=== PATIENT | male | born 1955 | race African-American/Black ===

== ENCOUNTER → 2016-11-29 | Outpatient (CLI) | payer OTHER, BC ==
[~2016-11-29] MED LIST: ALLOPURINOL 30300 M2 PO; AMLODIPINE-BEN1 EAC5 PO; ATENOLOL 50MG T50 M1 PO; EXCEDRIN CAPLE1 EACH PO; HYDROCHLOROTHIA25 M1 PO; NORCO 5-325 TA1 EACH PO; NORVASC5 MG PO; PENICILLIN V P500 MG PO; PEPCID20 MG PO; PRILOSEC OTC20 MG PO; PRILOSEC20 MG PO; PROBIOTIC1 EAC1 PO; SUPER B-50 COM1 EACH PO; TEMAZEPAM15 MG PO; ZPAK PO
== END ==
LOC: CAT 14:36
DX: K11.5 Sialolithiasis (principal); K11.21 Acute sialoadenitis

== ENCOUNTER → 2016-12-03 | Outpatient (CLI) | payer OTHER, BC | LOC: ULTRA 13:43 | DX: K11.21 Acute sialoadenitis (principal) ==

== ENCOUNTER 2017-09-04 02:02 | Inpatient (IN) | payer OTHER, BC ==
[~2017-09-04] VITALS: Ht 193 cm; Wt 99.8 kg
--- NOTE | ~2017-09-04 | D ---
[facility] [place] [address] DISCHARGE SUMMARY Name: DNOI COTA Room #: 428-P [facility] IN ..#: [id number] Admission: 09/04/17 Attend Phys: Bakari Gordon MD Discharge: 09/06/17 Date of : 51 Report #: [id number] THIS REPORT FOR: //name// CC: Bakari Gordon DATE OF SERVICE: 09/06/2017 FINAL DIAGNOSES: 1. Acute influenza. 2. Febrile illness. 3. End-stage renal disease. 4. Anticholinergic drug overdose. 5. Altered mental status due to anticholinergic drug overdose. HOSPITAL COURSE: The patient was admitted from dialysis with fever and altered mental status. Influenza swab was positive and he was treated with Tamiflu. There was also a concern that he may have taken about half a bottle of Phenergan with codeine prior to dialysis and felt there may have been an anticholinergic effect. Overnight, he was much improved and mental status returned to baseline. He had one session of hemodialysis and no other interval complication. PHYSICAL EXAMINATION: On the day of discharge: GENERAL: He was awake and alert. VITAL SIGNS: With stable vital signs. LUNGS: Clear. HEART: Regular. ABDOMEN: Soft. Normoactive bowel sounds. EXTREMITIES: No edema. DISPOSITION: He will be discharged to home with renal diet, activity as tolerated, resume all home medications plus Tamiflu for 3 more days. Follow up with Dr. Suazo in 1 week. <ELECTRONICALLY SIGNED> By: River Chavarria MD 09/06/17 1540 1028 1208 River Chavarria MD /nt
--- NOTE | ~2017-09-04 | H ---
[facility] [place] [address] HISTORY AND PHYSICAL Name: ODNI COTA Room #: 170-6 ADM IN M.R.#: [id number] Admission: 09/04/17 Attend Phys: Bakari Gordon MD Discharge: Date of : 51 Report #: [id number] THIS REPORT FOR: //name// CC: Bakari Gordon DATE OF SERVICE: 09/04/2017 CHIEF COMPLAINT: Confusion. HISTORY OF PRESENT ILLNESS: The patient is a 62-year-old gentleman who came to the Emergency Room from his dialysis center with confusion and altered mental status. He had just finished up his usually scheduled dialysis run when the staff noted that he seemed very confused and lethargic. He is normally alert and oriented and without any difficulty. Subsequently it was noted that he had recently taken about 1/4 of a bottle of cough medicine containing Phenergan and codeine for an apparent cough. By the time he presented to the Emergency Room, he had a temperature of 103.2 and influenza swab was positive. PAST MEDICAL HISTORY: Hypertension, gout, insomnia, previous knee dislocation, end-stage renal disease, on hemodialysis, chronic low back pain due to disk herniation. PAST SURGICAL HISTORY: As above. FAMILY HISTORY: Noncontributory. SOCIAL HISTORY: and lives with his . There is tobacco history, [id number]. ALLERGIES: None. MEDICATIONS: Prilosec, probiotic, amlodipine, Nephrocaps, metoprolol, oxycodone, Zoloft. REVIEW OF SYSTEMS: He does not remember how he got here, but denies headache, chest pain, shortness of breath, abdominal pain, nausea, vomiting, diarrhea, constipation, dysuria, syncope. OBJECTIVE: VITAL SIGNS: Temperature 37.8, pulse 86, respirations 14, blood pressure 172/86, O2 sat 93% on room air. GENERAL: He is awake and alert, sitting up watching TV. HEAD AND NECK: Unremarkable. LUNGS: Clear. HEART: Regular. ABDOMEN: Soft, normoactive bowel sounds. [facility] [address] [place] [address] HISTORY AND PHYSICAL Name: DONI COTA Room #: [facility] ADM IN ..#: [id number] Admission: 09/04/17 Attend Phys: Bakari Gordon MD Discharge: Date of : 51 Report #: [id number] EXTREMITIES: No edema. NEUROLOGIC: Cranial nerves intact. Speech is fluent. Motor strength 5/5 throughout. LABORATORY DATA: Pertinent findings were influenza B swab positive. ASSESSMENT: 1. Acute influenza B. 2. Febrile illness due to the above. 3. Overdose of anticholinergic medication. 4. Acute toxic metabolic encephalopathy due to the above. 5. End-stage renal disease, on hemodialysis. 6. Hypertension. PLAN: His mental status seems to be improving and he was appropriate this afternoon. Nursing staff have not picked up any new problems this afternoon in that regard. Tamiflu has been ordered and dialysis will be managed in house. Anticipate early discharge home once he is up and moving. <ELECTRONICALLY SIGNED> By: River Chavarria MD 09/04/17 1432 1419 1431 River Chavarria MD /nt
--- NOTE | ~2017-09-04 | HC ---
[facility] [place] [address] CONSULTATION Name: DONI COTA Room #: 428-P [facility] IN ..#: [id number] Admission: 09/04/17 Attend Phys: Bakari Gordon MD Discharge: 09/06/17 Date of : 51 Report #: [id number] THIS REPORT FOR: //name// CC: Bakari Gordon REASON FOR CONSULTATION: End-stage renal disease. REASON FOR PRESENTATION: Mental status issues. HISTORY OF PRESENT ILLNESS: This is a well known patient to me. This is a 62-year-old with longstanding hypertension, maintained on hemodialysis every Saturday, Saturday and Saturday. He was told by his primary care physician that he might have had a flu for the last few days. He was prescribed codeine cough syrup. In the dialysis unit, he had some mental status issues and was brought for further evaluation and management. He is back to his baseline when I evaluated him. He had some issues with high temperature in the last few days and dry cough. He also lost his appetite. No active issues related to his dialysis. He tested positive for influenza and was admitted for further evaluation and management. PAST MEDICAL HISTORY: 1. Hypertension. 2. End-stage renal disease, maintained on dialysis every Saturday, Saturday and Saturday. 3. Recent flu. 4. GERD. ALLERGIES: No known drug allergies. PAST SURGICAL HISTORY: AV fistula. SOCIAL HISTORY: . Lives with his . No drug or alcohol abuse. FAMILY HISTORY: His mother had end-stage renal disease. MEDICATIONS: 1. Metoprolol. 2. Amlodipine. 3. Aspirin. 4. Zoloft. REVIEW OF SYSTEMS: GENERAL: As per the history of present illness. CARDIOVASCULAR: No chest pain or palpitation. PULMONARY: Significant for cough. GASTROINTESTINAL: Decreased p.o. intake with some vomiting. GENITOURINARY: No frequency, no urgency. [facility] [address] [place] [address] CONSULTATION Name: DONI COTA Room #: 428-P [facility]#: [id number] Admission: 09/04/17 Attend Phys: Bakari Gordon MD Discharge: 09/06/17 Date of : 51 Report #: [id number] MUSCULOSKELETAL: Significant for myalgia. PHYSICAL EXAMINATION: GENERAL: He is alert, oriented when evaluated in the Emergency Room. VITAL SIGNS: Blood pressure was 172/86. Temperature was elevated at 39.6. Pulse rate was 86. HEAD AND NECK: No jugular venous distention, no bruit, no thyromegaly. CHEST: Clear to auscultation bilaterally. CARDIOVASCULAR: Regular with no rub. ABDOMEN: Soft, nontender with no hepatosplenomegaly. LOWER EXTREMITIES: No edema with intact peripheral pulses. LABORATORY DATA: Reviewed. Hemoglobin 9.5, BUN is 6, creatinine 3.2. BNP is elevated at 6000. Chest x-ray with no pneumonia. ASSESSMENT, IMPRESSION AND PLAN: 1. End-stage renal disease. 2. Flu. 3. Hypertension. 4. Admission. 5. Dialysis will be arranged for the patient tomorrow. 6. Tamiflu. 7. Blood pressure control. 8. No further codeine. <ELECTRONICALLY SIGNED> By: Myron Oneil MD 09/09/17 0957 1012 1044 Myron Oneil MD /nt
--- NOTE | ~2017-09-04 | EKG ---
[place] [address] [facility] [place] [address] ELECTROCARDIOGRAM REPORT Name: DONI COTA Room #: 170-6 ADM IN M.R.#: [id number] Admission: 09/04/17 Attend Phys: Bakari Gordon MD Discharge: Date of : 51 Report #: [id number] THIS REPORT FOR: //name// [facility] ED Test Date: 2017-09-04 Test Time: 02:38:18 Pat Name: DONI COTA Department: Room: 170 Gender: M Career Placement Specialist: VALENTINA : 1955 Requested By: Ignacio Garner Order Number: [id number] MD: Theo Fernández Measurements Intervals [place] Rate: 90 P: 47 [place]: 157 QRS: -50 QRSD: 84 T: 30 QT: 392 QTc: 480 Interpretive Statements Sinus rhythm Left anterior hemiblock Poor R wave progression Baseline wander in lead(s) Compared to ECG 03/26/2014 16:47:03 [place] has shifted leftward Electronically Signed On 09-04-2017 8:14:28 COMMUNITY AMBASSADOR by Theo Fernández [email or web address] <ELECTRONICALLY SIGNED> By: Theo Fernández MD, [facility] 09/04/17 0814 0238 0238 Theo Fernández MD, [facility] /EPI
--- NOTE | ~2017-09-04 | EKG ---
[place] [address] [facility] [place] [place] [address] ELECTROCARDIOGRAM REPORT Name: DONI COTA Room #: 170-6 ADM IN M.R.#: [id number] Admission: 09/04/17 Attend Phys: Bakari Gordon MD Discharge: Date of : 51 Report #: [id number] THIS REPORT FOR: //name// [facility] ED Test Date: 2017-09-04 Test Time: 02:46:07 Pat Name: DONI COTA Department: Room: 170 6 Gender: M Retail Planning Manager: VALENTINA : 1955 Requested By: Ignacio Garner Order Number: [id number] MD: Theo Fernández Measurements Intervals [place] Rate: 91 P: 42 [place]: 162 QRS: -50 QRSD: 80 T: 14 QT: 376 QTc: 463 Interpretive Statements Sinus rhythm Left anterior hemiblock Nonspecific T wave abnormality Compared to ECG 03/26/2014 16:47:03 No significant change was found Electronically Signed On 09-04-2017 8:14:52 YOUTH CAREER SPECIALIST by Theo Fernández [email or web address] <ELECTRONICALLY SIGNED> By: Theo Fernández MD, [facility] 09/04/17 0814 0246 0246 Theo Fernández MD, [facility] /EPI
[2017-09-04 02:03] VITALS: BP 194/96
[2017-09-04 02:30] LABS: BE(vivo) 6.4 mmol/L (-2 to +3); HCO3 29.6 mmol/L (22.0-26.0); PO2 VENOUS 52.7 mmHg (35.0-45.0)
[2017-09-04 02:39] LABS: HEMATOCRIT 29.1 % (42.0-52.0); HEMOGLOBIN 9.5 gm/dL (14.0-18.0); MCH 27.2 pg (26.0-34.0); MCHC 32.8 g/dL (28.0-37.0); MCV 82.9 fL (80.0-100.0); PLATELET COUNT 151 thou/uL (150-400); RBC 3.51 mil/uL (4.50-6.00); RDW 18.9 % (10.5-14.5); WBC 6.1 thou/uL (4.0-11.0)
[2017-09-04 02:48] LABS: URINE BILIRUBIN NEGATIVE (Negative); URINE BLOOD TRACE (Negative); URINE CLARITY CLEAR; URINE COLOR YELLOW; URINE GLUCOSE-RANDOM* NEGATIVE (Negative); URINE KETONES NEGATIVE (Negative); URINE LEUKOCYTES-REFLEX NEGATIVE (Negative); URINE NITRITE-REFLEX NEGATIVE (Negative); URINE PROTEIN (DIPSTICK) 3+ (Negative); URINE UROBILINOGEN 0.2 E.U./dl (0.2-1.0)
[2017-09-04 02:57] LABS: ANION GAP 7 mmol/L (7-16); BUN 6 mg/dL (7-18); CALCIUM 7.9 mg/dL (8.5-10.1); CHLORIDE 98 mmol/L (98-107); CO2 31 mmol/L (21-32); CREATININE 3.2 mg/dL (0.7-1.3); GLUCOSE 92 mg/dL (74-106); POTASSIUM 3.8 mmol/L (3.5-5.1); SODIUM 136 mmol/L (136-145)
[2017-09-04 03:05] LABS: ALBUMIN 2.3 g/dL (3.4-5.0); SALICYLATE < 2.8 mg/dL (2.8-20.0); SGOT 32 U/L (15-37); SGPT 13 U/L (30-65); TOTAL BILIRUBIN 0.2 mg/dL (<0.1-1.0); TOTAL PROTEIN 8.2 g/dL (6.4-8.2); TROPONIN-I 0.04 ng/mL (<0.06)
[2017-09-04 03:08] LABS: CRYSTALS None Seen /LPF (None Seen); SQUAMOUS None Seen /LPF (0-3); URINE RBC 3-10 Few /HPF (0-2); URINE WBC-REFLEX 0-5 Rare /HPF (0-5)
[2017-09-04 03:09] LABS: BACTERIA-REFLEX None Seen /HPF (None Seen); CASTS None Seen /LPF (None Seen)
[2017-09-04 03:24] LABS: ABSOLUTE NEUTROPHILS 4.6 thou/uL (1.4-8.2); ANISOCYTOSIS 1+
[2017-09-04] MEDS ORDERED: EXCEDRIN CAPLE1 EACH PO (04:15)
[2017-09-04] MEDS ORDERED: AMLODIPINE BESY10 MG PO (04:15)
[2017-09-04] MEDS ORDERED: METOPROLOL SUCC50 MG PO (04:16)
[2017-09-04] MEDS ORDERED: NEPHROCAPS SOFT1 CAP PO (04:16)
[2017-09-04] MEDS ORDERED: OXYCONTIN10 M1 PO (04:17)
[2017-09-04] MEDS ORDERED: ZOLOFT50 MG PO (04:18)
[2017-09-04 05:26] VITALS: BP 151/71
[2017-09-04 09:59] VITALS: BP 172/86
[2017-09-04 15:16] VITALS: BP 181/94
[2017-09-04 17:34] VITALS: BP 157/94
[2017-09-04 20:00] VITALS: BP 160/83
[2017-09-05 04:00] VITALS: BP 173/83
[2017-09-05 07:20] VITALS: BP 168/90
[2017-09-05 15:45] VITALS: BP 163/101
[2017-09-05 20:06] VITALS: BP 153/89
[2017-09-06 04:03] VITALS: BP 170/83
[2017-09-06 08:11] VITALS: BP 160/95
[2017-09-06] MEDS ORDERED: TAMIFLU30 MG PO (09:40)
[2017-09-06 09:56] VITALS: BP 160/95
== END 2017-09-06 10:31 | disposition home or self-care (01) | DRG 917 ==
LOC: ER 02:02 → EROBS 03:35 → 4E 03:35 → ENTRNSPT 09-06 10:13 → EDTRNSPTSTS 09-06 10:16 → 4E 09-06 10:31
PROVIDERS: Emergency Medicine
PROC: 5A1D70Z Performance of Urinary Filtration, Intermittent, Less than 6 Hours Per Day (ICD-10-PCS; principal; 2017-09-05)
DX: T44.3X1A Poisoning by other parasympatholytics [anticholinergics and antimuscarinics] and spasmolytics, accidental (unintentional), initial encounter (principal); G92 Toxic encephalopathy; N18.6 End stage renal disease; I12.0 Hypertensive chronic kidney disease with stage 5 chronic kidney disease or end stage renal disease; M10.9 Gout, unspecified; K21.9 Gastro-esophageal reflux disease without esophagitis; J11.1 Influenza due to unidentified influenza virus with other respiratory manifestations; G89.29 Other chronic pain; M54.5 Low back pain; Z79.899 Other long term (current) drug therapy; Z99.2 Dependence on renal dialysis; Y92.89 Other specified places as the place of occurrence of the external cause
CPT/HCPCS: 10183; 32100

== ENCOUNTER 2018-02-17 20:45 | Inpatient (IN) | payer OTHER, BC ==
[~2018-02-17] VITALS: Ht 193 cm; Wt 88.9 kg
--- NOTE | ~2018-02-17 | D ---
[facility] [place] [address] DISCHARGE SUMMARY Name: DONI COTA Room #: 358-P [facility] IN ..#: [id number] Admission: 02/17/18 Attend Phys: Bakari Gordon MD Discharge: 02/20/18 Date of : 51 Report #: [id number] THIS REPORT FOR: //name// CC: Bakari Gordon FINAL DIAGNOSES: 1. Hypertensive urgency. 2. Papilledema of the eyes. 3. End-stage renal disease. HOSPITAL COURSE: The patient was admitted with blurry vision after outpatient Ophthalmology assessment several days prior, was reported as papilledema. He initially declined ER evaluation, but then, his hemodialysis center sent him to the ER on Saturday of this week. Dr. Watts saw him and adjusted his antihypertensive regimen, which improved his symptoms. He had less pressure and pain behind the left eye. By the time of discharge, his blood pressure was 142/83. He received hemodialysis. Both CT and MRI of the head were negative for stroke or mass. MRI of the head with vein evaluation and arteriogram are unremarkable for obstruction or clot. He was recommended for an LP by Dr. Wing, which he declined at this point and wants to treat his hypertension first. PHYSICAL EXAMINATION: On the day of discharge: GENERAL: He was awake and alert. VITAL SIGNS: Stable. LUNGS: Clear. HEART: Regular. ABDOMEN: Soft, normoactive bowel sounds. EXTREMITIES: No edema. DISPOSITION: He is discharged to home with diet and activity as tolerated, resume all home medications with the change being minoxidil 10 mg twice a day. He has an appointment with [facility] on 02/21/2018 at 8:30 a.m. and that information has been given to him. Follow up with Dr. Gordon in 1-2 weeks. <ELECTRONICALLY SIGNED> By: River Chavarria MD 02/21/18 1118 1112 1149 River Chavarria MD /nt
--- NOTE | ~2018-02-17 | HC ---
[facility] [place] [address] CONSULTATION Name: DONI COTA Jaime Room #: 358-P [facility] IN .R.#: [id number] Admission: 02/17/18 Attend Phys: Bakari Gordon MD Discharge: Date of : 51 Report #: [id number] THIS REPORT FOR: //name// CC: Bakari Gordon DATE OF SERVICE: 02/18/2018 REASON FOR CONSULTATION: Malignant hypertension and end-stage renal disease. HISTORY OF PRESENT ILLNESS: A 62-year-old patient is well known to our service with difficult hypertension, has been on dialysis for a couple of years, has malignant hypertension, has had worsening hypertension recently despite escalated outpatient medication regimen. The patient has developed some blurry vision, went to his housekeeper supervisor three days ago, was diagnosed with papilledema and told to come to the Emergency Room, but the patient did not come to the Emergency Room. He was then seen in dialysis yesterday and he was told to come to the Emergency Room post-treatment, which he did. He has been treated overnight with nicardipine drip. Blood pressure reasonably well controlled and restarted on his home medications this morning. PAST MEDICAL HISTORY: Really only remarkable for the very severe hypertension. He has left AV fistula. He has had cataract surgery. No other surgeries. The only other hospitalization was for an apparent drug reaction with mental status changes occurring with cold medicines in August of this year. Past medical history is otherwise unremarkable. SOCIAL HISTORY: Cigarette smoker for many years and continues to smoke. REVIEW OF SYSTEMS: GENERAL: Otherwise, he has been feeling reasonably well although a bit tired. Appetite has been somewhat poor. EYES: Again his vision has been a little bit blurry and it is worse today in his left eye. ENT: Hearing okay, swallows okay. No mouth ulcers. ENDOCRINE: No diabetes or thyroid disease. RESPIRATORY: Shortness of breath, wheezing and asthma. CARDIAC: No chest pain, angina, heart failure or history of heart disease. GASTROINTESTINAL: Appetite a bit poor as mentioned. GENITOURINARY: Urinary stream okay without dysuria or hematuria. NEUROLOGIC: No seizure, syncope or stroke. PSYCHIATRIC: He has been on some antidepressants. FAMILY HISTORY: Positive for hypertension. His mother also had end-stage renal disease, declined not to dialyze and had a stroke. PHYSICAL EXAMINATION: [facility] [address] [place] [address] CONSULTATION Name: DONI COTA Room #: [address] [place] [address] IN ..#: [id number] Admission: 02/17/18 Attend Phys: Bakari Gordon MD Discharge: Date of : 51 Report #: [id number] GENERAL: This is a reasonably well-appearing gentleman. SKIN: Unremarkable. SKELETAL: Well developed and well nourished. HEENT: Extraocular movements are full. Vision is decreased in the left eye. Hearing intact. No scleral icterus. Mucous membranes are moist. Tongue, buccal mucosa benign. NECK: Supple, no carotid bruits. CHEST: Clear to auscultation. HEART: Regular. ABDOMEN: Soft and nontender, without bruits, masses or organomegaly. EXTREMITIES: Show peripheral pulses intact. NEUROLOGIC: Grossly intact. LABORATORY DATA: Shows hemoglobin of 11.7, white count of 6.4. Potassium of 3.1 post-dialysis and phosphorus was not done. Albumin 2.9. ASSESSMENT: 1. End-stage renal disease. We will continue with dialysis as indicated. 2. Malignant hypertension, apparently with papilledema and difficult to control blood pressure despite escalating outpatient antihypertensive dosages and now on nicardipine drip. We will reinitiate home medications with renal diet and evaluate from there. We will have Neurology see the patient as well regarding possible papilledema. <ELECTRONICALLY SIGNED> By: Mayo Watts MD 02/19/18 1159 0806 0933 Mayo Watts MD /nt
--- NOTE | ~2018-02-17 | H ---
[facility] [place] [address] HISTORY AND PHYSICAL Name: DONI COTA Room #: 358-P [facility] IN M.R.#: [id number] Admission: 02/17/18 Attend Phys: Bakari Gordon MD Discharge: Date of : 51 Report #: [id number] THIS REPORT FOR: //name// CC: Bakari Gordon DATE OF SERVICE: 02/18/2018 CHIEF COMPLAINT: Blurry vision. HISTORY OF PRESENT ILLNESS: The patient is a 62-year-old gentleman with a history of end-stage renal disease and hypertension, presented to the Emergency Room from his dialysis with some nausea and headache. This occurred on dialysis and the nurse practitioner at the facility recommended he proceed to the ER. Last week, he was seen by an slubber runner who diagnosed papilledema bilaterally and he was complaining of blurry vision. He said symptoms seem worse on the left and had some pressure headache type pain behind his left eye. He was recommended for ER assessment that day, but he declined. He then presented to dialysis yesterday and actually had an appointment with Dr. Gordon in the office today, but he was directed to ER last night. He has had difficult to control hypertension for a number of years and has been on dialysis since 2013. PAST MEDICAL HISTORY: Hypertension, end-stage renal disease, gout, influenza pneumonia in 08/2017. PAST SURGICAL HISTORY: Noncontributory. FAMILY HISTORY: Noncontributory. SOCIAL HISTORY: No chronic alcohol or tobacco use. ALLERGIES: None. MEDICATIONS: Omeprazole, atenolol, irbesartan, minoxidil, amlodipine, Zoloft. REVIEW OF SYSTEMS: He denies chest pain, fever, shortness of breath, productive cough, abdominal pain, nausea, vomiting, diarrhea, constipation, dysuria, or syncope. OBJECTIVE: VITAL SIGNS: Temperature 37.1, pulse 80, respirations 20, blood pressure 183/95, O2 sat 98% on room air. GENERAL: He is awake and alert, in no distress. HEAD AND NECK: Unremarkable. LUNGS: Clear. HEART: Regular. [facility] [address] [place] [address] HISTORY AND PHYSICAL Name: DONI COTA Room #: 358-P [facility] IN .R.#: [id number] Admission: 02/17/18 Attend Phys: Bakari Gordon MD Discharge: Date of : 51 Report #: [id number] ABDOMEN: Soft, normoactive bowel sounds. EXTREMITIES: No edema. NEUROLOGIC: Cranial nerves intact. Speech is fluent. Motor strength intact throughout. ASSESSMENT: 1. Hypertensive urgency. 2. Papilledema bilateral, possible blood pressure related. 3. End-stage renal disease. PLAN: Home medicines have been resumed by Dr. Watts and he will manage his dialysis. I have asked Dr. Wing to assess for any other intracranial process contributing to his vision loss, but this may be hypertensive related. <ELECTRONICALLY SIGNED> By: River Chavarria MD 02/19/18 0958 1035 1120 River Chavarria MD /luis
--- NOTE | ~2018-02-17 | HC ---
[facility] [place] [address] CONSULTATION Name: DONI COTA Jaime Room #: 358-P [facility] IN ..#: [id number] Admission: 02/17/18 Attend Phys: Bakari Gordon MD Discharge: Date of : 51 Report #: [id number] THIS REPORT FOR: //name// CC: Bakari Gordon DATE OF SERVICE: 02/18/2018 HISTORY OF PRESENT ILLNESS: This is a 62-year-old male patient who was evaluated by me to determine any etiology for the patient's papilledema. The patient said that his hypertension has been uncontrolled for about 2 months now. He has longstanding hypertension; in fact, he is on dialysis secondary to end-stage renal disease caused by hypertension. He started noticing some visual disturbances about a month ago. Then, he saw an rhit who noticed some papilledema and wanted him to go to the Emergency Room. He initially did not come to Emergency Room, but subsequently he came here. His vision problem is about the same as it was about a month ago. He can still see. He denies any aggravating or relieving factor for this. REVIEW OF SYSTEMS: Indicate that he has severe hypertension. He has an end-stage renal disease. He had a cataract surgery in the past, but denies any glaucoma. He had some drug reactions in the past. He feels tired in general. I carried out his 14-point review of system, and this was his relevant 14-point review of system. He denies any new ENT, cardiac, respiratory, GI, , musculoskeletal, constitutional, dermatological, hematological, psychiatric, throat, allergic symptom associated with present symptomatology. PAST MEDICAL HISTORY: Positive for hypertension. FAMILY HISTORY: Negative for early age stroke. SOCIAL HISTORY: He smokes, but does not drink any alcohol. PHYSICAL EXAMINATION: Indicate he is alert. He is responsive. He can follow simple commands. His speech, concentration, fund of knowledge and memory are at his baseline. Cranial nerve examination 2-12 is unremarkable, but I could not look at his fundus because his pupil is small and he is not able to cooperate much. His neuromuscular examinations indicate he has symmetrical strength, sensation and tone in all four extremities. His reflexes are diminished in generalized fashion. He does not have any cerebellar sign. There is no meningeal sign. He is a very well developed individual who does not have any dysmorphic features of eyes, ears and face. His pulses are palpable in the lower extremity. He has no edema, cyanosis or jaundice. His cardiac examination is unremarkable. There is no respiratory difficulty or rhonchi. There is no thyroid mass. His hearing and vision is adequate. His last blood pressure is 183/95, pulse is 90, and temperature is 98.8. [address] [address] CONSULTATION Name: DONI COTA Jaime Room #: 358-P [facility] IN .R.#: [id number] Admission: 02/17/18 Attend Phys: Bakari Gordon MD Discharge: Date of : 51 Report #: [id number] LABORATORY DATA: Indicate a white count of 6.4 and his sodium is 131. He did have a CT scan of the head, which does not appear to be showing any definite abnormality. IMPRESSION: This patient's papilledema may be because of hypertensive emergency. However, we will exclude other etiologies. I discussed with him the limitation of our hospital that an rhit does not come here on a regular basis. He needs Ophthalmology followup. This is to see how his edema is doing after controlling the blood pressure. That will be the first thing to do, but it might be desirable to do the spinal tap to rule out the possibility of pseudotumor cerebri. Pseudotumor cerebri is so uncommon in male, but it can happen. I will get an MRI done, I will get an MRV and MRA done and then decide about any further intervention, especially proceeding with the spinal tap or not. As mentioned above, it is very desirable to have for him Ophthalmology followup, but that will not be possible because no rhit comes here on a regular basis. Thank you very much for this referral and if you have any questions, please feel free to contact me. By: 1105 1820 Gómez Wing MD /luis
--- NOTE | ~2018-02-17 | EKG ---
[place] [address] [facility] [place] [address] ELECTROCARDIOGRAM REPORT Name: DONI COTA Room #: 358-P ADM IN M.R.#: [id number] Admission: 02/17/18 Attend Phys: Bakari Gordon MD Discharge: Date of : 51 Report #: [id number] THIS REPORT FOR: //name// [facility] ED Test Date: 2018-02-17 Test Time: 21:15:31 Pat Name: DONI COTA Department: Room: [facility] Gender: M Java Oracle Developer: VALENTINA : 1955 Requested By: Ignacio Garner Order Number: [id number] MD: Theo Fernández Measurements Intervals [place] Rate: 73 P: 36 [place]: 176 QRS: -50 QRSD: 97 T: 58 QT: 416 QTc: 459 Interpretive Statements Sinus rhythm Left anterior fascicular block Probable anteroseptal infarct, old Lateral T wave abnormality Compared to ECG 09/04/2017 02:46:07 Lateral T wave inversion is now present inferior Q waves are more prominent Electronically Signed On 02-18-2018 7:23:08 CDT by Theo Fernández [email or web address] <ELECTRONICALLY SIGNED> By: Theo Fernández MD, [facility] 02/18/18 0723 14 14 Theo Fernández MD, [facility] /EPI
[~2018-02-17 20:45] MED LIST changes: +AMLODIPINE BESY10 MG PO; +METOPROLOL SUCC50 MG PO; +NEPHROCAPS SOFT1 CAP PO; +OXYCONTIN10 M1 PO; +TAMIFLU30 MG PO; +ZOLOFT50 MG PO
[2018-02-17 20:51] VITALS: BP 191/96
[2018-02-17 21:06] LABS: HEMATOCRIT 35.9 % (42.0-52.0); HEMOGLOBIN 11.7 gm/dL (14.0-18.0); MCH 25.8 pg (26.0-34.0); MCHC 32.7 g/dL (28.0-37.0); RBC 4.54 mil/uL (4.50-6.00); RDW 21.3 % (10.5-14.5); WBC 6.4 thou/uL (4.0-11.0)
[2018-02-17] MEDS ORDERED: ATENOLOL (21:12)
[2018-02-17 21:13] LABS: ANION GAP 9 mmol/L (7-16); BUN 15 mg/dL (7-18); CALCIUM 8.6 mg/dL (8.5-10.1); CHLORIDE 93 mmol/L (98-107); CO2 29 mmol/L (21-32); CREATININE 5.4 mg/dL (0.7-1.3); GLUCOSE 92 mg/dL (74-106); POTASSIUM 3.1 mmol/L (3.5-5.1); SODIUM 131 mmol/L (136-145)
[2018-02-17] MEDS ORDERED: ATENOLOL 100MG100 MG PO (21:19)
[2018-02-17] MEDS ORDERED: IRBESARTAN150 MG PO (21:20)
[2018-02-17] MEDS ORDERED: MINOXIDIL2.5 MG PO (21:21)
[2018-02-17 21:22] LABS: ALBUMIN 2.9 g/dL (3.4-5.0); SGOT 26 U/L (15-37); SGPT 13 U/L (30-65); TOTAL BILIRUBIN 0.4 mg/dL (<0.1-1.0); TOTAL PROTEIN 9.8 g/dL (6.4-8.2); TROPONIN-I <0.06 ng/mL (<0.06)
[2018-02-17] MEDS ORDERED: PROBIOTIC1 EAC1 PO (21:22)
[2018-02-17 22:10] VITALS: BP 164/83
[2018-02-17 23:01] VITALS: BP 154/83; BP 175/100
[2018-02-18 03:29] VITALS: BP 175/102
[2018-02-18 08:12] VITALS: BP 183/95
[2018-02-18 11:57] VITALS: BP 157/92
[2018-02-18 16:44] VITALS: BP 163/91
[2018-02-18 20:27] VITALS: BP 160/93
[2018-02-19 04:45] VITALS: BP 162/93
[2018-02-19 06:14] LABS: ALBUMIN 2.4 g/dL (3.4-5.0); CALCIUM 7.7 mg/dL (8.5-10.1); PHOSPHORUS 3.3 mg/dL (2.5-4.9); POTASSIUM 3.6 mmol/L (3.5-5.1)
[2018-02-19 06:15] LABS: CREATININE 9.2 mg/dL (0.7-1.3)
[2018-02-19 12:17] VITALS: BP 165/93
[2018-02-19 16:04] VITALS: BP 151/78
[2018-02-19 19:25] VITALS: BP 150/90
[2018-02-20 04:55] VITALS: BP 149/90
[2018-02-20 07:24] VITALS: BP 142/83
[2018-02-20] MEDS ORDERED: NICOTINE TRANSD14 M1 TRANSDERM (11:07)
[2018-02-20] MEDS ORDERED: MINOXIDIL10 MG PO (11:07)
[2018-02-20 11:40] VITALS: BP 142/83
== END 2018-02-20 12:26 | disposition home or self-care (01) | DRG 77 ==
LOC: ER 20:45 → 3W 21:59 → EROBS 21:59 → 3W 22:41 → ENTRNSPT 02-20 12:10 → EDTRNSPTSTS 02-20 12:14 → 3W 02-20 12:26
PROVIDERS: Emergency Medicine; Internal Medicine Nephrology
PROC: 5A1D70Z Performance of Urinary Filtration, Intermittent, Less than 6 Hours Per Day (ICD-10-PCS; principal; 2018-02-19)
DX: I67.4 Hypertensive encephalopathy (principal); N18.6 End stage renal disease; H47.10 Unspecified papilledema; I12.0 Hypertensive chronic kidney disease with stage 5 chronic kidney disease or end stage renal disease; I16.0 Hypertensive urgency; M10.9 Gout, unspecified; G47.00 Insomnia, unspecified; F17.210 Nicotine dependence, cigarettes, uncomplicated; Z79.899 Other long term (current) drug therapy; Z98.49 Cataract extraction status, unspecified eye
CPT/HCPCS: 10779; 32100

== ENCOUNTER 2018-07-15 03:11 | Emergency (ER) | payer OTHER, BC ==
[~2018-07-15] VITALS: Ht 193 cm; Wt 81.7 kg
[~2018-07-15 03:11] MED LIST changes: +ATENOLOL; +ATENOLOL 100MG100 MG PO; +IRBESARTAN150 MG PO; +MINOXIDIL10 MG PO; +MINOXIDIL2.5 MG PO; +NICOTINE TRANSD14 M1 TRANSDERM
[2018-07-15] MEDS ORDERED: REMERON15 MG PO (03:22)
[2018-07-15 03:53] LABS: HEMATOCRIT 31.2 % (42.0-52.0); HEMOGLOBIN 9.7 gm/dL (14.0-18.0); MCH 24.8 pg (26.0-34.0); MCHC 31.1 g/dL (28.0-37.0); MCV 79.9 fL (80.0-100.0); RBC 3.91 mil/uL (4.50-6.00); RDW 20.8 % (10.5-14.5); WBC 6.5 thou/uL (4.0-11.0)
[2018-07-15 03:58] LABS: CALCIUM 8.9 mg/dL (8.5-10.1); CREATININE 5.8 mg/dL (0.7-1.3); POTASSIUM 5.8 mmol/L (3.5-5.1)
[2018-07-15 04:04] LABS: ALBUMIN 2.9 g/dL (3.4-5.0); TOTAL BILIRUBIN 0.3 mg/dL (<0.1-1.0); TOTAL PROTEIN 10.2 g/dL (6.4-8.2)
[2018-07-15 05:28] VITALS: BP 143/75
--- NOTE | 2018-07-15 09:23 | EKG ---
[place] [address] [place] [address] ELECTROCARDIOGRAM REPORT Name: DONI COTA [id number] Admission: 07/15/18 Attend Phys: Discharge: 07/15/18 Date of : 51 Report #: [id number] THIS REPORT FOR: //name// [facility] ED Test Date: 2018-07-15 Test Time: 03:22:34 Pat Name: DONI COTA Department: Room: Gender: Sheet Sewer: ROBB : 1955 Requested By: Jabari Perez Order Number: [id number] MD: Theo Fernández Measurements Intervals [place] Rate: 88 P: 8 [place]: 174 QRS: -49 QRSD: 78 T: 50 QT: 357 QTc: 432 Interpretive Statements Sinus rhythm Left anterior hemiblock Anterior infarct, old Compared to ECG 02/17/2018 21:15:31 T-wave abnormality no longer present Electronically Signed On 07-15-2018 9:23:16 JOB SERVICE CONSULTANT by Theo Fernández [email or web address] <ELECTRONICALLY SIGNED> By: Theo Fernández MD, [facility] 07/15/18 0923 D: 01/321 1 Theo Fernández MD, FACC /EPI
== END 2018-07-15 05:28 | disposition home or self-care (01) ==
LOC: ER 03:11
PROVIDERS: Emergency Medicine
DX: R40.0 Somnolence (principal); F32.9 Major depressive disorder, single episode, unspecified; I12.0 Hypertensive chronic kidney disease with stage 5 chronic kidney disease or end stage renal disease; N18.6 End stage renal disease; F17.210 Nicotine dependence, cigarettes, uncomplicated; Z99.2 Dependence on renal dialysis; Z86.2 Personal history of diseases of the blood and blood-forming organs and certain disorders involving the immune mechanism

== ENCOUNTER → 2018-07-22 | Outpatient (CLI) | payer OTHER, BC ==
[~2018-07-22] MED LIST changes: +REMERON15 MG PO
[2018-07-22 09:29] LABS: HEMATOCRIT 29.5 % (42.0-52.0); HEMOGLOBIN 9.4 gm/dL (14.0-18.0); MCH 25.7 pg (26.0-34.0); MCHC 31.9 g/dL (28.0-37.0); MCV 80.4 fL (80.0-100.0); RBC 3.67 mil/uL (4.50-6.00); RDW 21.7 % (10.5-14.5); WBC 6.2 thou/uL (4.0-11.0)
[2018-07-22 09:37] LABS: CALCIUM 8.9 mg/dL (8.5-10.1); CREATININE 5.9 mg/dL (0.7-1.3); POTASSIUM 5.3 mmol/L (3.5-5.1)
[2018-07-22 09:43] LABS: APTT 30.9 Seconds (24.5-32.8); INR 1.1
--- NOTE | 2018-07-22 10:44 | NUR ---
recieved patient from radiology for recovery post lumbar puncture, no c/o pain, vss, d/c instructions given, v/u, stable for discharge home with family
[2018-07-22 10:56] LABS: CSF CLARITY CLEAR; CSF COLOR COLORLESS; VOLUME 12 ml
[2018-07-22 11:00] LABS: CSF GLUCOSE 59 mg/dL (40-70); CSF PROTEIN 58 mg/dL (15-45)
[2018-07-22 11:18] LABS: CSF RBC 0 /mm3; CSF WBC 2 /mm3 (0-10)
== END | disposition home or self-care (01) ==
LOC: MRI 07:51
PROVIDERS: Psychiatry & Neurology Neuromuscular Medicine
DX: R51 Headache (principal); H53.9 Unspecified visual disturbance; H47.10 Unspecified papilledema; I12.0 Hypertensive chronic kidney disease with stage 5 chronic kidney disease or end stage renal disease; N18.6 End stage renal disease; Z98.890 Other specified postprocedural states; Z79.899 Other long term (current) drug therapy; Z79.891 Long term (current) use of opiate analgesic

== ENCOUNTER 2018-11-28 12:31 | Emergency (ER) | payer OTHER, BC ==
[~2018-11-28] VITALS: Ht 193 cm; Wt 79.4 kg
[2018-11-28] MEDS ORDERED: PROBIOTIC1 EAC1 PO (13:44)
[2018-11-28 15:34] LABS: HEMATOCRIT 31.7 % (42.0-52.0); HEMOGLOBIN 10.7 gm/dL (14.0-18.0); MCH 25.7 pg (26.0-34.0); MCHC 33.6 g/dL (28.0-37.0); MCV 76.7 fL (80.0-100.0); PLATELET COUNT 307 thou/uL (150-400); RBC 4.14 mil/uL (4.50-6.00); RDW 20.8 % (10.5-14.5); WBC 10.9 thou/uL (4.0-11.0)
[2018-11-28 15:42] LABS: ANION GAP 5 mmol/L (7-16); BUN 40 mg/dL (7-18); CALCIUM 8.4 mg/dL (8.5-10.1); CHLORIDE 96 mmol/L (98-107); CO2 30 mmol/L (21-32); CREATININE 10.7 mg/dL (0.7-1.3); GLUCOSE 109 mg/dL (74-106); POTASSIUM 3.8 mmol/L (3.5-5.1); SODIUM 131 mmol/L (136-145)
[2018-11-28 15:47] LABS: APTT 36.5 Seconds (24.5-32.8); INR 1.2; PROTIME 12.9 Seconds (9.3-11.4)
[2018-11-28 15:53] LABS: ALBUMIN 2.2 g/dL (3.4-5.0); MAGNESIUM 1.6 mg/dL (1.8-2.4); SGOT 17 U/L (15-37); SGPT 10 U/L (30-65); TOTAL BILIRUBIN 0.3 mg/dL (<0.1-1.0); TOTAL PROTEIN 9.4 g/dL (6.4-8.2); TROPONIN-I <0.06 ng/mL (<0.06)
[2018-11-28 17:10] LABS: ABSOLUTE NEUTROPHILS 8.8 thou/uL (1.4-8.2); ANISOCYTOSIS 1+; PLATELET ESTIMATE NORMAL
[2018-11-28 17:20] LABS: CSF CLARITY CLEAR; CSF COLOR COLORLESS; VOLUME 24 ml
[2018-11-28 17:26] LABS: CSF RBC 0 /mm3; CSF WBC 0 /mm3 (0-10)
[2018-11-28 17:28] LABS: CSF GLUCOSE 68 mg/dL (40-70)
[2018-11-28] MEDS ORDERED: ONDANSETRON ODT8 MG PO (18:40)
[2018-11-28] MEDS ORDERED: VALIUM2 MG PO (18:40)
--- NOTE | 2018-11-28 19:03 | EKG ---
[place] [address] [employer] [facility] [address] ELECTROCARDIOGRAM REPORT Name: DONI COTA [facility] [id number] ������������������ Admission: 11/28/18 ������������������ Attend Phys: Discharge: ������������������ Date of : 51 Report #: [id number] ����������������������������������������������������������������� [id number] THIS REPORT FOR: //name// [facility] ED Test Date: 2018-11-28 Test Time: 14:01:18 Pat Name: DONI COTA Department: Room: Gender: M Associate Manager: VALENTINA : 1955 Requested By: Adonis Lake Order Number: [id number] MD: Rehan Raza Measurements Intervals [place] Rate: 66 P: 23 [place]: 167 QRS: -56 QRSD: 80 T: QT: 435 QTc: 456 Interpretive Statements Sinus rhythm left atrial enlargement Left ventricular hypertrophy Poor R-wave progression Prominent biphasic T wave in V5 and V6 clinical correlation suggested Baseline wander in lead(s) V3 Compared to ECG 07/15/2018 03:22:34 Myocardial infarct finding still present Electronically Signed On 11-28-2018 19:03:48 CDT by Rehan Raza [email or web address] ��������������������������������������������� <ELECTRONICALLY SIGNED> ���������������������������������������� By: Rehan Raza MD ��������������������������������������������� 11/28/18 1903 1401 1401 Rehan Raza MD /EPI
[2018-11-28 19:20] VITALS: BP 140/82
== END 2018-11-28 19:21 | disposition short-term general hospital (02) ==
LOC: ER 12:31
PROVIDERS: Emergency Medicine
DX: S03.42XA Sprain of jaw, left side, initial encounter (principal); H47.11 Papilledema associated with increased intracranial pressure; R42 Dizziness and giddiness; F17.210 Nicotine dependence, cigarettes, uncomplicated; I10 Essential (primary) hypertension; G47.00 Insomnia, unspecified; F32.9 Major depressive disorder, single episode, unspecified; Z86.2 Personal history of diseases of the blood and blood-forming organs and certain disorders involving the immune mechanism; X58.XXXA Exposure to other specified factors, initial encounter; Y92.89 Other specified places as the place of occurrence of the external cause; Y93.89 Activity, other specified; Y99.8 Other external cause status

== ENCOUNTER 2019-01-22 12:29 | Inpatient (IN) | payer OTHER, BC ==
[2019-01-22] VITALS (33 sets, daily range): BP systolic 143–287; BP diastolic 40–120
[~2019-01-22] VITALS: Ht 185.4 cm; Wt 86.9 kg
--- NOTE | ~2019-01-22 | D ---
[facility] [place] [address] [place] [address] DISCHARGE SUMMARY Name: DONI COTA Room #: 247-P [facility]..#: [id number] Admission: 01/22/19 ������������������ Attend Phys: River Chavarria MD Discharge: 01/22/19 ������������������ Date of : 51 Report #: [id number] THIS REPORT FOR: //name// CC: River Villegas Evan DATE OF SERVICE: 01/23/2019 FINAL DIAGNOSES: 1. Acute liver failure. 2. Acute hypoxic respiratory failure. 3. End-stage renal disease. 4. Anemia of gastrointestinal loss. 5. Metabolic encephalopathy due to #1. 6. Coagulopathy. 7. Uncontrolled hypertension. PROCEDURES: 1. Two unit blood transfusion. 2. Hemodialysis. 3. Intubation. HOSPITAL COURSE: The patient was admitted with symptoms of liver failure and likely hepatic encephalopathy. He was taken to ICU. Dr. Zamorano from the GI service assessed him and called me and we discussed his case. He recommended transfer to a tertiary care center and begin the process to transfer him to [facility]. At the time I saw the patient, he was on hemodialysis and had a near respiratory arrest. He never dropped his vitals or pulse, but did have trouble controlling his airway with adequate oxygenation and concern for mucus and aspirate control. Dr. Lake from the Emergency Room intubated him at the bedside without incident. He stabilized on the ventilator. accepted him in transfer to higher level of care. ��������������������������������������������� ���������������������������������������� By: ��������������������������������������������� 1153 1815 River Chavarria MD /luis
[~2019-01-22 12:29] MED LIST changes: +ONDANSETRON ODT8 MG PO; +VALIUM2 MG PO
[2019-01-22 12:48] LABS: MCH 27.4 pg (26.0-34.0); RBC 1.65 mil/uL (4.50-6.00)
[2019-01-22 12:50] LABS: MCHC 31.3 g/dL (28.0-37.0); MCV 87.5 fL (80.0-100.0); PLATELET COUNT 162 thou/uL (150-400); WBC 12.7 thou/uL (4.0-11.0)
[2019-01-22 12:54] LABS: HEMATOCRIT 14.5 % (42.0-52.0); HEMOGLOBIN 4.5 gm/dL (14.0-18.0)
[2019-01-22 13:13] LABS: ABSOLUTE NEUTROPHILS 9.7 thou/uL (1.4-8.2); ANISOCYTOSIS 1+; HYPOCHROMASIA 2+; NUCLEATED RBCS 5 /100WBC; PLATELET ESTIMATE NORMAL
[2019-01-22 13:28] LABS: ALBUMIN 2.1 g/dL (3.4-5.0); CALCIUM 6.4 mg/dL (8.5-10.1); CREATININE 10.7 mg/dL (0.7-1.3); TOTAL BILIRUBIN 0.9 mg/dL (<0.1-1.0); TOTAL PROTEIN 7.3 g/dL (6.4-8.2)
[2019-01-22 14:54] LABS: APTT 31.5 Seconds (24.5-32.8); INR 2.9; PROTIME 30.2 Seconds (9.3-11.4)
--- NOTE | 2019-01-22 15:54 | NUR ---
1520-Admitted from e.r. via stretcher. Clothing cut off. Pt w lg amt old bloody stool, black in color,welled btw legs.Roberson caked w old blood. Pt very odiferous.Complete bath given, Chlorheadine wipes after.Very foul smelling mouth.Unable to get any blood from fingerstick.Old dsg's to 3 fistula sites lt arm, bandaid rt chest removed-all filthy & brown. Onel here to set up H.D.--VW 4335-Call to & message left,asking to return call.ICU phone number given.No family present.Permit for blood not signed when family in e.r.--vw
[2019-01-22 16:26] LABS: HEMATOCRIT 12.2 % (42.0-52.0)
--- NOTE | 2019-01-22 16:34 | NUR ---
CALL TO (STAT) VIA DEANN IN OFFICE RE:RECENT H&H,UNABLE TO REACH FOR BLOOD CONSENT.--VW
[2019-01-22 17:24] LABS: % SATURATION 114 % (20-39); IRON 149 ug/dL (65-175); TIBC 131 ug/dL (250-450)
[2019-01-22 17:57] LABS: TSH 0.795 uIU/mL (0.358-3.740)
[2019-01-22 18:02] LABS: FERRITIN > 20000 ng/mL (26-388)
[2019-01-22 19:24] LABS: HEMATOCRIT 22.1 % (42.0-52.0); HEMOGLOBIN 7.5 gm/dL (14.0-18.0)
--- NOTE | 2019-01-22 20:16 | NUR ---
1800- IN FOR FEW MINUTES ONLY. ALL PERMITS SIGNED. STATED PT WAS ON A MED FOR HIS BP & A PAIN PILL-ASKED HER TO CALL W LIST WHEN SHE GOT HOME.ICU RULES (PAMPLET),4 DIGIT CODE GIVEN TO .POC D/W HER.--VW
--- NOTE | 2019-01-22 20:17 | NUR ---
CONSULTED TO PLACE A CENTRAL LINE POST CODE. CONSENT PER MEDICAL NECESSITY. A #6F TRIPLE LUMEN POWER INJECTABLE JACC CENTRAL LINE WAS PLACED PER HOSPITAL POLICY AFTER A BEDSIDE TIMEOUT WAS COMPLETED. THE RIGHT JUGULAR VEIN WAS WIDLEY PATENT. LINE WAS 25CM AND ADVANCED WITHOUT DIFFICULTY. A STAT CHEST XRAY WAS ORDERED TO CONFIRM PLACEMENT.
--- NOTE | 2019-01-22 20:19 | NUR ---
1900-ENTERED ROOM TO GIVE DOSE OF SOLUMEDROL-PT W AGONAL BREATHING,TOTALLY UNRESPONSIVE.STARTED BAGGING 100%,CODE CALLED-SEE CODE BLUE FLOWSHEET.LOCOMOTIVE REPAIRER DIESEL STATED PT HAD JUST CHANGED HIS BREATHING PATTERN.--VW
--- NOTE | 2019-01-22 20:21 | NUR ---
2014-CARE TURNED OVER TO ONCOMING RN. HAD ARRANGED A TRANSFER TO ANOTHER FACILITY- HAS NOT BEEN CONTACTED,NIGHT RN TO CALL & UPDATE. SPOKE Aki Blanton & [facility] TRANSFER TEAM.[facility] CONTACTED POSTDOCTORAL RESEARCH FELLOW.--VW
[2019-01-22 20:23] LABS: BE(vivo) 2.8 mmol/L (-2 to +3); PCO2 53.2 mmHg (35.0-45.0); PO2 193.1 mmHg (80.0-100.0); pH 7.354 (7.360-7.450); sO2 99.2 % (92.0-98.0)
--- NOTE | 2019-01-22 20:31 | NUR ---
194-STAT PAGE TO VIA A.S. RE:CONSULT.-VW
--- NOTE | 2019-01-22 20:31 | NUR ---
2000- UPDATED.INFORMED OF BP ON RT CALF, TO PLACE NAVEEN FOR ACCURATE BP MONITORING.--VW
[2019-01-22 21:07] LABS: IgG 2033 mg/dL (700-1600)
--- NOTE | 2019-01-22 22:58 | NUR ---
RECEIVED REPORT FROM LOREN AND ASSUMED PATIENT CARE AT 1900. PATIENT WAS JUST INTUBATED FOR AGONAL BREATHING AND WAS GETTING HD. PATIENT HAD ORDERS TO TRANSFER TO [facility] DUE TO ACUTE LIVER FAILURE AND POSSIBLY NEEDING A LIVER TRANSPLANT. PATIENT LEFT THE UNIT AT 2130 WITH KCFD WITH PROTONIX AND ACETYLCYSTEINE DRIP INFUSING. DR. LUTZ AND DR. MUNSON NOTIFIED ABOUT THE TRANSFERAL TO . PATIENT'S SPOUSE AND SON ALSO UPDATED THE GAVE VERBAL PERMISSION OVER THE TELEPHONE FOR THE TRANSFER.
[2019-01-23 01:07] LABS: HAV IgM AB (ANTI-HAV IgM) Negative (Negative); HEPATITIS B SURFACE AG Negative (Negative); HEPATITIS C VIRUS AB 0.2 (0.0-0.9)
--- NOTE | 2019-01-23 09:17 | EKG ---
[place] [address] [address] [facility] [place] [address] ELECTROCARDIOGRAM REPORT Name: DONI COTA Room #: 247-P [facility] IN M.R.#: [id number] ������������������ Admission: 01/22/19 ������������������ Attend Phys: River Chavarria MD Discharge: 01/22/19 ������������������ Date of : 51 Report #: [id number] ����������������������������������������������������������������� [id number] THIS REPORT FOR: //name// [facility] ED Test Date: 2019-01-22 Test Time: 12:46:07 Pat Name: DONI COTA Department: Room: [facility] Gender: M 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: PIA : 1955 Requested By: Janine Vance Order Number: [id number] MD: Theo Fernández Measurements Intervals [place] Rate: 77 P: -15 RI: 173 QRS: -48 QRSD: 98 T: 157 QT: 553 QTc: 627 Interpretive Statements Sinus rhythm Left anterior hemiblock Abnrm T, probable ischemia, anterolateral lds Prolonged QT interval Compared to ECG 11/28/2018 14:01:18 T wave abnormality is more prominent QT interval has lengthened Electronically Signed On 01-23-2019 9:16:47 CDT by Theo Fernández [email or web address] ��������������������������������������������� <ELECTRONICALLY SIGNED> ���������������������������������������� By: Theo Fernández MD, [facility] ��������������������������������������������� 01/23/19 0916 1246 1246 Theo Fernández MD, [facility] /EPI
--- NOTE | 2019-01-23 11:54 | H ---
[facility] [place] [address] HISTORY AND PHYSICAL Name: DONI COTA Room #: 247-P [facility] IN ..#: [id number] Admission: 01/22/19 ������������������ Attend Phys: River Chavarria MD Discharge: 01/22/19 ������������������ Date of : 51 Report #: [id number] THIS REPORT FOR: //name// CC: River Gordon DATE OF SERVICE: 01/22/2019 ADDENDUM ATTENDING PHYSICIAN: Dr. Gordon. Presented to the Emergency Room with altered mental status. It appears that he has missed hemodialysis for the last 3 days, he said he was too weak. His said this morning that he vomited some dark contents and that was just feeling weak all day. She had not heard from him all morning and then found him very difficult to arouse and too weak on the couch to get up and walk. EMS was activated and he was brought to the Emergency Room. He is noted to have elevated potassium along with elevated LFTs. He is admitted to ICU with concern for acute liver failure and GI bleed. PAST MEDICAL HISTORY: Hypertension with a history of hypertensive emergency; end-stage renal disease, on hemodialysis; chronic low back pain; anemia of chronic disease. PAST SURGICAL HISTORY: Unknown. FAMILY HISTORY: Unknown. SOCIAL HISTORY: He was living with his . Some tobacco history. ALLERGIES: None. MEDICATIONS: Diazepam as needed, Zofran as needed, minoxidil 10 mg b.i.d., omeprazole, atenolol 100 mg, irbesartan 150 mg, probiotic, Norvasc 10 mg, Nephrocaps, oxycodone 10 mg q. 6 hours p.r.n. back pain. REVIEW OF SYSTEMS: He is unable to give review. OBJECTIVE: VITAL SIGNS: Temperature 36.3, pulse 86, respirations 18, blood pressure 143/72, O2 sat was 100%. GENERAL: He is a lethargic gentleman, he was not arousable, currently on hemodialysis. HEAD AND NECK: Unremarkable. LUNGS: Clear anteriorly with shallow respirations. [facility] [address] [place] [address] HISTORY AND PHYSICAL Name: DONI COTA Room #: [facility] IN M.R.#: [id number] Admission: 01/22/19 ������������������ Attend Phys: River Chavarria MD Discharge: 01/22/19 ������������������ Date of : 51 Report #: [id number] HEART: Regular. ABDOMEN: Soft, normoactive bowel sounds. EXTREMITIES: No edema. NEUROLOGIC: He could not follow any type of neuro exam. Minimal spontaneous movement. LAB REVIEW: Ferritin level was over 20,000, hemoglobin of 4, INR 2.9. Initial potassium was 7, creatinine was 10.7, BUN 133. AST 1581, ALT 3087, albumin 2.1. IMAGING STUDIES: Reviewed. There are some signs of ascites and anasarca and ultrasound suggest maybe some steatohepatitis. KUB was fairly unremarkable. During hemodialysis, he developed respiratory failure, now protecting his airway. His blood pressure and pulse remained steady, but there were concerns for adequate respiratory activity and a code blue was called. Again vitals, he never lost vitals, but his respiratory status was weak and he was intubated at the bedside by the ER physician. ASSESSMENT: 1. Acute hepatitis, possible autoimmune process. 2. Acute respiratory failure, multifactorial. 3. End-stage renal disease. 4. Hyperkalemia. 5. Anemia with concern of gastrointestinal bleed. 6. Hypertension. 7. Severe protein-calorie malnutrition. 8. Coagulopathy. PLAN: He has now been stabilized with intubation in ICU and has a stable airway with good saturations and as mentioned, he never lost a pulse or blood pressure, hemodialysis is ongoing and he has received 2 units of blood. I have spoken to Dr. Zamorano about his condition and concern for acute liver failure. He has recommended and began the process of reaching out to a tertiary care center for consideration of transfer to a transplant center, although he remains critically ill and it remains to be seen whether they can offer him any help. In the meantime, it is noted that steroids have been ordered and likely going to cover him for possible aspiration pneumonia given there was an episode of vomiting at home and quite a bit of suctioning of his airway prior to intubation unless the Pulmonary and Critical Care Team to follow him as well. He remains critically ill with guarded prognosis. ��������������������������������������������� <ELECTRONICALLY SIGNED> ���������������������������������������� By: River Chavarria MD ��������������������������������������������� 01/23/19 1154 22 46 River Chavarria MD /nt
--- NOTE | 2019-01-23 11:54 | H ---
[facility] [place] [address] HISTORY AND PHYSICAL Name: DONI COTA Room #: 247-P [facility] IN M.R.#: [id number] Admission: 01/22/19 ������������������ Attend Phys: River Chavarria MD Discharge: 01/22/19 ������������������ Date of : 51 Report #: [id number] THIS REPORT FOR: //name// CC: River Gordon DATE OF SERVICE: 01/22/2019 ATTENDING PHYSICIAN: Dr. Gordon. CHIEF COMPLAINT: Altered mental status. HISTORY OF PRESENT ILLNESS: The patient is a 63-year-old gentleman who came to the Emergency Room. ��������������������������������������������� <ELECTRONICALLY SIGNED> ���������������������������������������� By: River Chavarria MD ��������������������������������������������� 01/23/19 1154 1902 1910 River Chavarria MD /nt
[2019-01-23 13:10] LABS: ANA INTERPRETATION Positive (Negative)
[2019-01-26 10:09] LABS: CERULOPLASMIN 27.9 mg/dL (16.0-31.0)
== END 2019-01-22 21:30 | disposition short-term general hospital (02) | DRG 208 ==
LOC: ER 12:29 → EROBS 13:53 → ICU 14:58
PROVIDERS: Emergency Medicine; Nurse Practitioner; ADMIT Internal Medicine Geriatric Medicine
DX: J96.01 Acute respiratory failure with hypoxia (principal); K72.00 Acute and subacute hepatic failure without coma; N18.6 End stage renal disease; G93.41 Metabolic encephalopathy; E43 Unspecified severe protein-calorie malnutrition; D62 Acute posthemorrhagic anemia; K92.2 Gastrointestinal hemorrhage, unspecified; D68.9 Coagulation defect, unspecified; B17.9 Acute viral hepatitis, unspecified; N17.9 Acute kidney failure, unspecified; I13.2 Hypertensive heart and chronic kidney disease with heart failure and with stage 5 chronic kidney disease, or end stage renal disease; G47.00 Insomnia, unspecified; F32.9 Major depressive disorder, single episode, unspecified; R74.0 Nonspecific elevation of levels of transaminase and lactic acid dehydrogenase [LDH]; E87.5 Hyperkalemia; M10.9 Gout, unspecified; Z68.25 Body mass index [BMI] 25.0-25.9, adult; Z79.899 Other long term (current) drug therapy
CPT/HCPCS: 10078; 32100

== ENCOUNTER 2019-05-22 18:06 | Inpatient (IN) | payer OTHER, BC ==
[~2019-05-22] VITALS: Ht 193 cm; Wt 70.8 kg
[2019-05-22 18:11] VITALS: BP 162/96
[2019-05-22] MEDS ORDERED: CALCITRIOL0.5 MCG PO (18:48)
[2019-05-22] MEDS ORDERED: FERRLECIT62.5 MG/2 IV (18:49)
[2019-05-22] MEDS ORDERED: MIRCERA50 MCG/0.3 IV (18:50)
[2019-05-22 18:54] LABS: MCH 26.4 pg (26.0-34.0); WBC 13.5 thou/uL (4.0-11.0)
[2019-05-22 18:55] LABS: HEMATOCRIT 37.9 % (42.0-52.0); HEMOGLOBIN 12.3 gm/dL (14.0-18.0); MCHC 32.6 g/dL (28.0-37.0); PLATELET COUNT 170 thou/uL (150-400); RBC 4.67 mil/uL (4.50-6.00)
[2019-05-22] MEDS ORDERED: ASPIRIN-ACETAM1 EACH PO (19:01)
[2019-05-22] MEDS ORDERED: ATORVASTATIN CA10 MG PO (19:01)
[2019-05-22] MEDS ORDERED: CARVEDILOL25 MG PO (19:02)
[2019-05-22] MEDS ORDERED: CLONIDINE HCL0.2 M2 PO (19:02)
[2019-05-22] MEDS ORDERED: REMERON30 MG PO (19:02)
[2019-05-22] MEDS ORDERED: PERCOCET 10-321 EAC1 PO (19:04)
[2019-05-22] MEDS ORDERED: PROBIOTIC1 EAC7 PO (19:04)
[2019-05-22 19:06] LABS: APTT 30.8 Seconds (24.5-32.8); INR 1.1; PROTIME 11.3 Seconds (9.3-11.4)
[2019-05-22 19:08] LABS: ANION GAP 8 mmol/L (7-16); BUN 17 mg/dL (7-18); CALCIUM 8.8 mg/dL (8.5-10.1); CHLORIDE 93 mmol/L (98-107); CO2 31 mmol/L (21-32); CREATININE 5.1 mg/dL (0.7-1.3); GLUCOSE 93 mg/dL (74-106); POTASSIUM 3.8 mmol/L (3.5-5.1); SODIUM 132 mmol/L (136-145)
--- NOTE | 2019-05-22 19:10 | NUR ---
NIKIA COAT ([phone]) WANTS TO BE CALLED WITH UPDATES
[2019-05-22 19:18] LABS: MAGNESIUM 1.5 mg/dL (1.8-2.4); SGOT 24 U/L (15-37); SGPT 10 U/L (30-65); TOTAL BILIRUBIN 0.3 mg/dL (<0.1-1.0); TOTAL PROTEIN 9.2 g/dL (6.4-8.2); TROPONIN-I <0.06 ng/mL (<0.06)
[2019-05-22 19:25] LABS: ABSOLUTE NEUTROPHILS 11.1 thou/uL (1.4-8.2)
[2019-05-22 19:26] LABS: ANISOCYTOSIS 2+; TARGET CELLS OCCASIONAL
[2019-05-22 20:05] LABS: URINE BILIRUBIN NEGATIVE (Negative); URINE BLOOD TRACE (Negative); URINE CLARITY CLEAR; URINE COLOR YELLOW; URINE GLUCOSE-RANDOM* NEGATIVE (Negative); URINE KETONES NEGATIVE (Negative); URINE LEUKOCYTES-REFLEX NEGATIVE (Negative); URINE NITRITE-REFLEX NEGATIVE (Negative); URINE PROTEIN (DIPSTICK) 2+ (Negative); URINE SPECIFIC GRAVITY 1.015 (1.005-1.035); URINE UROBILINOGEN 0.2 E.U./dl (0.2-1.0)
[2019-05-22 20:20] LABS: SQUAMOUS None Seen /LPF (0-3)
[2019-05-22 20:21] LABS: BACTERIA-REFLEX None Seen /HPF (None Seen); CASTS None Seen /LPF (None Seen); CRYSTALS None Seen /LPF (None Seen); MUCUS None Seen strn/LPF (None Seen); TRANSITIONAL EPITHEL CELL 4-10 Moderate /LPF (None Seen); URINE RBC 0-2 Rare /HPF (0-2); URINE WBC-REFLEX 0-5 Rare /HPF (0-5)
[2019-05-22 20:24] LABS: AMP/METHAMP Negative (Negative); BARBITURATES Negative (Negative); BENZODIAZEPINES Negative (Negative); COCAINE Negative (Negative); METHADONE Negative (Negative); OPIATES Negative (Negative); PCP Negative (Negative)
[2019-05-22 21:34] VITALS: BP 141/75
[2019-05-22 22:02] VITALS: BP 148/67
[2019-05-23 04:48] VITALS: BP 142/72
[2019-05-23 06:06] LABS: HEMATOCRIT 36.4 % (42.0-52.0); HEMOGLOBIN 11.7 gm/dL (14.0-18.0); MCH 26.3 pg (26.0-34.0); MCV 82.1 fL (80.0-100.0); RBC 4.43 mil/uL (4.50-6.00); RDW 25.6 % (10.5-14.5); WBC 20.9 thou/uL (4.0-11.0)
--- NOTE | 2019-05-23 06:24 | NUR ---
ASSUME CARE 1900. PT/VITALS STABLE. DENIES ANY PAIN. LETHARGIC WITH ALTERED MENTATION ON ARRIVAL TO UNIT. PT A/O TOWARDS THE END OF SHIFT. ADEQUATE REST NOTED THROUGH THE NIGHT. NO STROKE SYMPOTMS NOTED WITH PATIENT. PT TALKS NORMALLY AND TAPIA FULLY. WBC IS HIGH from 13.[address] CRUMP ON UNIT AND BROUGHT TO HIS ATTENTION. PLAN IS TO CONTINUE TO MONITOR FOR INFECTION AND LOC. WILL CONTINUE TO FOLLOW WITH POC
[2019-05-23 06:33] LABS: CALCIUM 8.5 mg/dL (8.5-10.1); POTASSIUM 4.4 mmol/L (3.5-5.1)
[2019-05-23 06:38] LABS: CREATININE 6.5 mg/dL (0.7-1.3)
[2019-05-23 07:30] VITALS: BP 135/66
[2019-05-23 11:40] VITALS: BP 145/70
[2019-05-23 15:20] VITALS: BP 140/70
--- NOTE | 2019-05-23 17:32 | NUR ---
ASSUMED CARE PT SHIFT CHANGE. ASSESSMENTS CHARTED. MEDS GIVEN PER AUG. PT ALERT AND ORIENTED, VSS, O2 SATS WNL ON ROOM AIR. Q4 NEURO ASSESSMENTS CHARTED. PT VERY ALERT THIS SHIFT, SLEPT ON AND OFF THROUGHOUT SHIFT, SPOUSE AT BEDSIDE THIS AM-- UPDATED ON POC. SPOKE WITH DR HI REGARDING PT'S HOME MEDS, SAID HE "WILL TAKE A LOOK AT IT." PT HAS NOT HAD URINE OUTPUT-- EXPECTED PT GETS DIALYSIS. PT CURRENTLY EATING DINNER, DENYING CONCERNS/NEEDS. WILL CONT TO MONITOR AND FOLLOW POC.
[2019-05-23 19:53] VITALS: BP 138/85
[2019-05-24 04:30] VITALS: BP 167/68
--- NOTE | 2019-05-24 04:55 | HC ---
[facility] [place] [address] CONSULTATION Name: DONI COTA Room #: 203-P ADM IN M.R.#: [id number] Admission: 05/22/19 Attend Phys: Louis Scott Discharge: Date of : 51 Report #: [id number] THIS REPORT FOR: //name// CC: Jay Villegas Evan DATE OF SERVICE: 05/23/2019 INFECTIOUS DISEASE CONSULTATION ATTENDING PHYSICIAN: Dr. Jay Suazo. REASON FOR CONSULTATION: Febrile illness, uncertain etiology associated with hemodynamic instability. HISTORY OF PRESENT ILLNESS: Chart reviewed, patient examined. This is a 63-year-old gentleman, history of hypertension, who is complicated by diffuse vasculopathy, has end-stage renal disease, on thrice weekly hemodialysis while on treatment of several hours into his regular scheduled treatment. He states he was feeling fine, next thing he woke up in the hospital. He notes he has had this on 2 other occasions. He was found to be markedly hypertensive. This was associated with left facial droop and left weakness. Evaluation was fairly nonrevealing. His pressure is improved. His temperature is down. He does not have any residual weakness. White count, however, initially was 13.5, repeat this morning of 21.9. Lactic acid peaked at 2.1. Influenza antigen was negative. Blood cultures in progress. He was empirically dosed with piperacillin, tazobactam as well as vancomycin. Denies any significant pulmonary or gastrointestinal related complaints, states he is hungry this morning. ALLERGIES: None known. MEDICATIONS: Include vancomycin, p.r.n. analgesics, antiemetics, did receive piperacillin and tazobactam as well. PAST MEDICAL HISTORY: Hypertension; end-stage renal disease, on hemodialysis; history of depression; iron deficiency; peripheral neuropathy; diminished hearing on the left. SOCIAL HISTORY: Smokes half pack a day. No illicit drug use. No ethanol. FAMILY HISTORY: Noncontributory. REVIEW OF SYSTEMS: Otherwise, unremarkable 10-point review of systems with exception of the above. [facility] [address] [place] [address] CONSULTATION Name: DONI COTA Room #: 203-P ADM IN M.R.#: [id number] Admission: 05/22/19 Attend Phys: Louis Scott Discharge: Date of : 51 Report #: [id number] PHYSICAL EXAMINATION: GENERAL: He appears somewhat chronically ill, undernourished. He is alert, cooperative, mildly perturbed. VITAL SIGNS: T-max of 104.2, more recently 98.5, pulse 76, respirations 18, blood pressure 142/72. HEENT: Normocephalic. Extraocular muscles intact. NECK: Supple. LUNGS: Slightly diminished, otherwise clear breath sounds. HEART: Regular. I do not appreciate murmur. ABDOMEN: Soft, nontender, nondistended. There is no organomegaly. EXTREMITIES: No significant peripheral edema. GENITOURINARY AND RECTAL: Deferred. LABORATORY DATA: Most recent white count 20.9, H and H 11.7 and 36.4, platelets of 155. Lactic acid 1.7. Drug screen was negative. Urinalysis, 0-5 white cells. Influenza antigen was negative. TSH of 2.137. Electrolytes: Sodium 132, potassium 3.8, chloride 93, bicarbonate is 31, anion gap of 8, BUN and creatinine 17 and 5.1, glucose of 93. LFTs unremarkable. Total protein of 9.2. Estimated GFR of 14 with an albumin of 3.0. CT head showed no acute process. Chest x-ray showed no focal consolidation. ASSESSMENT: Fevers in the setting appeared to be stroke-like symptoms. Whether this is an autonomic response is not entirely clear, it is not apparent that he had previous diagnosis of infectious complication with 2 previous episodes and certainly, the fact that he was on dialysis, I am concerned about a bacteremia. We will await those culture results. I think it is reasonable to continue the vancomycin. At this point, we would monitor off gram-negative coverage. Urine does not seem to be a source nor does pneumonitis. LFTs does have elevated protein that could be suggestive of some gammopathy. We will check a serum protein electrophoresis. We will see how he does over the course of next 24 hours. <ELECTRONICALLY SIGNED> By: Edilberto Cha MD 05/24/19 0455 0640 0717 Edilberto Cha MD /nt
--- NOTE | 2019-05-24 04:58 | NUR ---
ASSUME CARE 1900. PT/VITALS STABLE. BP RUNS HIGH AT TIMES. INTERMITTENT KNEE PAIN. ADEQUATE REST NOTED WITH HEART RATE AND HEART RHYTHM STABLE. NO DISTRESS NOTED, PT A/O AND LOC INTACT THROUGHOUT THE SHIFT. PLAN IS TO CONTINUE TO MONITOR FOR INFECTION WHILE FINDING THE SOURCE AND CONTINUE ON ANTIBIOTICS. WILL CONTINUE TO MONITOR AND FOLLOW WITH POC
[2019-05-24 07:30] VITALS: BP 168/78
[2019-05-24 08:59] LABS: ABSOLUTE NEUTROPHILS 9.5 thou/uL (1.4-8.2); BASOPHILS 0.7 % (0.0-2.0); EOSINOPHILS 3.1 % (0.0-3.0); HEMATOCRIT 34.9 % (42.0-52.0); HEMOGLOBIN 11.1 gm/dL (14.0-18.0); LYMPHOCYTES 12.4 % (24.0-44.0); MCH 26.1 pg (26.0-34.0); MCV 81.7 fL (80.0-100.0); PLATELET COUNT 157 thou/uL (150-400); POLYS 73.8 % (36.0-66.0); RBC 4.27 mil/uL (4.50-6.00); RDW 24.6 % (10.5-14.5); WBC 12.8 thou/uL (4.0-11.0)
[2019-05-24 10:34] LABS: ANISOCYTOSIS 3+; MICROCYTES 1+
[2019-05-24 11:10] VITALS: BP 181/81
[2019-05-24 15:40] VITALS: BP 197/109
--- NOTE | 2019-05-24 17:15 | NUR ---
ASSUMED CARE OF PT AT SHIFT CHANGE. ASSESSMENTS CHARTED. MEDS GIVEN PER AUG. A&OX4. BP TRENDING HIGH. PT C/O OF HEADACHE, BUT DECLINED MEDS IN THE AM. DURING DIALYSIS PT C/O N/V WHICH WAS TREATED WITH IV MEDS. BP CONSISTENTLY HIGH IN LOW 200S OVER LOW 100S DURING DIALYSIS, CONTINUING HEADACHE, CORN BREEDER NOTIFIED. PAIN MEDS GIVEN FOR HEADACHE WITH NO RELIEF. 4 L REMOVED DURING DIALYSIS. AFTER DIALYSIS PT STATED WAS FEELIG A BIT BETTER. WILL CONTINUE TO MONITOR AND FOLLOW POC.
[2019-05-24 20:00] VITALS: BP 188/110
[2019-05-24 22:15] VITALS: BP 166/106
[2019-05-25] VITALS (7 sets, daily range): BP systolic 114–165; BP diastolic 71–103
--- NOTE | 2019-05-25 03:23 | NUR ---
ASSUMED PT CARE AT 1900. PT C/O SEVERE HEADACHE AND HAD ELEVATED BP. CONTACTED ADMITTING PHYSICIAN AND REC'D ORDERS. BP RECHECKED AND STILL ELEVATED PHYSICIAN CONTACTED AND REC'D ANOTHER SET OF ORDERS. PT BP DECREASED AND PT HAD RELIEF IN HEADACHE. PT SLEPT THRU NIGHT AND ASSESSMENT CHARTED. WILL CONTINUE TO MONITOR PT AND FOLLOW POC.
--- NOTE | 2019-05-25 07:39 | EKG ---
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 : 1955 Requested By: Adonis Lake Order Number: [id number] MD: Theo Fernández Measurements Intervals [place] Rate: 114 P: 45 PA: 169 QRS: -71 QRSD: 83 T: 139 QT: 310 QTc: 427 Interpretive Statements Sinus tachycardia Left anterior hemiblock LVH with secondary repolarization abnormality Compared to ECG 01/22/2019 12:46:07 anterior T-wave abnormality is less pronounced QT interval shortened Electronically Signed On 05-25-2019 7:39:15 PERSONAL DEVELOPMENT COACH by Theo Fernández [email or web address] <ELECTRONICALLY SIGNED> By: Theo Fernández MD, [facility] 05/25/19 0739 1829 1829 Theo Fernández MD, [facility] /EPI
--- NOTE | 2019-05-25 16:13 | NUR ---
Patient resides in independent home with . Multiple steps in home and patient reports no difficulty. He dializes at [facility], he drives himself to dialysis. No hx of DME. Patient reports tenative plan for dc in am. He anitcipates no dc needs. casemgt following.
--- NOTE | 2019-05-25 18:19 | NUR ---
ASSUMED CARE OF PT AT SHIFT CHANGE. ASSESSMENT CHARTED. MEDS GIVEN PER AUG. VSS. A&OX4. C/O PAIN TREATED WITH PO MEDS, NO SIGNS OF DISTRESS. WILL CONTINUE TO MONITOR AND FOLLOW POC.
[2019-05-25 19:07] LABS: GLOBULIN TOTAL 4.4 g/dL (2.2-3.9); M-SPIKE Not Observed g/dL (Not Observed)
[2019-05-26 04:58] VITALS: BP 170/99
--- NOTE | 2019-05-26 05:49 | NUR ---
PT A&O X4 ABLE TO MAKE NEEDS KNOWN. C/O LLE PAIN EFFECTIVELY CONTROLLED VIA PRN PAIN MEDS. ALSO C/O DIETZ. UP KEKE BARAJAS. DIALYSIS PT. [facility]. CONT OLIGURIC.
[2019-05-26 07:27] VITALS: BP 186/94
[2019-05-26 07:35] LABS: ABSOLUTE NEUTROPHILS 6.2 thou/uL (1.4-8.2); LYMPHOCYTES 12.1 % (24.0-44.0); MCH 26.4 pg (26.0-34.0); MCHC 32.4 g/dL (28.0-37.0); MCV 81.3 fL (80.0-100.0); MONOCYTES 10.4 % (1.0-8.0); PLATELET COUNT 205 thou/uL (150-400); POLYS 74.5 % (36.0-66.0); RBC 4.92 mil/uL (4.50-6.00); RDW 23.4 % (10.5-14.5); WBC 8.3 thou/uL (4.0-11.0)
[2019-05-26 08:11] LABS: ANISOCYTOSIS 2+; PLATELET ESTIMATE NORMAL
--- NOTE | 2019-05-26 09:44 | HC ---
[facility] [place] [address] CONSULTATION Name: DONI COTA Room #: 203-P ADM IN M.R.#: [id number] Admission: 05/22/19 Attend Phys: Louis Scott Discharge: Date of : 51 Report #: [id number] THIS REPORT FOR: //name// CC: Jay Villegas Evan REASON FOR CONSULTATION: Altered mental status. HISTORY OF PRESENT ILLNESS: A 63-year-old who was in his dialysis unit yesterday. He became hypertensive and had some mental status changes. He was not following commands. He was brought to the Emergency Room for a concern of stroke, which was ruled out. The patient has had repeated episodes of mental status issues related to hypertensive urgencies in the past. He had a significant hospitalization at with extensive workup for his mental status, his acute liver injury and everything was nonrevealing. The patient had been resistance to managing his blood pressure with ultrafiltration. He was completely back to his usual this morning when I evaluated him. He had a significantly elevated white blood cell that is being investigated by the Infectious Disease. PAST MEDICAL HISTORY: 1. End-stage renal disease. 2. Hypertension, uncontrolled. 3. Intracranial hypertension. 4. Recent liver failure. 5. Fistula. 6. Bilateral knee dislocations. MEDICATIONS: 1. Irbesartan. 2. Aspirin. 3. Carvedilol. 4. Clonidine. 5. Mirtazapine. 6. Amlodipine. ALLERGIES: None. SOCIAL HISTORY: Continues to smoke. No reported drug or alcohol abuse. REVIEW OF SYSTEMS: GENERAL: No fever or chills. CARDIOVASCULAR: No chest pain or palpitation. PULMONARY: No cough or hemoptysis. GASTROINTESTINAL: No nausea or vomiting. GENITOURINARY: No frequency, no urgency. NEUROLOGICAL: As per the history of present illness. [facility] [address] [place] [address] CONSULTATION Name: DONI COTA Room #: 203-P [facility] IN .R.#: [id number] Admission: 05/22/19 Attend Phys: Louis Scott Discharge: Date of : 51 Report #: [id number] FAMILY HISTORY: Significant for hypertension. PHYSICAL EXAMINATION: VITAL SIGNS: Blood pressure is 142/72. HEAD AND NECK: No jugular venous distention. CHEST: Clear to auscultation bilaterally. CARDIOVASCULAR: Regular with no rub detected. ABDOMEN: Soft, nontender. LOWER EXTREMITIES: No edema. LABORATORY DATA: Laboratory values reviewed. White blood cell count is 20.9. Sodium is 134, BUN is 23, creatinine is 6.5. Troponins are negative. C-reactive protein is mildly elevated at 27.5. ASSESSMENT, IMPRESSION AND PLAN: 1. Altered mental status, resolved. 2. End-stage renal disease. 3. Leukocytosis. 4. Recent prolonged hospital stay at for altered mental status and acute liver failure with nonrevealing investigations. 5. We will arrange for the patient to have hemodialysis tomorrow. Mental status changes workup. 6. ID is following for his leukocytosis. <ELECTRONICALLY SIGNED> By: Myron Oneil MD 05/26/19 [id number] Myron Oneil MD /nt
[2019-05-26 15:07] VITALS: BP 109/75
--- NOTE | 2019-05-26 16:35 | NUR ---
Patient AOx4. During dialysis patient had an episode where bp dropped to 70/43. Dialysis nurse called nurse into the room to help with patient. Patient was diaphoretic and unresponsive. He was breathing and did hae a pulse. Afte a minute patient did open his eyes and began responding to nurse. after about 10 minutes bp was back up to 89/56 and patient was able to squeeze hands and state where he was. Patient had an episode of dry heaves during this lazarus=iod and was given zofran which resolved the nausea. Hospitalist and digital marketing analyst were informed. Content Strategy Lead and dialysis nurse took care of further orders. Patien received albumin. After an hour patient was fully rcovered and back to baseline. This eveing patient is resting in bed and has apetite for dinner. States headache is resolved.
[2019-05-26 19:32] VITALS: BP 91/70
[2019-05-27 05:31] VITALS: BP 122/63
--- NOTE | 2019-05-27 06:33 | NUR ---
PATIENTS CARES WERE ASSUMED AT SHIFT CHANGE. PATIENT WAS ASSESSED AND MEDS WERE PASSED. PATIENT WAS WEIGHT TODAY AND HE WAS 157.3. THIS PATIENT HAS LOST 21 POUNDS SINCE ADMITT. THIS NEED TO BE PASSED TO DAY SHIFT TO HAVE THIS ISSUE ADDRESSED. THE PATIENT IS VERY CONCERNED FOR HIMSELF.HOURLY ROUNDS WERE DONE. THE BED IS IN A LOW AND LOCKED POSITION.
[2019-05-27 08:21] VITALS: BP 90/57
--- NOTE | 2019-05-27 11:56 | NUR ---
PT DISCHARGING TODAY TO HOME PT HAS DIALYSIS AT [facility] FAXED PROG. NOTE AND DIALYSIS FLOWSHEETS RECEIVED CONFIRMATION.
--- NOTE | 2019-05-27 11:58 | NUR ---
RD consult received for pt with wt loss. Upon visit, pt very anxious to be discharged and asking what time this will occur. Admit with fever, sepsis, ESRD/dialysis, htn. Wt has declined over course of 5 day admit about 7 lb and overall about 23 lb since 07/2018 admit. Pt feels related to dialysis and taking off too much fluid. Appetite is mostly good but he wants to go home to eat. Reviewed renal guidelines, and suggest addition of nepro supplement at home or days of dialysis. Encouraged to discuss fluid concerns with dialysis with his renal physician. Discharge pending today.
[2019-05-27] MEDS ORDERED: IRBESARTAN150 MG PO (14:57)
[2019-05-27 15:03] VITALS: BP 90/57
--- NOTE | 2019-05-27 15:23 | NUR ---
ASSUMED CARE PT SHIFT CHANGE. ASSESSMENTS CHARTED. MEDS GIVEN PER AUG. PT ALERT AND ORIENTED. VSS. DENIES CHEST PAIN/SOB. O2 SATS WNL ON ROOM AIR. UP AD ZULEIKA. SPOUSE AT BEDSIDE THIS AFTERNOON. DC ORDERS ACKNOWLEDGED AND IMPLEMENTED. IV REMOVED. TELE REMOVED. PT LEFT UNIT WITH SPOUSE AT APPROX 1520
--- NOTE | 2019-06-01 19:35 | H ---
[facility] [place] [address] [place] [address] HISTORY AND PHYSICAL Name: DONI COTA Room #: 203-P [facility] IN M.R.#: [id number] Admission: 05/22/19 Attend Phys: Louis Scott Discharge: 05/27/19 Date of : 51 Report #: [id number] THIS REPORT FOR: //name// CC: Jay Villegas Evan DATE OF SERVICE: 05/22/2019 CHIEF COMPLAINT: This is a delightful 63-year-old gentleman with sepsis. HISTORY OF PRESENT ILLNESS: This is a 63-year-old male that was unable to give us any history upon arrival to the Emergency Room, but apparently over 3 hours and he was dialysis, he became febrile with altered mental status that required 911 transfer to the hospital where findings of severe hypertension were noted along with a finding suspicious for underlying septicemia. PAST MEDICAL HISTORY: Noteworthy for history of hypertension, lumbar disk disease, end-stage renal disease with dialysis with a left arm fistula and underlying depression. MEDICATIONS: He is currently on omeprazole, irbesartan, calcitriol, Ferrex, epoetin, atorvastatin, carvedilol, clonidine, Remeron, oxycodone, probiotics, amlodipine and vitamins. ALLERGIES: He has no known drug allergies. FAMILY HISTORY: Noncontributory. SOCIAL HISTORY: He is still fully functional and there was discussion about whether or not he is ready for a renal transplant. REVIEW OF SYSTEMS: Now otherwise negative. PHYSICAL EXAMINATION: GENERAL: Shows him to be awake, alert and oriented. He is eating breakfast. VITAL SIGNS: Stable. CHEST: Clear. CARDIOVASCULAR: Showed a regular rate and rhythm. ABDOMEN: Soft and nontender. EXTREMITIES: The fistula was noted in the arm. Extremities were negative. ASSESSMENT AND PLAN: This is a patient who had acute onset of fever and altered mental status on the dialysis machine toward of his treatment and this is suspicious for a bacteremic event in my opinion. We will await cultures. IV [facility] [address] [place] [address] HISTORY AND PHYSICAL Name: DONI COTA Room #: 203-[facility] IN M.R.#: [id number] Admission: 05/22/19 Attend Phys: Louis Scott Discharge: 05/27/19 Date of : 51 Report #: [id number] antibiotics and broad spectrum have been started and clinically, he has returned to baseline. <ELECTRONICALLY SIGNED> By: Jay Suazo MD 06/01/19 [id number] Jay Suazo MD /nt
== END 2019-05-27 15:20 | disposition home or self-care (01) | DRG 871 ==
LOC: ER 18:06 → 2N 20:31 → EROBS 20:31 → 2N 21:37 → ENTRNSPT 05-27 15:18 → EDTRNSPTSTS 05-27 15:19 → 2N 05-27 15:20
PROVIDERS: Emergency Medicine; Specialist; ADMIT Internal Medicine
PROC: 5A1D70Z Performance of Urinary Filtration, Intermittent, Less than 6 Hours Per Day (ICD-10-PCS; principal; 2019-05-26)
DX: A41.9 Sepsis, unspecified organism (principal); N18.6 End stage renal disease; G93.40 Encephalopathy, unspecified; I12.0 Hypertensive chronic kidney disease with stage 5 chronic kidney disease or end stage renal disease; F32.9 Major depressive disorder, single episode, unspecified; F17.210 Nicotine dependence, cigarettes, uncomplicated; E83.42 Hypomagnesemia; G62.9 Polyneuropathy, unspecified; I16.0 Hypertensive urgency; I95.9 Hypotension, unspecified; Z79.899 Other long term (current) drug therapy; Z79.82 Long term (current) use of aspirin; Z99.2 Dependence on renal dialysis
CPT/HCPCS: 10081; 32100

== ENCOUNTER → 2020-02-23 | Outpatient (CLI) | payer OTHER, BC ==
[~2020-02-23] MED LIST changes: +ASPIRIN-ACETAM1 EACH PO; +ATORVASTATIN CA10 MG PO; +CALCITRIOL0.5 MCG PO; +CARVEDILOL25 MG PO; +CLONIDINE HCL0.2 M2 PO; +FERRLECIT62.5 MG/2 IV; +MIRCERA50 MCG/0.3 IV; +PERCOCET 10-321 EAC1 PO; +PROBIOTIC1 EAC7 PO; +REMERON30 MG PO
== END ==
LOC: RAD 08:48
PROVIDERS: ATTEND Internal Medicine
DX: R91.1 Solitary pulmonary nodule (principal); R63.4 Abnormal weight loss

== ENCOUNTER → 2020-03-15 | Outpatient (CLI) | payer OTHER, BC | LOC: CAT 12:57 | PROVIDERS: ATTEND Internal Medicine | DX: J43.9 Emphysema, unspecified (principal); R91.8 Other nonspecific abnormal finding of lung field; I77.810 Thoracic aortic ectasia; M47.814 Spondylosis without myelopathy or radiculopathy, thoracic region; N28.1 Cyst of kidney, acquired; R93.89 Abnormal findings on diagnostic imaging of other specified body structures ==

== ENCOUNTER 2021-01-18 14:42 | Inpatient (IN) | payer OTHER ==
[~2021-01-18] VITALS: Ht 193 cm; Wt 80.4 kg
--- NOTE | ~2021-01-18 | EMS ---
[facility] [address] [place] [address] EMS Patient Care Report Name: DONI COTA Room #: REG SARA Sherman#: [id number] Admission: 01/18/21 Attend Phys: Discharge: Date of : 51 Report #: [id number] THIS REPORT FOR: //name// Report Transmitted: 01/18/2021 15:01 EMS Care Summary [place], [place]/[facility] Incident [id number] @ 01/18/2021 13:57 Incident Location [address] [place] [address] Patient DONI COTA Male, 65 Years 1955 Patient Address [address] [place] [address] Patient History Other,Hypertension (HTN),Kidney/Renal Failure,Dialysis, Patient Allergies No known allergies, Chief Complaint weakness Disposition Transported No Lights/[place] Dispatch Reason Sick Person Transported To [facility] Narrative pt found seated in chair, a&o. his called 911 for him. she states he missed dialysis today b/c he was too weak for her to get him in the car. she reports he has had increased weakness and confusion over the past week. he had been driving himself to dialysis but several days ago he got lost driving and ended up 3 hours away, somewhere in [place]. 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 he seems to have some difficulty finding the correct word [facility] [address] [place] [address] EMS Patient Care Report Name: DONI COTA Room #: REG SARA M.R.#: [id number] Admission: 01/18/21 Attend Phys: Discharge: Date of : 51 Report #: [id number] he wants to use. pt denies pain. he has also had small involuntary muscle movements that are new. pt is req eval at [facility]. pt to stair chair, and out to cot. VS, transport w/o change. Initial Vitals @14:22P: 95,R: 18,BP: 93/59,Pain: 0/10,GCS: 15,Glucose: 112,CO: 15,SpO2: 93,Revised Trauma: 12, Assessments @14:05MENTAL:Confused,Person Oriented,Event Oriented,Place Oriented,Time Oriented,SKIN:No Abnormalities,HEENT:Head/Face: No Abnormalities,LUNG SOUNDS:ABDOMEN:PELVIS//GI:EXTREMITIES:Left Arm: Other,PULSE:Radial: 2+ Normal,NEURO: Impression Generalized Weakness Procedures @14:05ALS AssessmentResponse: Unchanged@14:15StretcherResponse: Unchanged@14:10StairchairResponse: Unchanged@14:203-Lead ECGResponse: Unchanged Timeline 13:55,Call Received 13:55,Dispatch Notified 13:57,Dispatched 13:58,En Route 14:04,On Scene 14:05,At Patient 14:05,ALS Assessment,Response: Unchanged 14:10,Stairchair,Response: Unchanged 14:15,Stretcher,Response: Unchanged 14:20,3-Lead ECG,Response: Unchanged 14:22,BP: 93/59 M,PULSE: 95,RR: 18 R,SPO2: 93 Ox,ETCO2: ,B,PAIN: 0,GCS: 15, 14:22,Depart Scene 14:52,At Destination 14:54,Call Closed Disclaimer v1.1 Copyright 2020 [employer] This EMS Care Summary contains data elements from the applicable legal record (which may be displayed differently). It is designed to provide pertinent information for the following purposes: continuity of care, clinical quality, and state data reporting. The complete legal record is available to ED staff and administrators of the receiving hospital in [employer]'s Patient Tracker. All data is provided "as is."
--- NOTE | ~2021-01-18 | EMS ---
[facility] [address] [place] [address] EMS Patient Care Report Name: DONI COTA Room #: 205-P ADM IN M.R.#: [id number] Admission: 01/18/21 Attend Phys: Clifton Obando MD Discharge: Date of : 51 Report #: [id number] THIS REPORT FOR: //name// Report Transmitted: 01/19/2021 12:06 EMS Care Summary [place], [place]/[facility] Incident [id number] @ 01/18/2021 13:57 Incident Location [address] [place] [address] Patient DONI COTA Male, 65 Years 1955 Patient Address [address] [place] [address] Patient History Other,Hypertension (HTN),Kidney/Renal Failure,Dialysis, Patient Allergies No known allergies, Chief Complaint weakness Disposition Transported No Lights/[place] Dispatch Reason Sick Person Transported To [facility] Narrative pt found seated in chair, a&o. his called 911 for him. she states he missed dialysis today b/c he was too weak for her to get him in the car. she reports he has had increased weakness and confusion over the past week. he had been driving himself to dialysis but several days ago he got lost driving and ended up 3 hours away, somewhere in [place]. 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 he seems to have some difficulty finding the correct word [facility] [address] [place] [address] EMS Patient Care Report Name: DONI COTA Room #: 205-P ADM IN M.R.#: [id number] Admission: 01/18/21 Attend Phys: Clifton Obando MD Discharge: Date of : 51 Report #: [id number] he wants to use. pt denies pain. he has also had small involuntary muscle movements that are new. pt is rachell lowery at [facility]. pt to stair chair, and out to cot. VS, transport w/o change. Initial Vitals @14:22P: 95,R: 18,BP: 93/59,Pain: 0/10,GCS: 15,Glucose: 112,CO: 15,SpO2: 93,Revised Trauma: 12, Assessments @14:05MENTAL:Confused,Person Oriented,Event Oriented,Place Oriented,Time Oriented,SKIN:No Abnormalities,HEENT:Head/Face: No Abnormalities,LUNG SOUNDS:ABDOMEN:PELVIS//GI:EXTREMITIES:Left Arm: Other,PULSE:Radial: 2+ Normal,NEURO: Impression Generalized Weakness Procedures @14:05ALS AssessmentResponse: Unchanged@14:15StretcherResponse: Unchanged@14:10StairchairResponse: Unchanged@14:203-Lead ECGResponse: Unchanged Timeline 13:55,Call Received 13:55,Dispatch Notified 13:57,Dispatched 13:58,En Route 14:04,On Scene 14:05,At Patient 14:05,ALS Assessment,Response: Unchanged 14:10,Stairchair,Response: Unchanged 14:15,Stretcher,Response: Unchanged 14:20,3-Lead ECG,Response: Unchanged 14:22,BP: 93/59 M,PULSE: 95,RR: 18 R,SPO2: 93 Ox,ETCO2: ,B,PAIN: 0,GCS: 15, 14:22,Depart Scene 14:52,At Destination 14:54,Call Closed Disclaimer v1.1 Copyright 2020 [employer] This EMS Care Summary contains data elements from the applicable legal record (which may be displayed differently). It is designed to provide pertinent information for the following purposes: continuity of care, clinical quality, and state data reporting. The complete legal record is available to ED staff and administrators of the receiving hospital in [employer]'s Patient Tracker. All data is provided "as is."
--- NOTE | ~2021-01-18 | HC ---
[facility] [place] [address] [address] [place] [address] CONSULTATION Name: DONI COTA Room #: 205-P ADM IN M.R.#: [id number] Admission: 01/18/21 Attend Phys: Clifton Obando MD Discharge: Date of : 51 Report #: [id number] THIS REPORT FOR: cc: Bakari Gordon MD, Stany A. MD Khosla, Parveen K. MD ~ DATE OF SERVICE: 01/19/2021 HISTORY OF PRESENT ILLNESS: This is a 65-year-old male patient who was evaluated by me for confusion. I reviewed all the records in the computer and the patient provides some history, but he is an unreliable historian because of the patient's difficulty with memory. It looks like the patient is having confusion at least for 2 weeks according to the . I reviewed large portion of his old records. In fact, we have seen this patient for pseudotumor cerebri at one time. Initially, he refused treatment, but looks like subsequently, he underwent a spinal tap. If I remember correctly, he was referred to [facility], but he never followed up with that. He does not remember anything about that. He is still confused, but he thinks he is better than yesterday. REVIEW OF SYSTEMS: A 14-point review of system was carried out. This patient is a dialysis patient. He has a history of pseudotumor cerebri. He has been extensively worked up in the past. Even this time, he had multiple workups including MRI and MRA, they are mostly unremarkable. He does not have any acute changes on MRI, which can explain his symptoms. He does have atrophy. This was his relevant 14-point review of systems. He has numerous other medical issues and review of systems is positive for hypertension, insomnia, knee problems, leg numbness, back pain which is going on since ____, surgery in the eyes, headache, depression, iron deficiency. PAST MEDICAL HISTORY: Positive for pseudotumor cerebri and review of some of the records indicate that he has been to the hospital for confusion before, but that was because of missed dialysis. FAMILY HISTORY: Negative according to him for any early age stroke. SOCIAL HISTORY: He smokes. PHYSICAL EXAMINATION: He is alert. He is responsive. He knew what month it is. He did not know the day. He could not name the president, but he knew what hospital he was in. Cranial nerve examination, I could not look at the fundus, but he counted fingers in most of the visual field, but I cannot exclude any visual field deficit. He moves all 4 extremities. He did not cooperate with sensory or motor examination. I tried to do the position sense on him, sometimes he guess it correct, sometime he does not, sometime he does not even follow the instruction. There is no meningeal sign in this patient. Cardiorespiratory examinations appear unremarkable. [address] [address] CONSULTATION Name: DONI COTA Room #: 205-P ADM IN M.R.#: [id number] Admission: 01/18/21 Attend Phys: Clifton Obando MD Discharge: Date of : 51 Report #: [id number] IMPRESSION AND PLAN: Confusion of unknown etiology in this patient. It may be metabolic encephalopathy as there is no evidence of stroke. We will get an EEG done. This patient needs to follow up with a neuroophthalmologist for his pseudotumor cerebri. He has refused spinal tap in the past and he does it again, but only other option may be to do the spinal tap and measured his pressure at that time. More than 50 minutes of time was spent taking care of this patient today and majority was spent in counseling and coordinating and counseling included his as well as him Thank you very much for this referral. By: 1303 2201 Gómez Sarkar MD /nt
--- NOTE | ~2021-01-18 | HC ---
[facility] [place] [address] CONSULTATION Name: DONI COTA Room #: 205-P [facility] IN M.R.#: [id number] Admission: 01/18/21 Attend Phys: Clifton Obando MD Discharge: 01/25/21 Date of : 51 Report #: [id number] THIS REPORT FOR: cc: Bakari Gordon MD,Bakari Magallanes,Evert Helton MD ~ cc: Bakari Gordon MD DATE OF SERVICE: 01/25/2021 SURGEON: Evert Magallanes MD REFERRING PHYSICIAN: Dr. Gordon. REASON FOR CONSULTATION: Hearing loss. HISTORY OF PRESENT ILLNESS: The patient is a 65-year-old male admitted to [facility] on 01/18. I have reviewed his chart and notes. On my examination this morning, the patient was remarkably cogent compared to previous physician's notes on his encephalopathy. Discussion was given to the patient while he was having dialysis with his dialysis nurse present. The patient tells me that he has had a longstanding sensorineural hearing loss that is profound in his left ear that has been present for decades. He does not think that there has been any recent change in hearing on the right, although the patient does have difficulty responding to speech and did better with a female voice of the dialysis nurse talking into his ear on the right. I have reviewed recent workup. The patient's lumbar puncture was negative for syphilis antibodies. JESSIE was positive, but this presentation is not consistent with an autoimmune hearing loss, which would be more commonly bilateral. In addition, a suggestion has been made of pseudotumor cerebri. Again, this would be a bilateral change in hearing. The patient denies hearing aids use. The patient was admitted with an acute mental status change felt to be secondary to encephalopathy from infectious disease. He has end-stage renal disease and was being dialyzed this morning as I visited with him, his lump room supervisor was present. Apparently, he made a detour to [place] on his way to dialysis the Saturday before admission, was found by the police and returned back to [place], which is his home. His medical problem list is extensive and reviewed including end-stage renal disease, on dialysis, cachexia, malnutrition, anemia of blood loss, altered mental status, blurred vision, confusion, fever, weakness, history of GI bleed, hyperkalemia, hypertension, hypomagnesemia, sepsis, somnolence, transaminitis. [facility] [address] [place] [address] CONSULTATION Name: DONI COTA Room #: 205-P [facility] IN [facility].#: [id number] Admission: 01/18/21 Attend Phys: Clifton Obando MD Discharge: 01/25/21 Date of : 51 Report #: [id number] ALLERGIES: None. MEDICATIONS: His medicines were reviewed in his MAR. REVIEW OF SYSTEMS: The patient appears happy and other than his ongoing dialysis and abdominal pain, which he complains of wanting pain medicine, 12-point review of systems is otherwise negative. PHYSICAL EXAMINATION: GENERAL: Show a cachectic-appearing 65-year-old male, appearing older than his stated age, in bed, currently receiving dialysis. VITAL SIGNS: Temperature of 97.4, pulse of 102, blood pressure 151/99. He is 98% on room air. HEENT: Otologic exam shows bilateral normal canals and normal tympanic membranes. No middle ear effusion. No cerumen. Extraocular muscles are intact. Pupils are equal, round and reactive to light. Nasal exam shows a deviated septum to the left, nonobstructing. Oral cavity edentulous with upper and lower dentures in place. Hypopharynx, no erythema, normal excursion of the palate. NECK: No adenopathy, no masses, no thyromegaly. No carotid bruits. NEUROLOGIC: Cranial nerves 2-12 are otherwise intact. Motor, sensory and cerebellar exams are otherwise nonlocalizing. TUNING FORK EXAM: Shows lateralization to his right ear at 256 and 1012 Hz. Air conduction greater than bone conduction on the right. Some bone conduction on the left transferring to the right. There is a profound loss on the right side by tuning fork. LABORATORY DATA: I have reviewed his recent lumbar puncture results showing a normal syphilis antibody, but elevated JESSIE. Hemoglobin is 35.7. The patient's potassium was elevated today 6.3, on dialysis. Vitamin B6 was within normal range at 7.3. Zinc was 72. Copper was 140. ASSESSMENT: 1. Profound sensorineural hearing loss, left ear. This seems to be longstanding and present for decades. I have no old notes to compare to. This will be better assessed in the office with an audiogram and the patient should consider hearing aids. His clinical presentation is not consistent with an autoimmune hearing loss with elevated CSF JESSIE. In addition, no evidence of Krish syndrome. 2. Mentioned in his chart of pseudotumor cerebri with elevated CSF pressure and papilledema. We will defer to ophthalmology and neurology. Again, this would not be consistent with a unilateral hearing loss. 3. Toxic encephalopathy, likely infectious, which seemingly was improved on today's examination. [facility] [address] [place] [address] CONSULTATION Name: DONI COTA Room #: 205-P [facility] IN [facility].#: [id number] Admission: 01/18/21 Attend Phys: Clifton Obando MD Discharge: 01/25/21 Date of : 51 Report #: [id number] 4. End-stage renal disease, on dialysis. 5. Mental status change, likely with dementia. PLAN: Again, this would be best assessed in my office with a full audiogram as I have no records to review. We can then discuss with the patient at that time hearing aid fitting, which would be in his best interest. I appreciate the consultation. I will not plan to follow along with you in the hospital. Please call for any change in status. By: [id number] Evert Magallanes MD /nt
[2021-01-18 14:43] VITALS: BP 120/68
[2021-01-18 15:21] LABS: ABSOLUTE NEUTROPHILS 8.2 thou/uL (1.4-8.2); BASOPHILS 0.7 % (0.0-2.0); EOSINOPHILS 3.6 % (0.0-3.0); HEMATOCRIT 33.1 % (42.0-52.0); HEMOGLOBIN 10.8 gm/dL (14.0-18.0); LYMPHOCYTES 9.4 % (24.0-44.0); MCH 26.6 pg (26.0-34.0); MCHC 32.7 g/dL (28.0-37.0); MCV 81.4 fL (80.0-100.0); MONOCYTES 17.3 % (1.0-8.0); PLATELET COUNT 327 thou/uL (150-400); RBC 4.07 mil/uL (4.50-6.00); RDW 19.7 % (10.5-14.5); WBC 11.8 thou/uL (4.0-11.0)
[2021-01-18] MEDS ORDERED: MEGESTROL ACETA40 MG PO (15:21)
[2021-01-18] MEDS ORDERED: HYDRALAZINE HC100 MG PO (15:21)
[2021-01-18 15:27] LABS: ANION GAP 10 mmol/L (7-16); BUN 40 mg/dL (7-18); CALCIUM 9.3 mg/dL (8.5-10.1); CHLORIDE 94 mmol/L (98-107); CO2 30 mmol/L (21-32); CREATININE 8.9 mg/dL (0.7-1.3); GLUCOSE 96 mg/dL (74-106); POTASSIUM 4.7 mmol/L (3.5-5.1); SODIUM 134 mmol/L (136-145)
[2021-01-18 15:37] LABS: ALBUMIN 2.7 g/dL (3.4-5.0); SGOT 21 U/L (15-37); SGPT 8 U/L (16-63); TOTAL BILIRUBIN 0.4 mg/dL (0.2-1.0); TOTAL PROTEIN 9.5 g/dL (6.4-8.2); TROPONIN-I <0.06 ng/mL (<0.06)
[2021-01-18 16:27] LABS: APTT 31.6 Seconds (24.5-32.8); INR 1.18; PROTIME 12.8 Seconds (10.5-12.1)
[2021-01-18 18:03] LABS: MAGNESIUM 1.9 mg/dL (1.8-2.4)
--- NOTE | 2021-01-18 18:13 | NUR ---
CALL TO DR GEORGE HE IS AWARE OF PT C/O PAIN, NO NEW ORDERS RECEIVED.
--- NOTE | 2021-01-18 19:54 | NUR ---
SPOKE WITH PT KATHY, PT STATING THAT NOONE HAD BEEN IN HIS ROOM AT ALL DURRING THE DAY SHIFT AND THAT HE HAS BEEN REQUESTING MEDICATION AND NOT GETTING ANY. ASSURED PT FAMILY THAT THE NURSE HAD BEEN IN HIS ROOM FREQUENTLY AND THE REASON HE HAD BEEN MOVED FROM RM 15 TO RM 9 WAS DUE TO THE PT INCREASING CONFUSION AND NEED TO BE CLOSER TO THE NURSES STATION. INFORMED FAMILY THAT NO MEDICATIONS HAD BEEN ORDERED AND THAT I WOULD PAGE THE INPATIENT PROVIDER AND ASK THEM TO COME SPEAK TO THE PATIENT AND THE FAMIL MEMBER. PRINTED OUT TRANSFER OF CARE INFORMATION TO SHOW FMAILY MEMBER LAB RESULTS AND CARE THAT PT HAS RECEIVED.
[2021-01-18 20:12] LABS: ALBUMIN 2.7 g/dL (3.4-5.0); TOTAL PROTEIN 9.5 g/dL (6.4-8.2)
[2021-01-18 23:15] VITALS: BP 106/59
[2021-01-19 00:29] VITALS: BP 105/62
[2021-01-19 00:52] VITALS: BP 107/69
--- NOTE | 2021-01-19 02:01 | NUR ---
PATIENT IS A NEW ADMISSION TO THE UNIT THIS SHIFT. HE ARRIVED VIA CART FROM THE ER AND WAS TRANSFERRED TO THE BED WITHOUT INCIDENT. PATIENT IS ALERT AND ORIENTED BUT FORGETFUL. NIH RATES FOR APHASIA. WEAKNESS IS BILATERAL. NURSE TO COMPLETE ADMISSION AND INITIATE PLAN OF CARE.
[2021-01-19 04:54] VITALS: BP 112/70
[2021-01-19 07:41] VITALS: BP 117/74
[2021-01-19 08:58] LABS: HEMATOCRIT 33.6 % (42.0-52.0); HEMOGLOBIN 11.3 gm/dL (14.0-18.0); MCH 27.2 pg (26.0-34.0); MCHC 33.7 g/dL (28.0-37.0); MCV 80.7 fL (80.0-100.0); RBC 4.16 mil/uL (4.50-6.00); RDW 19.2 % (10.5-14.5); WBC 9.4 thou/uL (4.0-11.0)
[2021-01-19 09:10] LABS: CALCIUM 8.6 mg/dL (8.5-10.1); CREATININE 10.3 mg/dL (0.7-1.3); MAGNESIUM 1.7 mg/dL (1.8-2.4); POTASSIUM 5.3 mmol/L (3.5-5.1)
--- NOTE | 2021-01-19 09:39 | EKG ---
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 : 1955 Requested By: Mike Ma Order Number: [id number] MD: Theo Fernández Measurements Intervals Eckley Rate: 90 P: 72 MA: 167 QRS: 49 QRSD: 78 T: 44 QT: 338 QTc: 414 Interpretive Statements Sinus rhythm Nonspecific T wave abnormality Compared to ECG 05/22/2019 18:29:02 Sinus tachycardia no longer present Left anterior fascicular block no longer present T wave abnormality is less pronounced Electronically Signed On 01-19-2021 9:38:54 CDT by Theo Fernández [email or web address] <ELECTRONICALLY SIGNED> By: Theo Fenrández MD, [facility] 01/19/21 0938 1504 1504 Theo Fernández MD, [facility] /EPI
[2021-01-19] MEDS ORDERED: IRBESARTAN300 MG PO (14:59)
[2021-01-19] MEDS ORDERED: OXYCODONE HCL10 MG PO (14:59)
[2021-01-19] MEDS ORDERED: PROTONIX40 M2 PO (14:59)
[2021-01-19] MEDS ORDERED: PHOSPHA 250 NE250 MG PO (15:01)
[2021-01-19] MEDS ORDERED: AAA-MED REC COMPLETE PO (15:03)
--- NOTE | 2021-01-19 15:28 | NUR ---
PT RESTING COMFORTABLY. MRI OF HEAD TODAY, PSYCH CONSULT, AND DIALYSIS AT BEDSIDE. PT AFEBRILE, ANEURIC, NO BM, APPROPRIATE APPETITE. AV FISTULA FUNCTIONING WELL. ABNORMAL LABS WERE REPORTED TO PROVIDER, NO NEW ORDERS OF NOW. PT AND FAMILY HAVE BEEN THOUROUGHLY UPDATED AND EDUCATED ON PT CONDITION AND POC. PT SLOWLY PROGRESSING TOWARDS POC.
--- NOTE | 2021-01-19 15:55 | NUR ---
SW completed assessment w/ pt spouse Kathya Pt AMS and currently confused NOK: Spouse Kathya [phone] DPOA: None - Spouse to make decisions Insurance: Medicare [place] PCP: Bakari Rojas Pt lives in 2 level home w/ spouse and 1 full flight inside. Pt primarily uses main level ADLs: Independent, was driving but no longer after acute stay DME: [facility]/SNF/REHAB/LTAC/DIALYSIS/HOSPICE Hx: Pt has had acute rehab a few years ago but only stayed for 2 days and left. Pt currently receives dialysis MWF at 1500 at [facility] COVID Vaccine: Pfizer / 6 mos ago Social barrier: AMS/confused Transport: W/C van vs family vehicle Pt spouse is agreeable to acute rehab for pt. [facility] liasion to place consult on this day. Anticipated D/C 01/23. W/U in progress
[2021-01-19 15:57] VITALS: BP 153/61
[2021-01-19 19:12] VITALS: BP 100/67
[2021-01-20 00:55] VITALS: BP 122/77
[2021-01-20 03:35] LABS: HEMOGLOBIN 11.9 gm/dL (14.0-18.0); MCV 81.7 fL (80.0-100.0); RBC 4.41 mil/uL (4.50-6.00); RDW 19.7 % (10.5-14.5); WBC 11.3 thou/uL (4.0-11.0)
[2021-01-20 04:09] LABS: CALCIUM 9.2 mg/dL (8.5-10.1); MAGNESIUM 1.9 mg/dL (1.8-2.4); POTASSIUM 5.9 mmol/L (3.5-5.1)
[2021-01-20 04:30] VITALS: BP 137/72
[2021-01-20 04:40] VITALS: BP 134/84
[2021-01-20 07:15] VITALS: BP 134/84
--- NOTE | 2021-01-20 07:46 | NUR ---
ASSUMED CARE OF PT AT 1900, PT IS ALERT TO SELF AND ABLE TO ANSWER YES/ NO QUESTIONS. PT IS SOMULENT AT THIS TIME. DENIES PAIN, ASSESSMENT COMPLETED NOTED. WILL CONTINUE TO WORK TOWARDS PT'S POC.
--- NOTE | 2021-01-20 10:57 | NUR ---
[facility] acute rehab has accepted. Pt is not medically stable to transition at this time do to consistent confusion and monitoring. Pt has Medicare and does not require auth prior to transition. CM following for D/C planning needs
--- NOTE | 2021-01-20 15:17 | NUR ---
PATIENT SEEN BY YOJANA NARVAEZ NP [facility] DR. JACKSON, THIS DATE AND IS A CANDIDATE FOR ACUTE REHAB. PER D/C CLAIMS CUSTOMER SERVICE REPRESENTATIVE PATIENT WILL BE IN HOSPITAL THROUGH WEEKEND. PATIENT WILL LIKELY HAVE A LUMBAR PUNCTURE PRIOR TO DISCHARGING FROM ACUTE. ANTICIPATE ADMISSION TO REHAB EARLY NEXT WEEK (01/23 OR 01/24). THANK YOU FOR THIS REFERRAL
[2021-01-20 16:15] VITALS: BP 96/64
--- NOTE | 2021-01-20 20:02 | NUR ---
ASSUMED CARE SHIFT CHANGE. VSS BP LOW OCCASIONALLY. STOOL SAMPLE SENT AWAITING RESULTS. PT SOMNOLENT UPON AM ASSESSMENT. PT BECAME MORE ALERT THROUGHOUT DAY. SPOUSE VISITED, UPDATED ON POC. DIALYSIS THIS SHIFT, BP LOW POST HD, PT BECAME SOMNOLENT, AROUSING EASILY. APPETITE INADEQUATE. PLAN FOR POSSIBLE LUMBAR PUNCTURE SATURDAY. CONT POC. REPORT PASSED TO ALESSANDRA STEVENSON.
[2021-01-20 21:40] VITALS: BP 77/52
--- NOTE | 2021-01-21 04:22 | NUR ---
ASSUMED CARE OF PT AT 1900, ASSESSMENT COMPLETED NOTED. PT A/O X 3 AND DROWSY. PT C/O PAIN, MEDICATION GIVEN AND RELIEF NOTED.WILL CONTINUE TO WORK TOWARDS PT'S POC.
[2021-01-21 05:08] LABS: HIV ANTIBODY Non Reactive (Non Reactive)
[2021-01-21 06:11] VITALS: BP 80/60
[2021-01-21 06:30] VITALS: BP 103/66
[2021-01-21 08:13] VITALS: BP 88/55
--- NOTE | 2021-01-21 09:16 | HC ---
[facility] [place] [address] CONSULTATION Name: DONI COTA Room #: [facility]- ADM IN M.R.#: [id number] Admission: 01/18/21 Attend Phys: Clifton Obando MD Discharge: Date of : 51 Report #: [id number] THIS REPORT FOR: cc: Bakari Gordon MD, Stany A. MD Barry, Joseph W. MD ~ DATE OF SERVICE: 01/20/2021 INFECTIOUS DISEASE CONSULTATION ATTENDING PHYSICIAN: Dr. Obando. REASON FOR EVALUATION: Marked encephalopathy, evaluation of possible infectious causes. HISTORY OF PRESENT ILLNESS: The patient examined. This is a 65-year-old man who has a longstanding history of end-stage renal disease, on dialysis, who apparently over the course of the last 2 weeks become quite encephalopathic, some involuntary movements as well, seemed to be fairly functional. He got confused driving home from dialysis to his home and was found in [place], apparently had a fall and struck his knees. He complained of that. It is not clear that he has had any fevers, some degree of poor p.o. intake. History was obtained from his spouse who is at his bedside. She notes there is significant memory deficits. He had not complained of headaches nor stiff neck. Initial evaluation, lactic acid was 1.2. CT of the head showed some cerebral atrophy without acute process. Chest x-ray showed no acute cardiopulmonary process. Does have a . MRIs were otherwise unrevealing as well. Blood cultures collected at time of admission are sterile thus far. ALLERGIES: None known. MEDICATIONS: Include lidocaine, acetaminophen, hydrocodone as needed. PAST MEDICAL HISTORY: As described above, end-stage renal disease, on dialysis; hypertension; depression, iron deficiency anemia. SOCIAL HISTORY: Longtime smoker. No illicit drug use. No ethanol. FAMILY HISTORY: Noncontributory. REVIEW OF SYSTEMS: Otherwise, unremarkable, not obtainable factor. PHYSICAL EXAMINATION: GENERAL: He appears chronically ill and undernourished. He does arouse briefly. Most of his speech is nonsensical, seems to deny headache or stiff neck at this point. He does complain of having soiled his perineal site with some [address] [address] CONSULTATION Name: DONI COTA Room #: [address] [place] [address] [place] ..#: [id number] Admission: 01/18/21 Attend Phys: Clifton Obando MD Discharge: Date of : 51 Report #: [id number] liquid stool. He is currently on dialysis. VITAL SIGNS: Temperature 98.1, he does have a temperature 102.5 overnight, pulse 108, respirations 18, blood pressure is 134/84. SKIN: Warm, dry, no rashes. HEENT: Normocephalic. Extraocular muscles intact. NECK: Appears to be supple. LUNGS: Diminished breath sounds. HEART: Tachycardic, regular. I do not appreciate a murmur. ABDOMEN: Soft. No peritoneal signs. GENITOURINARY AND RECTAL: Deferred. LABORATORY DATA: Blood cultures collected on the are sterile thus far. Electrolytes: Sodium 134, potassium 5.9, chloride 95, bicarbonate 27, anion gap of 12, BUN and creatinine 30 and 7.0. CBC: White count 11.3, H and H is and 36.0, platelets of 342. Imaging was otherwise nothing for acute. ASSESSMENT AND PLAN: Encephalopathy of unclear etiology. Certainly at risk for infectious complications. It is not entirely clear. I do not see of pyogenic focus at this point, had a discussion with spouse, apparently had a previous lumbar puncture that was not a good experience for him. After discussing with her, I do not think he can give informed consent. She is willing to proceed that even a normal test was helpful. We will additionally repeat blood cultures. Empirically treat with antibacterials. He remains quite tenuous at this point, we will send stool studies. <ELECTRONICALLY SIGNED> By: Edilberto Cha MD 01/21/21 0916 [id number] Edilberto Cha MD /nt
[2021-01-21 15:11] VITALS: BP 109/68
[2021-01-21 17:06] LABS: ANA INTERPRETATION Positive (Negative)
--- NOTE | 2021-01-21 17:36 | NUR ---
ASSUMED PATIENT CARE AT 0700. A/0 X2. GENERLIZED WEAKNESS. VOMIT. C/O ABD PAIN. CONFUSED. VSS. NOT TOWARDS POC GOALS.
[2021-01-21 20:03] VITALS: BP 134/78
[2021-01-22 03:51] VITALS: BP 149/96
[2021-01-22 07:40] VITALS: BP 149/93
--- NOTE | 2021-01-22 07:40 | NUR ---
ASSUMED CARE OF PT AT 1900, PT A/OX 3. ASSESSMENT COMPLETED NOTED. PT HAS HAD DECREASED APPETITE X 3 DAYS, AND HAS HAD MINIMAL INTAKE OF WATER. PT HAS HAD INCREASED HR IN THE 120'S, PHYSICIAN MADE AWARE OF CHANGES. PT DENIES CP OR DIZZINESS. WILL CONTINUE TO WORK TOWARD POC.
[2021-01-22 15:49] VITALS: BP 110/80
--- NOTE | 2021-01-22 18:18 | NUR ---
ASSESSMENT CHARTED - MEDS ASPER MAR - PT WITH VERY POOR PO INTAKE - PT DOES NOT APPEAR TO SWALLOW FLUIDS POCKETS IN MOUTH AND THEN SPITS OUT. SPEECH THERAPY CONSULT FOR TOMORROW. PT HAS BEEN RESTING IN BED - VERY SLEEPY TODAY - WHEN AWAKE CONFUSED AND UNCO-OPERATIVE AT TIMES. INCONTINENT OF STOOL THIS EVENING LARGE AMOUNT. NO CO'S OF PAIN OR NAUSEA. HR CAN BE ELEVATED AT TIME IN THE LOW 120'S USUALLY SITS IN THE 100'S TO LOW 110'S. NO CO'A AT THE PRESENT TIME. APPEARS TO BE RESTING COMFORTABLY.
[2021-01-22 19:48] VITALS: BP 151/85
[2021-01-23 04:39] LABS: HEMOGLOBIN 12.1 gm/dL (14.0-18.0); MCHC 31.9 g/dL (28.0-37.0); MCV 81.4 fL (80.0-100.0); RBC 4.67 mil/uL (4.50-6.00); RDW 19.6 % (10.5-14.5); WBC 12.7 thou/uL (4.0-11.0)
[2021-01-23 04:50] LABS: APTT 30.5 Seconds (24.5-32.8); INR 1.3
[2021-01-23 04:54] LABS: ALBUMIN 2.5 g/dL (3.4-5.0); CALCIUM 9.6 mg/dL (8.5-10.1); CREATININE 9.6 mg/dL (0.7-1.3); PHOSPHORUS 5.5 mg/dL (2.5-4.9); POTASSIUM 5.6 mmol/L (3.5-5.1)
[2021-01-23 05:36] VITALS: BP 148/92
--- NOTE | 2021-01-23 06:05 | NUR ---
PT IS ORIENTED TO PERSON AND KNOWS HE IS IN THE HOSPITAL. HE IS OTHERWISE CONFUSED AND VERY FORGETFUL. PT CAN BE IMPULSIVE AND PARANOID AT TIMES. REORIENTATION AND FREQUENT REMINDERS PROVIDED THROUGHOUT THE SHIFT. HE C/O GENERALIZED PAIN DURING THE NIGHT. PRN HYDROCODONE GIVEN. EARLY THIS MORNING, PT C/O ABDOMINAL DISCOMFORT, NAUSEA, AND ACID REFLUX. ZOFRAN GIVEN WITH PARTIAL RELIEF. VSS. AFEBRILE. FALL PRECAUTIONS REMAIN IN PLACE. IV ABX ADMINISTERED ORDERED. NOT PROGRESSING WELL TOWARD POC GOALS. WILL GIVE REPORT TO ONCOMING NURSE.
[2021-01-23 12:06] LABS: VITAMIN B6 (PYRIDOXAL 5-PHOS) 7.3 ug/L (5.3-46.7)
[2021-01-23 12:30] VITALS: BP 136/84
[2021-01-23 16:15] LABS: VOLUME 9.5 ml
[2021-01-23 16:22] LABS: CSF GLUCOSE 59 mg/dL (40-70); CSF PROTEIN 44 mg/dL (15-45)
[2021-01-23 16:37] LABS: CSF RBC 17 /mm3; CSF WBC 5 /mm3 (0-10)
[2021-01-23 17:10] VITALS: BP 155/99
[2021-01-23 18:06] LABS: GLOBULIN TOTAL 6.5 g/dL (2.2-3.9); M-SPIKE Not Observed g/dL (Not Observed)
--- NOTE | 2021-01-23 18:56 | NUR ---
RECEIVED THE PATIENT CONSICOUS AND ORIENTED TO SELF, SOMETIMES CONFUSED.ON ROOM AIR BREATHING SPONTANEOUSLY.NOT IN DISTRESS.HAD HEMODIALYSIS IN THE [facility].CALLED THE TO SECURE THE CONSENT FOR LP AND SHE CALLED BACK TO GIVE THE CONSENT OVER THE PHONE.LP DONE AND KEPT PATIENT ON SUPINE POSITION FOR 2HOURS AFTER PROCEDURE.ALL NEEDS ATTENDED.
[2021-01-23 20:01] VITALS: BP 146/94
[2021-01-23 23:06] LABS: SYPHILIS AB Non Reactive (Non Reactive)
--- NOTE | 2021-01-24 04:17 | NUR ---
Patient making slow progress towards outcome goals. Confused bordering agitaion. Wants to go home and refuses to let spouse leave. Adamant that he will go home after antibiotics infused. Orders received for one time Haldol. Calmed down and got some sleep after Haldol. High fall risks, fall precautions in place. Vital signs and rhythm stable. Diarrhea liquid, dark brown.
[2021-01-24 05:33] VITALS: BP 145/72
[2021-01-24 08:49] VITALS: BP 100/76
[2021-01-24 09:36] LABS: HEMATOCRIT 35.7 % (42.0-52.0); HEMOGLOBIN 11.7 gm/dL (14.0-18.0); MCH 26.8 pg (26.0-34.0); MCHC 32.6 g/dL (28.0-37.0); RBC 4.36 mil/uL (4.50-6.00); RDW 19.6 % (10.5-14.5); WBC 10.4 thou/uL (4.0-11.0)
[2021-01-24 16:15] VITALS: BP 131/78
--- NOTE | 2021-01-24 17:07 | NUR ---
PT UP TO BEDSIDE ARMANDO WILKES AND TOOK IN PO WELL. PT STILL LARGELY CONFUSED AND GETS DISORIENTED WHEN SUN GOES DOWN. PLAN FOR DIALYSIS IN THE AM. WILL CONTINUE TO ASSESS.
[2021-01-24 20:15] VITALS: BP 143/82
[2021-01-25 04:45] VITALS: BP 150/83
--- NOTE | 2021-01-25 07:57 | NUR ---
ASSESSMENT CHARTED, VSS, PLAN FOR DIALYSIS THIS AM, C/O PAIN AND STOMACH UPSET PRN MEDS GIVEN NEEDED, UP TO BSC WITH ASSIST OF ONE, REPORT GIVEN TO NEXT SHIFT TO CON'T PPOC.
[2021-01-25 08:25] VITALS: BP 151/99
--- NOTE | 2021-01-25 14:07 | NUR ---
Patient accepted to [facility] acute rehab. Plan dc today. Sp with and alerted of discharge to [facility] today.
[2021-01-25] MEDS ORDERED: LEVOFLOXACIN750 MG PO (18:19)
[2021-01-25] MEDS ORDERED: METRONIDAZOLE500 M4 PO (18:19)
== END 2021-01-25 18:11 | DRG 193 ==
LOC: ER 14:42 → 2N 16:50 → EROBS 16:50 → 2N 01-19 00:19
PROVIDERS: Emergency Medicine; Hospitalist; Internal Medicine Nephrology; Psychiatry & Neurology Neuromuscular Medicine; Specialist; ADMIT Internal Medicine; ATTEND Internal Medicine
DX: J18.9 Pneumonia, unspecified organism (principal); N18.6 End stage renal disease; E43 Unspecified severe protein-calorie malnutrition; G92 Toxic encephalopathy; I12.0 Hypertensive chronic kidney disease with stage 5 chronic kidney disease or end stage renal disease; K52.9 Noninfective gastroenteritis and colitis, unspecified; F32.9 Major depressive disorder, single episode, unspecified; G47.00 Insomnia, unspecified; H91.92 Unspecified hearing loss, left ear; G93.2 Benign intracranial hypertension; E78.5 Hyperlipidemia, unspecified; K21.9 Gastro-esophageal reflux disease without esophagitis; D64.9 Anemia, unspecified; R63.4 Abnormal weight loss; R25.2 Cramp and spasm; D72.829 Elevated white blood cell count, unspecified; I95.9 Hypotension, unspecified; R13.10 Dysphagia, unspecified; F17.210 Nicotine dependence, cigarettes, uncomplicated; Z68.21 Body mass index [BMI] 21.0-21.9, adult; Z79.899 Other long term (current) drug therapy; Z20.822 Contact with and (suspected) exposure to COVID-19
CPT/HCPCS: 10081; 32100

== ENCOUNTER 2021-01-25 11:44 | Inpatient (IN) | payer OTHER ==
[~2021-01-25] VITALS: Ht 193 cm; Wt 76.7 kg
[~2021-01-25 11:44] MED LIST changes: +AAA-MED REC COMPLETE PO; +HYDRALAZINE HC100 MG PO; +IRBESARTAN300 MG PO; +MEGESTROL ACETA40 MG PO; +OXYCODONE HCL10 MG PO; +PHOSPHA 250 NE250 MG PO; +PROTONIX40 M2 PO
[2021-01-25] MEDS ORDERED: METRONIDAZOLE500 M4 PO (18:19)
[2021-01-25] MEDS ORDERED: LEVOFLOXACIN750 MG PO (18:19)
[2021-01-25 19:51] VITALS: BP 121/81
--- NOTE | 2021-01-26 03:28 | NUR ---
TO REHAB APPROX 1800, PAIN MED GIVEN LATE HS AFTER ASKED FOR A FEW HOURS EARLIER. UP TO BSC FOR LOOSE GREEN STOOL, THEN MOD AMOUNT YELLOW EMESIS SUDDENLY. COARSE LUNG SOUNDS AFTERWARDS. SMALL AMOUNT STOOL NOW INCONTINENTLY. CLEANED AND USED MOISTURE BARRIER AT THIS TIME.
[2021-01-26 06:08] LABS: HEMOGLOBIN 10.9 gm/dL (14.0-18.0); MCV 81.8 fL (80.0-100.0); RBC 4.03 mil/uL (4.50-6.00); RDW 19.7 % (10.5-14.5); WBC 8.8 thou/uL (4.0-11.0)
[2021-01-26 06:25] LABS: ALBUMIN 2.4 g/dL (3.4-5.0); CALCIUM 9.3 mg/dL (8.5-10.1); CREATININE 6.4 mg/dL (0.7-1.3); PHOSPHORUS 4.4 mg/dL (2.5-4.9); POTASSIUM 4.6 mmol/L (3.5-5.1)
[2021-01-26 08:50] VITALS: BP 105/77
--- NOTE | 2021-01-26 12:13 | NUR ---
cm s/w pt to completed rehab assessment. pt lives home with his , jose. pt indicated he drives a vehicle and is independent with adls. pt is [place] in left ear. pt use cane. pt denies hx with hh or snf. pt has 12 stairs up from garage and 12/13 stairs up to bedroom. pt's pcp is dr Shah.
--- NOTE | 2021-01-26 18:00 | NUR ---
PT REFUSED THERAPY SESSION WITH P.T. THIS AFTERNOON, THEN AROUND 1600 REQUESTED TO BE DRESSED AND WALKED. NM EXPLAINED TO HIM THAT THE STAFF THAT WERE TO ASSESS HIS SAFETY WITH AMBULATION HAVE GONE HOME FOR THE DAY, AND PT'S ARRIVED TO THE UNIT TO VISIT. PT MEDICATED TWICE FOR PAIN WITH GOOD RESULTS, BUT REQUESTING PAIN MEDS WITHIN A COUPLE OF HOURS OF ADMINISTRATION FOR C/O "HURTING ALL OVER." PT CALM AND NOT IMPULSIVE, VERY [place] AND DOESN'T RECALL PREVIOUS INTERACTIONS FROM THE MORNING.
[2021-01-26 19:58] VITALS: BP 88/59
--- NOTE | 2021-01-27 02:44 | NUR ---
APPRECIATES PAIN MED FOR "ALL OVER" PAIN. RESTING, REMINDS US OF HIS ANNA MARIE FISTULA. LIKES HIS PILLS WHOLE AND APPRECIATES STRAWBERRY YOGURT TO HID THE TASTE (ESPECIALLY WITH FLAGYL) ALTHOUGH HE WOULD PREFER CHOCOLATE ANYTHING IF WE HAD IT. NOT EATING OR DRINKING MUCH TONIGHT DESPITE ENCOURAGEMENT.
--- NOTE | 2021-01-27 13:54 | NUR ---
Will cont. dcp as needed for discharge. Will cont. to discuss during weekly team meeting.
--- NOTE | 2021-01-27 13:55 | NUR ---
Will cont. dcp as needed for discharge. Will cont. to discuss during weekly team meeting.
--- NOTE | 2021-01-27 14:35 | NUR ---
ASSUMED CARE AT 0700. PATIENT IS ALERT AND ORIENTED TO PERSON ONLY. PATIENT IS VERY SAULT STE[place] MARIE. PATIENT TAPIA. UP IN THE W/C WITH P.T. LUNGS ARE CLEAR AND DEMINISHED. ABD IS SOFT WITH BSX4. PATIENT IS HEMODIALYSIS PATIENT. PATIENT HAS LEFT UPPER ARM FISTULA ACCESS FOR DIALYSIS. PATIENT IS NON COMPLIANT WITH MEDS, AND THERAPY. APPETITE IS POOR. FALL AND SAFETY PROTOCOLS IN PLACE. C/O BACK PAIN. MEDICATED WITH PRN PAIN MED. CONTINES TO PROGRESS VERY SLOWLY. WILL CONTINUE TO MONITER.
[2021-01-27 20:20] VITALS: BP 72/43
--- NOTE | 2021-01-28 04:14 | NUR ---
ASSUMED CARE APPROX 1900 EVENING 01/27. PT AWAKE AT CHANGE OF SHIFT SOMEWHAT RESTLESS, VERY HARD OF HEARING. PT UP TO BSC TO HAVE LOOSE BM. BP LOW HOWEVER PT ASYMPTOMATIC AND WIDE AWAKE BEFORE FALLING ASLEEP. PT SOUND ASLEEP UNTIL APPROX 0300 AND NOW AWAKE WATCHING TV. BED ALARM ON AND CALL LIGHT IN REACH. WILL CONTINUE TO MONITOR.
[2021-01-28 08:00] VITALS: BP 99/73
[2021-01-28 09:30] VITALS: BP 99/73
[2021-01-28 22:00] VITALS: BP 97/70
[2021-01-28 23:00] VITALS: BP 97/70
--- NOTE | 2021-01-29 02:14 | NUR ---
took hs meds into pt at bedtime and pt did not have any objections to taking meds. when pt was getting ready to swallow pills he stated " I'm not taking any of this stuff" pt refused to take any of his hs meds. pt very hard of hearing and expressing frustration about having to be in hospital. pt presently sleeping in bed and no further concerns or complaints at this time. bed alarm on and call light in reach. will continue to monitor.
--- NOTE | 2021-01-29 03:59 | NUR ---
pt had been sleeping fairly soundly and just now awoke agitated, inappropriate, fussy, irritable, verbally abusive to staff c/o being held against his will. pt offered meds as earlier at and refused with exception of taking ordered Gabapentin. pt up to bsc with no bm. pt now back to bed calm at present. bed alarm on and call light in reach. will continue to monitor.
[2021-01-29 07:15] VITALS: BP 114/68
[2021-01-29 10:00] VITALS: BP 114/68
--- NOTE | 2021-01-29 17:44 | NUR ---
ASSUMED CARE OF PT. AT 0700. PT RESTING QUIETLY IN BED WITH EYES CLOSED. PT WAS A LITTLE MORE COOPERATIVE TODAY. HE DID EAT 90 PERCENT OF HIS BREAKFAST. PT WALKED WITH P.T. TODAY. THIS NURSE TALKED IN DEPTH WITH PT ABOUT EATING AND WORKING WITH THERAPY. PT UP TO VISIT TODAY. SHE STATED THAT THEY HAVE 7 STEPS TO GET INTO THE MAIN LEVEL OF THE HOUSE WHICH PT STAYS ON. THEY HAVE GRAB BARS IN THE BATHROOM AND A SEAT THE PT SETS ON TO SHAVE AND BRUSH HIS TEETH. NO BATH BENCE, NO WHEELCHAIR. WILL CONTINUE TO MONITOR.
[2021-01-29 19:53] VITALS: BP 113/63
--- NOTE | 2021-01-30 04:35 | NUR ---
ASSUMED CARE AT 1900 OF 01/29. PATIENT IS A&O TO SELF, EXHIBITING CONFUSION AND FURSTRATION. PATIENT SEEMS TO FORGET THE INFORMATION THAT THIS NURSE TELLS HIM AND IS REQUIRING MULTIPLE ATTEMPTS AT EXPLAINING SCHEDULING OF MEDICATIONS. HARD OF HEARING. REPORTS GENERALIZED PAIN, MANAGED WITH PRN OXYCODONE AND SCHEDULED TYLENOL. PATIENT WAS COMPLIANT WITH ALL ORAL MEDS, AND TOOK THEM WHOLE WITH PUDDING TO REMOVE THE AFTER TASTE. PATIENT IS SLEEPING THROUGH THE NIGHT, CALL LIGHT WITHIN REACH, WILL CONITNUE TO MONITOR.
[2021-01-30 08:00] VITALS: BP 86/58
--- NOTE | 2021-01-30 16:50 | NUR ---
ASSUMED CARE AT 1020 THIS AM, AND PT HAS BEEN INTERMITTENTLY CONFUSED AND VERY [place]. 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 JACKSON WERE BOTH NOTIFIED. UPON FURTHER EXAMINATION, PT STATED HE WAS BLIND IN THE RIGHT EYE, BUT WAS ABLE TO FOLLOW/TRACK MY FINGER IN ALL 4 QUADRANTS WITH SMOOTH EYE MOTOR MOVEMENTS, AND PUPILS ARE EQUALLY REACTIVE. INITIALLY, IT WAS THOUGHT THAT DR. ORELLANA NEEDED TO BE CALLED, HOWEVER THIS IS NOT SEEMINLY ACUTE AN ISSUE, WILL REFRAIN FROM CALLING NEUROLOGY AT THIS TIME. FURTHER FINDINGS OF THE INCONSISTENCY WITH ASSESSMENT VS PT REPORT SUGGEST THAT PT'S DEMENTIA IS THE CAUSE OF SOME OF HIS CONERN.
[2021-01-30 19:36] VITALS: BP 121/82
--- NOTE | 2021-01-31 06:36 | NUR ---
01-30-21 CARE TRANSFERRED 1899. PT AAOX4, VSS, RR EVEN AND NONLABORED ON RA. PT REPORTS PAIN AND PRESENTS IRRITABLE OVER THE REDUCAION IN HIS PAIN MEDICATION, PT CONSENTLY RATES PAIN AT 9 ON 0-10 SCALE. PT HAS BEEN COOPERATIVE DURING CARES AND HAVE NOTED PT RESTING WITH EYES CLOSED UPON REASSESSMENT OF PAIN. PT WILL CONTINUE TO BE MONITOR PER [facility] PROTOCOL.
[2021-01-31 07:15] VITALS: BP 89/54
[2021-01-31 07:20] VITALS: BP 89/54
--- NOTE | 2021-01-31 13:42 | NUR ---
Team meeting, recommendation, mod to max for dressing. mod for transfers, poor sitting balance. Fww 60 ft with min assist. mod to min cognition and memory. Diff swallowing medication. he is chewing his medications. Has 7 steps to main level. Will need to continue outpt dialysis dc 02/10. Will need to jose can care for him and assist she can provide at home vs skilled rehab.
--- NOTE | 2021-01-31 15:45 | NUR ---
ASSUMED CARE OF PT AT 0700. OT WAS TRYING TO WAKE PT TO GET CLEANED UP. PT SLOW TO AWAKEN, TROUBLE SETTING HIMSELF UP IN BED. MAX ASSIST TO WHEELCHAIR. PT DID WAKE UP AND WORK WITHTHERAPY. PT WORKED WITH S.T. TOOK PILLS ONE AT A TIME WHOLE IN PUDDING. PT DOES NOT SWALLOW VERY WELL. BP LOW HOLDING COREG AND PAIN MEDS PER PARAMETERS. WILL CONTNIUE TO MONITOR.
[2021-01-31 19:58] VITALS: BP 111/72
--- NOTE | 2021-02-01 00:30 | NUR ---
ASSUMED CARE AT 1900 OF 01/31. PATIENT IS A&O TO SELF AND SITUATION. WAS RECEIVING DIALYSIS AT START OF SHIFT, PATIENT TOLERATED IT WELL. PATIENT'S WAS PRESENT START OF SHIFT WELL, AND REQUESTED TO SEE THIS NURSE TO INQUIRE ABOUT PATIENT'S PAIN MEDICATION. EDUCATION ABOUT RECENT LOW BP'S AND THE EFFECT OF OXYCODONE ON BP PROVIDED. EXPRESSED COMPREHENSION, BUT MENTIONED THAT THE PATIENT HAS BEEN TAKING 10MG OF OXYCODONE EVERY 4 HOURS AT HOME DUE TO AN OLD KNEE INJURY THAT HAS CAUSE CHRONIC PAIN. SHE SAID HE TORE SOMETHING IN HIS KNEE AND THEY DID NOT OPERATE ON IT, SO HE HAS HAD TO TAKE PAIN MEDS SINCE. SHE DOES NOT THINK THAT REDUCING HIS PAIN MEDS IS HELPING HIM FEEL MORE COMFORTABLE. PATIENT ALSO REPORTS GENERALIZED PAIN ALL OVER HIS BODY OFTEN AND REPORTS 5 MG EVERY 6 HOURS IS NOT MANAGING HIS PAIN APPROPRIATELY. PRN OXYCODONE AND SCHEDULED TYLENOL BOTH ADMINISTERED TO MANAGE PAIN. WILL CONTINUE TO MONITOR.
[2021-02-01 07:41] LABS: ABSOLUTE NEUTROPHILS 5.2 thou/uL (1.4-8.2); BASOPHILS 0.5 % (0.0-2.0); EOSINOPHILS 5.3 % (0.0-3.0); HEMATOCRIT 27.6 % (42.0-52.0); HEMOGLOBIN 8.9 gm/dL (14.0-18.0); LYMPHOCYTES 14.3 % (24.0-44.0); MCH 26.6 pg (26.0-34.0); MCHC 32.1 g/dL (28.0-37.0); MCV 82.6 fL (80.0-100.0); MONOCYTES 15.5 % (1.0-8.0); PLATELET COUNT 345 thou/uL (150-400); POLYS 64.4 % (36.0-66.0); RBC 3.34 mil/uL (4.50-6.00); RDW 19.9 % (10.5-14.5)
[2021-02-01 07:48] LABS: CALCIUM 7.6 mg/dL (8.5-10.1); CREATININE 7.3 mg/dL (0.7-1.3); MAGNESIUM 1.4 mg/dL (1.8-2.4); POTASSIUM 4.2 mmol/L (3.5-5.1)
[2021-02-01 08:00] VITALS: BP 134/84
[2021-02-01 09:36] LABS: ANISOCYTOSIS 1+; LARGE PLATELETS OCCASIONAL; POIKILOCYTOSIS SLIGHT
--- NOTE | 2021-02-01 13:27 | NUR ---
Nutrition: Calorie count results as follows: Day 1: Pt consumed 1070 kcals and 36 gm protein meeting 53% kcal needs, 38% protein needs. Day 2: pt consumed 1355 kcals and 59 gm protein meeting 67% kcal needs, 63% protein needs Pt drinking ensure well and po appears to have improved significantly with diet change to pureed. Continue present interventions.
--- NOTE | 2021-02-01 14:55 | NUR ---
left message for to call cm back.
[2021-02-01 18:56] VITALS: BP 120/75
--- NOTE | 2021-02-01 19:01 | NUR ---
PT WILLINGLY WORKED WITH THERAPIES TODAY. ATE MUCH BETTER TODAY. TOLERATING PUREE RENAL DIET. GAIT MORE STEADY TODAY. PT MORE COHERENT TODAY. PT OVERALL ATTITUDE IS BETTER. WILL CONTNIUE TO MONITOR.
[2021-02-01 19:28] VITALS: BP 129/79
--- NOTE | 2021-02-02 04:00 | NUR ---
ASSUMED CARE AT 1900 OF 02/01. PATIENT IS A&O TO PERSON AND SITUATION. REPORTS GENERALIZED PAIN ALL OVER HIS BODY, PRN OXYCODONE ADMINISTERED TO MANAGE PAIN. PATIENT TOLERATE ORAL MEDS CRUSHED IN PUDDING. PATIENT CONSETED TO HAVE SUPPOSITORRY ADMINISTERED AT HS, EDUCATION ABOUT SUPPOSITORY MEDICATION PROVIDED. PATIENT REPORTED THAT IT DOES HELP HIS HEMORRHOIDS FEEL BETTER. AM SHIFT NURSE FOUND A SKIN ABRAISION ON PATIENT'S UPPER BACK, SHE CLEANED AND COVERED IT WITH MEPILEX. THIS REMAINS IN PLACE AND INTACT DURING THIS SHIFT. WOUND CARE CONSULT ORDERED. PATIENT IS ENCOURAGED TO TURN TO SIDE WHEN SLEEPING, BUT HE REPORTS HAVING A PROBLEM GOING ONTO HIS LEFT BECAUSE OF THE HEMORRHOIDS. APPEARS TO BE SLEEPING DURING HOURLY ROUNDS. WILL CONTINUE TO MONITOR.
[2021-02-02 08:00] VITALS: BP 111/67
--- NOTE | 2021-02-02 11:52 | NUR ---
per callie gómez they can accept for skilled rehab on 02/10.
--- NOTE | 2021-02-02 12:59 | NUR ---
WOUND CARE CONSULT; THE THORACIC SPINE WAS ASSESSED FOR A WOUND. A SKIN TEAR WAS IDENTIFIED. THERE IS A FLAP LIKE SKIN WHICH i WAS ABLE TO REAPPROXIMATE TO ATTEMT TO GAIN ADHERENCE. NO S/S OF INFECTION. RECCOMMENDATION: -APPLY XEROFORM GAUZE, COVER WITH A BORDER FOAM, CHANGE M/W/F PRN. DISCUSSED WITH GRAHAM
[2021-02-02 14:53] VITALS: BP 138/77
[2021-02-02 20:00] VITALS: BP 121/78
--- NOTE | 2021-02-03 05:22 | NUR ---
ASSUMED CARE OF PT AT 1930 ON 02/02/21. PT IS A&OX3, IS FORGETFUL, & CAN BE IMPULSIVE AT TIMES. IS ON ROOM AIR. IS STABLE. DRSG TO UPPER, MID BACK C/D/I. PT REPORTS GENERALIZED PAIN THAT IS BEING MANAGED WITH ORAL PAIN MEDS & OTHER THERAPUETIC TECHNIQUES. IS UP WITH 1 ASSIST GB WALKER TO BSC. FALL PRECAUTIONS & HOURLY ROUNDING CONTINUED THIS SHIFT. PT IS ABLE TO TURN SELF IN BED. LABS & VITALS REVIEWED. CALL LIGHT WITHIN REACH. IS NEAR NURSE STATION. WILL CONTINUE TO MONITOR.
[2021-02-03 17:00] VITALS: BP 121/63
--- NOTE | 2021-02-03 18:00 | NUR ---
PT UP TO THERAPIES TODAY, AND HAD ONE LOOSE BM ON BSC. PT C/O PAIN AND AMXIETY THROUGHOUT THE DAY TODAY, AND WATCHED THE CLOCK REGARDING PAIN MEDICATIONS. GAIT REMAINS UNSTEADY, AND PT REMAINS IMPULSIVE, ARGUMENTATIVE, BUT REPORTS THAT HE "FEELS MUCH STRONGER NOW."
[2021-02-03 21:00] VITALS: BP 151/72
--- NOTE | 2021-02-04 02:35 | NUR ---
assumed care approx 1900 evening 02/03. pt visiting with spouse at bedside until approx 2100. after left pt fell asleep until approx 2200. woke up, meds given with pudding and pt became argumentative, demanding, fussy, irritable inappropriate and uncooperative. pt assisted to bathroom and back to bed with no voiding or bm. pt given snack and fell asleep approx midnight. bed alarm on and call light in reach. will continue to monitor.
[2021-02-04 07:46] VITALS: BP 143/73
--- NOTE | 2021-02-04 15:46 | NUR ---
ASSUMED CARE AT 0700. PATIENT IS ALERT AND ORIENTED X1. PATIENT IS VERY ANXIOUS AND ANGRY ABOUT HIS PAIN MED.S LUNGS ARE CLEAR AND DEMINISHED. ABD IS SOFT WITH BSX4. USES URINAL TO VOID. UP WITH P.T. TO CHAIR. PATIENT HAS DIALYSIS TODAY. DIALYSIS ACCESS HAS THRILL AND BRUIT. FALL AND SAFETY PROTOCOLS IN PLACE. PATIENT IS VERY IMPULSIVE TODAY. REDIRECTED TO SIT DOWN. DR. GEORGE HERE TO SEE PATIENT. CONTINUES TO C/O BACK PAIN. MEDICATED WITH PRN PAIN MED. CONTINUES TO PROGRESS VERY SLOWLY TOWARDS D/C GOALS. WILL CONTINUE TO MONITER.
[2021-02-04 20:59] VITALS: BP 130/79
--- NOTE | 2021-02-04 23:17 | NUR ---
PT ASSESSMENT COMPLETED AND VSS. MEDS GIVEN ORDERED AND WELL TOLERATED. FALL PRECAUTIONS IN PLACE. UP TO THE BSC WITH ASST/GAIT/WALKER. PT HAD A VERY LARGE SOFT BM. PT HAS BEEN HAVING TROUBLE SLEEPING AT NIGHT. TRAZADONE ORDERED AND HELPFUL. PAIN MEDICATION WORKING WELL. WILL CONTINUE TO MONITOR FREQUENTLY.
[2021-02-05 09:30] VITALS: BP 134/82
--- NOTE | 2021-02-05 14:21 | NUR ---
ASSUMED CARE OF PT AT 0700. PT IN BED A&OX4 BUT KEEPS ASKING THE SAME QUESTIONS HE ASKED THIS NURSE LAST WEEK. EXPLAINED MEDICATION REGIMAN TO PT. AGAIN. PT IS CALL LIGHT APPROPRIATE. WILL CONTINUE TO MONITOR.
[2021-02-05 19:20] VITALS: BP 117/64
--- NOTE | 2021-02-06 05:16 | NUR ---
ASSUMED CARE AT 1900 OF 02/05. PATIENT IS A&OX4, W/ INTERMITTENT FORGETFULNESS. PATIENT TOLERATED ORAL MEDICATIONS WHOLE IN PUDDING. CONTINUES TO REPORT GENERALIZED PAIN, WHICH IS MANAGED WITH PRN OXYCODONE. REPOSITIONING DONE WITH ASSISTANCE. PATIENT IS SLEEPING DURING HOURLY ROUNDS. FALL PRECAUTIONS IN PLACE, CALL LIGHT W/IN REACH. WILL CONITNUE TO MONITOR.
--- NOTE | 2021-02-06 14:05 | NUR ---
WOUND F/U; THE PATIENTS WOUND SHOWS IMPROVEMENT SINCE LAST ASSESSMENT. THE WOUND HAS NO S/S OF INFECTION. THE SKIN TEAR WAS NOT ABLE TO REMAIN VIABLE AND EASILLY SLOUGHED OFF WITH GAUZE. THE WOUND BED IS WNL AT THIS TIME. RECOMMENDATIONS; -XEROOFORM, BORDER FOAM CHANGE M/W/F PRN. DISCUSSED WITH GRAHAM
--- NOTE | 2021-02-06 14:56 | NUR ---
ASSUMED CARE AT 0700. PATIENT IS ALERT AND ORIENTED X1. PATIENT CONFUSED. PATIENT TAPIA'S, ENGRAVING PRESS OPERATOR ARE EQUAL. LUNGS ARE CLEAR AND DEMINISHED. ABD IS SOFT WITH BSXR. UP TO THE BSC TO HAVE LARGE BM. UP IN BED FOR MEALS. FALL AND SAFETY PROTOCOLS IN PLACE. C/O PAIN IN HIS LOWER BACK. MEDICATED WITH PRN PAIN MED. CONTINUES TO PROGRESS SLOWLY TOWARDS D/C GOALS. WILL CONTINUE TO MONITER.
[2021-02-06 19:31] VITALS: BP 133/83
--- NOTE | 2021-02-07 05:31 | NUR ---
ASSUMED CARE AT 1900 OF 02/06. A&O TO SELF AND SITUATION, W/ NOTED CONFUSION. REPORTS GENERALIZED PAIN, WHICH IS MANAGED WITH PRN OXYCODODNE. MODERATE ASSIT OF 1 WITH TRANSFERS TO [facility], USING GB AND WALKER. PATEITN REQUIRES MANY CUES DURING TRANSFER. PATIENT HAD TWO BMS. ASSISTED WITH REPOSITIONING IN BED. FALL PRECAUTIIONS IN PLACE, CALL LIGHT W/IN REACH, WILL CONTINUE TO MONITOR.
[2021-02-07 07:15] VITALS: BP 135/84
[2021-02-07 07:30] VITALS: BP 135/84
[2021-02-07 07:30] LABS: ABSOLUTE NEUTROPHILS 5.1 thou/uL (1.4-8.2); BASOPHILS 0.4 % (0.0-2.0); EOSINOPHILS 3.8 % (0.0-3.0); HEMATOCRIT 24.5 % (42.0-52.0); HEMOGLOBIN 8.1 gm/dL (14.0-18.0); LYMPHOCYTES 19.4 % (24.0-44.0); MCH 27.2 pg (26.0-34.0); MCHC 32.9 g/dL (28.0-37.0); MCV 82.8 fL (80.0-100.0); MONOCYTES 13.8 % (1.0-8.0); PLATELET COUNT 273 thou/uL (150-400); POLYS 62.6 % (36.0-66.0); RBC 2.96 mil/uL (4.50-6.00); RDW 20.4 % (10.5-14.5); WBC 8.2 thou/uL (4.0-11.0)
[2021-02-07 07:49] LABS: ALBUMIN 1.8 g/dL (3.4-5.0); CREATININE 7.8 mg/dL (0.7-1.3); MAGNESIUM 1.4 mg/dL (1.8-2.4); PHOSPHORUS 4.7 mg/dL (2.5-4.9)
[2021-02-07 07:52] LABS: POTASSIUM 7.8 mmol/L (3.5-5.1)
[2021-02-07 09:58] LABS: ANISOCYTOSIS 1+
[2021-02-07 09:59] LABS: OVALOCYTES FEW
--- NOTE | 2021-02-07 12:51 | NUR ---
Team meeting, recommendation: abnormal lab critical K+ 7.8, changed back on renal diet. no chocolate or lemon crow soda. poor insight. better with written information. skin tear on back on neck with tx ordered. pain. requiring more assist, r/t fatigued. mod- sever cognitive and memory. puree with thin liquid. Dc 02/10 to [facility].
--- NOTE | 2021-02-07 14:31 | NUR ---
ON-GOING ASSESSMENT: CM REVIEWED CHART. PLANS FOR ANTICIPATED DISCHARGE Saturday02/10/21 TO [facility]. CM FAXED UPDATED CLINICAL TO [facility] AND NOTIFIED [facility] IN ADMISSIONS. CM WILL CONTINUE TO FOLLOW TO ASSIST NEEDED.
--- NOTE | 2021-02-07 17:13 | NUR ---
ASSUMED CARE OF PATIENT AT 0700. PT CONFUSED ALERT TO SELF ONLY. PT BUE TWITCHING. PT K+ 7.8, NOTIFIED NEPHROLOGY ORDERS GIVEN. AFTER DIALYSIS PT. TWITCHING HAS SUBSIDED. PT MORE ALERT AND NOT WEEK. WILL CONTNIUE TO MONITOR.
[2021-02-07 19:50] VITALS: BP 156/91
[2021-02-07 19:57] LABS: CREATININE 5.2 mg/dL (0.7-1.3); POTASSIUM 5.9 mmol/L (3.5-5.1)
--- NOTE | 2021-02-08 03:22 | NUR ---
ASSUMED CARE AT 1900 OF 02/07. PATIENT IS A&O TO SELF ONLY, CONTINUES TO HAVE INTERMITTENT HALLUCINATIONS. REORIENTED TO PLACE AND SITUATION, APPEARS TO BE FURSTRATED ABOUT RESTRICTIONS ON DIET, AND NOT BEING ABLE TO DRINK [place] DRINK. PATIENT IS ENCOURAGED TO DRINK WATER. BMP RESULT CAME BACK DURING SHIFT, K+ HAS DECREASED TO 5.9. BUSINESS INSURANCE AGENT WAREHOUSE ORDER FILLER HAS BEEN PAGED THREE TIMES, NO CALL BACK OF YET. PATIENT VITAL SIGNS ARE STABLE, PATIENT WAS ABLE TO GET ONTO BSC WITH MODERATE ASSIST USING GB AND WALKER. WEAKNESS STILL NOTED, DECREASE TWITCHING. DENIES CHEST PAIN OR NAUSEA. SLEEPING DURING HOURLY ROUNDS. ASSISTED WITH TURNS IN BAD. CALL LIGHT W/IN REACH WILL CONTINUE TO MONITOR.
--- NOTE | 2021-02-08 13:37 | NUR ---
ASSUMED CARE AT 0700. PATIENT IS ALERT AND ORIENTED X1-2. PATIENT HAS LEFT UPPER ARM FISTULA. PATIENT LUNGS ARE DEMINISHED. ENCOURAGED I.S. ABD IS SOFT WITH BSX4. UP TO THE BATHROOM WITH ASSIST TO HAVE BM. PATIENT DRESSING TO HIS UPPER BACK CHANGED AND NEW OPTIFOAM APPLIED. Z-GUARD APPLIED TO HIS COCCYX. TO SMALL RED AREA. PATIENT REMAINS IMPULSIVE. S.L. IN HIS RIGHT ARM PATIENT AND INTACT. FALL AND SAFETY PROTOCOLS IN PLACE. C/O BACK AND KNEE PAIN. MEDICATED WITH PRN PAIN MAD AND PAIN GEL TO KNEES. CONTINUES TO PROGRESS TOWARDS D/C GOALS. WILL CONTINUE TO MONITER.
--- NOTE | 2021-02-08 15:26 | HC ---
[facility] [place] [address] CONSULTATION Name: DONI COTA Room #: 513-P ADM IN M.R.#: [id number] Admission: 01/25/21 Attend Phys: River Rosado MD Discharge: Date of : 51 Report #: [id number] THIS REPORT FOR: cc: Bakari Gordon MD, Stany A. MD Deutch,Usama Rosen. PhD ~ DATE OF SERVICE: 01/29/2021 NEUROBEHAVIORAL STATUS EXAM ATTENDING PHYSICIAN: River Rosado MD SALT MANAGER: Usama Jacobs, PhD CLINICAL PRESENTATION: The patient is a 65-year-old male admitted to the rehab unit at [facility] for a comprehensive inpatient rehabilitation program to improve functional mobility, activities of daily living and self-care, and mental status secondary to deficits from acute anoxic encephalopathy. The patient was admitted to the hospital on 01/18/2021 with altered mental status. His had filed a missing persons report as he did not return home upon a scheduled time. Apparently, the patient made a mistake in driving and ended up in [place]. He was towed back and brought to the Emergency Room. A CT scan and MRI of the head was negative. Neurology noted concern for pseudotumor cerebri. His medical problem list included acute anoxic encephalopathy, acute blood loss anemia, altered mental status, anticholinergic drug overdose, blurred vision, confusion, end-stage renal disease, fever, generalized weakness, GI bleed, hyperkalemia, hypertension, hypertensive urgency, hypomagnesemia, influenza, nausea and vomiting, papilledema, sepsis, somnolence, sprain of the jaw, transaminitis, and vertigo. His assessment on admission to the rehabilitation unit included an acute metabolic encephalopathy, medical complexity with generalized debility, possible pneumonia and enterocolitis, ESRD on HD with electrolyte abnormalities, left ear hearing loss, bilateral knee dislocations history, hypertension, possibly underlying dementia and severe PCM. A complete description of his medical condition and history can be found in his medical record. Neuropsychological consultation was requested to provide assistance in the assessment of cognitive and emotional status, and provide recommendations and services. Prior to this most recent admission, the patient is reported to have been living independently with his in their home. He had been driving and reportedly independent with activities of daily living. He has one brother and one sister. The patient reports having been a high school graduate with 2 years of college. 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 IN ..#: [id number] Admission: 01/25/21 Attend Phys: River Rosado MD Discharge: Date of : 51 Report #: [id number] mcfp. He has one child. The patient was angry with his during the interview and appears somewhat paranoid and mistrusting her actions. His insight into his deficits is poor as he externalizes blame for his actions. TECHNIQUES UTILIZED: Clinical interview, review of medical records, staff consultation and behavioral observation, mini mental status exam 2 standard version, verbal fluency assessment and clock drawing. EXAMINATION FINDINGS: The patient is alert and cooperative with the assessment. He accurately described aspects of his hospitalization, but was not able to accurately understand his current medical condition. Although, he reports periods of confusion and intermittent disorientation. He is not trusting his and also lacks insight into his need for hospitalization. He reports hearing different sounds in his ears, which sound more similar to tinnitus than verbal auditory hallucinations. The patient reports having had sustained a large weight loss. His symptoms include sleep disturbance, poor appetite, anxiety and depression. He has not reported a history of alcohol or drug abuse. Performance on the MMSE 2 brief version is extremely low with a raw score of 12 and percentile rank of 1. The patient was 3/3 for initial registration, 5/5 for orientation to time and 4/[address]. He was 0/3 for immediate recall of 3 items after a brief time delay and distraction. Performance was in the low average range on the standard version of the MMSE 2 with a raw score of 25 and 30. He was 5/5 for serial sevens, but had difficulty with hearing. He was 2/2 for naming, 1/1 for repetition, 3/3 for auditory comprehension. He could read and follow a single command and write a sentence. The patient did have difficulty with copying a simple geometric design. Letter fluency was in the average range and within normal limits. Category fluency was extremely low with a raw score of 18, T score of 20 and percentile rank of less than 1. Overall, total verbal fluency was a raw score of 39, T score of 32 and percentile rank of 4. The patient is presenting with deficits in verbal fluency often seen with executive dysfunction. Impaired immediate recall was also noted. DIAGNOSTIC IMPRESSION: Major neurocognitive disorder (dementia) with decreased insight -- extent to be determined, likely mild severity Unspecified anxiety disorder. [facility] [address] [place] [address] CONSULTATION Name: DONI COTA Room #: 513-P ADM IN M.R.#: [id number] Admission: 01/25/21 Attend Phys: River Rosado MD Discharge: Date of : 51 Report #: [id number] Patient may experience intermittent delirium RECOMMENDATIONS: The patient will benefit from a thorough neuropsychological assessment following discharge. He is presenting with deficits in immediate recall and executive functioning which are likely to interfere with his safety upon return home. A driving evaluation will also be necessary before he returns to independent driving. Continued speech therapy to assist with development of compensatory strategies for cognitive disorder. [place] and specific examples of the purpose of therapies along with educational information regarding his medical condition. His will also require educational information regarding his neurocognitive deficits and need for increased supervision. Thank you very much for allowing me to provide the consultation on this patient. <ELECTRONICALLY SIGNED> By: Usama Jacobs, PhD 02/08/21 1526 [id number] Usama Jacobs, PhD /nt
[2021-02-08 16:33] VITALS: BP 149/84
[2021-02-08 19:55] VITALS: BP 162/91
--- NOTE | 2021-02-09 00:45 | NUR ---
PT ASSESSMENT COMPLETED AND VSS. MEDS GIVEN ORDERED AND WELL TOLERATED. SUPPORTIVE AT BEDSIDE. SLEEPING AND PAIN MEDICATION HELPFUL. UP TO BSC 3 TIMES WITH ASST/GAIT/WALKER. PT HAD A SMALL BM AT HS. PT DENIES NEEDS. SLEEPING WELL AT THIS TIME. DIALYSIS ACCESS WNL AT HS. WILL CONTINUE TO MONITOR FREQUENTLY.
[2021-02-09 06:14] LABS: ABSOLUTE NEUTROPHILS 4.4 thou/uL (1.4-8.2); BASOPHILS 0.7 % (0.0-2.0); EOSINOPHILS 5.7 % (0.0-3.0); HEMATOCRIT 24.2 % (42.0-52.0); HEMOGLOBIN 7.9 gm/dL (14.0-18.0); LYMPHOCYTES 19.8 % (24.0-44.0); MCH 26.9 pg (26.0-34.0); MCHC 32.5 g/dL (28.0-37.0); MCV 82.9 fL (80.0-100.0); MONOCYTES 13.3 % (1.0-8.0); PLATELET COUNT 257 thou/uL (150-400); POLYS 60.5 % (36.0-66.0); RBC 2.92 mil/uL (4.50-6.00); RDW 20.2 % (10.5-14.5); WBC 7.3 thou/uL (4.0-11.0)
[2021-02-09 06:38] LABS: ALBUMIN 1.8 g/dL (3.4-5.0); CALCIUM 7.6 mg/dL (8.5-10.1); MAGNESIUM 1.4 mg/dL (1.8-2.4); PHOSPHORUS 5.7 mg/dL (2.5-4.9)
[2021-02-09 07:02] LABS: CREATININE 7.3 mg/dL (0.7-1.3)
[2021-02-09 07:03] LABS: POTASSIUM 7.3 mmol/L (3.5-5.1)
[2021-02-09 08:00] VITALS: BP 146/83
--- NOTE | 2021-02-09 11:38 | NUR ---
ASSUMED CARE OF PT AT 0700 THIS MORNING. CONTINUED ASSESSMENT AND MONITORING PT AND CHARTED FINDINGS. ASSESSMENTS OTHERWISE UNREMARKABLE. VSS, DIALYSIS IS WITH PT THIS MORNING. CH CALLED BY LAB, K+ AT 7.3, DR. SR CALLED AND NOTIFIED OF RESULTS. FALL PRECAUTIONS ARE IN PLACE, MEDS AND RX GIVEN NEEDED AND SCHEDULED. CALL LIGHT AND OTHER NEEDS ARE WITHIN REACH. WILL CONTINUE MONITORING PT AND NOTE ANY CHANGES.
--- NOTE | 2021-02-09 14:16 | NUR ---
Chart copy requested, 4w edda roper is helping with the chart copy. Cm sent updates on some of labs and cxr to [facility] so they can get his chair time for dialysis.
[2021-02-09 19:28] VITALS: BP 164/83
--- NOTE | 2021-02-10 00:14 | NUR ---
PT ASSESSMENT COMPLETED AND VSS. MEDS GIVEN ORDERED AND WELL TOLERATED. FALL PRECAUTIONS IN PLACE. PRN PAIN AND SLEEPING MEDICATION WORKING WELL. ASST WITH REPOSITION FOR COMFORT. PT REFUSED TO CHANGE INTO A GOWN AT HS. SLEEPING WELL AT THIS TIME. WILL CONTINUE TO MONITOR FREQUENTLY. LEFT UPPER ARM DIALYSIS ACCESS WNL.
[2021-02-10 08:00] VITALS: BP 149/66
[2021-02-10] MEDS ORDERED: OXYCODONE HCL 55 MG PO (08:02)
--- NOTE | 2021-02-10 08:24 | NUR ---
PT WANTING TO KNOW ABOUT BREAKFAST. SHOWED PT THE MENU AND HE STATED HE NEVER SEEN IT BEFORE. PT WANTING HOT CHOCOLATE TO DRINK. PT STATED HE DOESN'T DRINK MILK AND PT DIDN'T WANT THE CREAM OF WHEAT. PT STATED HE IS HUNGRY AND NEEDING TO EAT. PT HAS BILATERAL SOFT KNEE SUPPORTS DUE TO BUCKLING OF KNEES SINCE HE WAS YOUNG. PT STATED HE USED TO BE IN THE . PT UP WITH WALKER STAND-BY WITH STEADY GAIT.
--- NOTE | 2021-02-10 09:00 | NUR ---
labs ordered for dialysis still pending and covid is pending as well. will cont following, will need these labs for [facility] to take for skilled today.
[2021-02-10] MEDS ORDERED: [UNRECOGNIZED DRUG - OTHER] INJECTION (09:36)
[2021-02-10] MEDS ORDERED: TRAZODONE HCL50 MG PO (09:36)
[2021-02-10] MEDS ORDERED: COREG3.125 MG PO (09:36)
[2021-02-10] MEDS ORDERED: GABAPENTIN 100100 MG PO (09:36)
--- NOTE | 2021-02-10 09:55 | NUR ---
PT ASKING FOR PAIN MED. ADM OXYCODONE 10MG PO FOR PAIN TO KNEES OF 10 ON 1-10 SCALE. PT TOOK MEDS WITH PUDDING.
[2021-02-10] MEDS ORDERED: OXYCODONE HCL10 MG PO (10:52)
--- NOTE | 2021-02-10 14:20 | NUR ---
ADM OXYCODONE 10MG PO FOR PAIN TO KNEES. AT BEDSIDE. PT TOOK MEDS WITH PUDDING. PT STATED THAT THE DOSE WAS A BABY DOSE. PT UNDERSTANDS HE GETS X2 5MG TABS.
[2021-02-10 17:35] VITALS: BP 174/93
--- NOTE | 2021-02-10 18:15 | NUR ---
PT UP TO BATHROOM PRIOR TO DISCHARGE. PT ABLE TO WALK WITH WALKER STAND-BY ASSIST. ALL BELONGINGS ARE GIVEN TO PT. PT LEAVING VIA W/C TO [facility].
--- NOTE | 2021-02-10 18:29 | NUR ---
ADM OXYCODONE 10MG PO FOR PAIN TO KNEES. PT GETTING READY TO GO TO [facility]. GAVE REPORT TO NADIYA, CALLING NIKIA AT THIS TIME TO LET HER KNOW HE IS READY TO GO AND LEAVING.
[2021-02-11 02:06] LABS: HEP B SURFACE Ab(ANTI-HBS Reactive (()); HEPATITIS B SURFACE AG Negative (Negative)
--- NOTE | 2021-02-13 15:04 | PLAN ---
[facility] [place] [address] REHAB UNIT PLAN OF CARE Name: DONI COTA Room #: 513-P DIS IN M.R.#: [id number] Admission: 01/25/21 Attend Phys: River Rosado MD Discharge: 02/10/21 Date of : 51 Report #: [id number] THIS REPORT FOR: cc: Bakari Gordon MD, Stany A. MD Smithson,River Berry MD ~ DATE OF SERVICE: 01/28/2021 OVERALL PLAN OF CARE PLAN: The overall plan of care is based on the pre-admit screen and information garnered from therapy assessments. 1. Estimated length of stay is around 14 days. 2. Medical prognosis is reasonably good. 3. Anticipated interventions includes the interdisciplinary acute inpatient rehabilitation program. 4. Anticipated functional outcomes would be for the patient to improve as far as functional mobility and ADLs to try to hopefully achieve at least at a walker level of closer to his prior pain level. There is also to maximize independence from a cognitive communication perspective with speech therapy involved. 5. Discharge destination is back to the home setting where he lives at home with his in a multilevel house. 6. Expected therapy by discipline includes PT, OT and speech 1 hour per day each 5 days a week throughout the duration of the acute inpatient rehabilitation stay. Functionally, he has been min assist with basic transfers. ADDENDUM: The patient's prognosis for significant practical improvement within a reasonable period of time appears good. Given the patient's complex medical condition and risk of further medical complication, rehabilitation services cannot be safely provide at a lower level of care such as a senior living facility. The patient has multiple healthcare management consultant involvement including the hospitalist service as well as Nephrology, closely assisting with his end-stage renal disease. Family members are being asked to help with the patient and encouraging him to participate . <ELECTRONICALLY SIGNED> By: River Rosado MD 02/13/21 1504 [id number] River Rosado MD /nt
== END 2021-02-10 18:34 | DRG 91 ==
PROVIDERS: Nurse Practitioner; Nurse Practitioner Family; ADMIT Physical Medicine & Rehabilitation; ATTEND Physical Medicine & Rehabilitation
PROC: 5A1D70Z Performance of Urinary Filtration, Intermittent, Less than 6 Hours Per Day (ICD-10-PCS; principal; 2021-01-28)
PROC: 5A1D70Z Performance of Urinary Filtration, Intermittent, Less than 6 Hours Per Day (ICD-10-PCS; 2021-02-09)
DX: G92 Toxic encephalopathy (principal); N18.6 End stage renal disease; E43 Unspecified severe protein-calorie malnutrition; J18.9 Pneumonia, unspecified organism; I12.0 Hypertensive chronic kidney disease with stage 5 chronic kidney disease or end stage renal disease; E78.5 Hyperlipidemia, unspecified; K21.9 Gastro-esophageal reflux disease without esophagitis; Z20.822 Contact with and (suspected) exposure to COVID-19; H91.8X2 Other specified hearing loss, left ear; F03.90 Unspecified dementia, unspecified severity, without behavioral disturbance, psychotic disturbance, mood disturbance, and anxiety; F41.9 Anxiety disorder, unspecified; G47.00 Insomnia, unspecified; F32.9 Major depressive disorder, single episode, unspecified; F17.210 Nicotine dependence, cigarettes, uncomplicated; K52.9 Noninfective gastroenteritis and colitis, unspecified; I95.9 Hypotension, unspecified; R53.81 Other malaise; K64.9 Unspecified hemorrhoids; R13.10 Dysphagia, unspecified; G89.29 Other chronic pain; E87.5 Hyperkalemia; D64.9 Anemia, unspecified; F22 Delusional disorders; Z79.899 Other long term (current) drug therapy; Z79.82 Long term (current) use of aspirin; Z68.20 Body mass index [BMI] 20.0-20.9, adult; Z79.891 Long term (current) use of opiate analgesic; Z99.2 Dependence on renal dialysis
CPT/HCPCS: 10112; 32100

== ENCOUNTER 2021-02-16 00:35 | Inpatient (IN) | payer OTHER ==
[~2021-02-16] VITALS: Ht 193 cm; Wt 77.5 kg
--- NOTE | ~2021-02-16 | EMS ---
[facility] [address] [place] [address] EMS Patient Care Report Name: DONI COTA Room #: 215-P [facility] IN M.R.#: [id number] Admission: 02/16/21 Attend Phys: Luke Rayo MD Discharge: 02/20/21 Date of : 51 Report #: [id number] THIS REPORT FOR: //name// Report Transmitted: 02/21/2021 11:07 EMS Care Summary [place], [place]/[facility] Incident [id number] @ 02/16/2021 00:05 Incident Location [facility] KIM OLSEN G7 Patient DONI COTA Male, 65 Years 1955 Patient Address [address] [place] [id number] Patient History Other,Hypertension (HTN),Kidney/Renal Failure,Dialysis, Patient Allergies No known allergies, Patient Medications None Reported, Chief Complaint FEVER Disposition Transported No Lights/[place] Dispatch Reason Sick Person Transported To [facility] Narrative RESPONDED TO SICK AT LONG-TERM. UPON ARRIVAL PT FOUND SITTING IN CHAIR, ALERT AND ORIENTED. NC STAFF REPORT PT SATS HAVE BEEN LOW AND HE HAS A RATTLE- LIKE COUGH. PT DENIES SOA OR CP BUT MUCUS IN LUNGS COULD BE HEARD WHEN HE INHALES/EXHALES. PT FEELS VERY WARM TO THE TOUCH AND ORAL TEMP BY EMS WAS [address] [address] EMS Patient Care Report Name: DONI COTA Room #: 215-P DIS IN [facility].#: [id number] Admission: 02/16/21 Attend Phys: Luke Rayo MD Discharge: 02/20/21 Date of : 51 Report #: [id number] 100.7F. STAFF REPORT HE TESTED NEGATIVE EARLIER THIS MORNING FOR COVID. PT PIVOTS TO COT AND SEATBELTS APPLIED. VITALS OBTAINED AND PT PLACED ON O2 WITH IMPROVEMENT IN O2 SATS. PT TRANSPORTED TO [facility]. PT TEAM LIFTED TO BED AND HANDRAILS UP. REPORT GIVEN TO NURSE. Initial Vitals @00:28P: 109,SpO2: 94, @00:24P: 115,R: 18,BP: 168/93,Temp: 100.7F,SpO2: 88, @00:18P: 111,R: 18,BP: 168/89,Pain: 0/10,GCS: 15,Glucose: 73,SpO2: 86,Revised Trauma: 12, Assessments @00:18MENTAL:Time Oriented,Event Oriented,Person Oriented,Place Oriented,SKIN:Hot,HEENT:Head/Face: No Abnormalities,Eyes: No Abnormalities,Neck/Airway: No Abnormalities,LUNG SOUNDS:General: No Abnormalities,Left Upper: No Abnormalities,Right Upper: No Abnormalities,Left Lower: No Abnormalities,Right Lower: No Abnormalities,ABDOMEN:General: No Abnormalities,Left Upper: No Abnormalities,Right Upper: No Abnormalities,Left Lower: No Abnormalities,Right Lower: No Abnormalities,PELVIS//GI:No Abnormalities,EXTREMITIES:Left Leg: Weakness,Right Arm: Weakness,Left Arm: Weakness,Right Leg: Weakness,PULSE:Radial: 2+ Normal,NEURO:No Abnormalities, Impression COVID-19 - Suspected - no known exposure Procedures @00:18ALS AssessmentResponse: UnchangedSucceeded@00:23Oxygen FlowRate: 3 Device: Nasal Cannula (NC) Response: ImprovedSucceeded Timeline 00:03,Call Received 00:03,Dispatch Notified 00:05,Dispatched 00:06,En Route 00:12,On Scene 00:18,At Patient 00:18,BP: 168/89 M,PULSE: 111,RR: 18 R,SPO2: 86 Ox,ETCO2: ,B,PAIN: 0,GCS: 15, 00:18,ALS Assessment,Response: UnchangedSucceeded, 00:23,Oxygen FlowRate: 3 Device: Nasal Cannula (NC) Response: ImprovedSucceeded, 00:24,BP: 168/93 M,PULSE: 115,RR: 18 R,SPO2: 88 Ox,ETCO2: ,BG: ,PAIN: ,GCS: , 00:27,Depart Scene 00:28,BP: / M,PULSE: 109,RR: R,SPO2: 94 Ox,ETCO2: ,BG: ,PAIN: ,GCS: , 00:38,At Destination 00:39,Call Closed [facility] [address] [place] [address] EMS Patient Care Report Name: DONI COTA Room #: 215-P [facility] IN M.R.#: [id number] Admission: 02/16/21 Attend Phys: Luke Rayo MD Discharge: 02/20/21 Date of : 51 Report #: [id number] Disclaimer v1.1 Copyright 202 [employer] This EMS Care Summary contains data elements from the applicable legal record (which may be displayed differently). It is designed to provide pertinent information for the following purposes: continuity of care, clinical quality, and state data reporting. The complete legal record is available to ED staff and administrators of the receiving hospital in [employer]'s Patient Tracker. All data is provided "as is."
[~2021-02-16 00:35] MED LIST changes: +COREG3.125 MG PO; +GABAPENTIN 100100 MG PO; +LEVOFLOXACIN750 MG PO; +METRONIDAZOLE500 M4 PO; +OXYCODONE HCL 55 MG PO; +TRAZODONE HCL50 MG PO; +[UNRECOGNIZED DRUG - OTHER] INJECTION
[2021-02-16 00:36] VITALS: BP 185/105
[2021-02-16 01:33] LABS: BASOPHILS 0.3 % (0.0-2.0); EOSINOPHILS 2.1 % (0.0-3.0); HEMATOCRIT 23.3 % (42.0-52.0); HEMOGLOBIN 7.6 gm/dL (14.0-18.0); LYMPHOCYTES 10.7 % (24.0-44.0); MCH 27.4 pg (26.0-34.0); MCHC 32.5 g/dL (28.0-37.0); MCV 84.4 fL (80.0-100.0); MONOCYTES 14.3 % (1.0-8.0); PLATELET COUNT 220 thou/uL (150-400); POLYS 72.6 % (36.0-66.0); RBC 2.76 mil/uL (4.50-6.00); RDW 20.8 % (10.5-14.5); WBC 6.9 thou/uL (4.0-11.0)
[2021-02-16 01:43] LABS: CALCIUM 7.8 mg/dL (8.5-10.1); CREATININE 4.6 mg/dL (0.7-1.3); POTASSIUM 5.2 mmol/L (3.5-5.1)
[2021-02-16 01:49] LABS: ALBUMIN 2.1 g/dL (3.4-5.0); MAGNESIUM 1.5 mg/dL (1.8-2.4); TOTAL BILIRUBIN 0.6 mg/dL (0.2-1.0); TOTAL PROTEIN 7.7 g/dL (6.4-8.2)
--- NOTE | 2021-02-16 05:31 | NUR ---
STILL WAITING CT RESULTS.
--- NOTE | 2021-02-16 07:19 | EKG ---
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 : 1955 Requested By: Varghese Lagos Order Number: [id number] MD: Rolando Mckeon Measurements Intervals [place] Rate: 106 P: 51 [place]: 168 QRS: -55 QRSD: 85 T: 233 QT: 387 QTc: 514 Interpretive Statements Sinus tachycardia Left anterior fascicular block Left ventricular hypertrophy Anterior Q waves, possibly due to LVH Abnormal T, consider ischemia, diffuse leads Prolonged QT interval Baseline wander in lead(s) I,III,aVL Compared to ECG 01/18/2021 15:04:30 Left anterior fascicular block now present Left ventricular hypertrophy now present Electronically Signed On 02-16-2021 7:18:51 CDT by Rolando Mckeon [email or web address] <ELECTRONICALLY SIGNED> By: Rolando Mckeon MD, FACC 02/16/21 0718 5 5 Rolando Mckeon MD, [facility] /EPI
[2021-02-16 11:34] LABS: BE(vivo) 3.1 mmol/L (-2 to +3); PCO2 37.9 mmHg (35.0-45.0); sO2 92.2 % (92.0-98.0)
[2021-02-16] MEDS ORDERED: VITAMIN C500 M2 PO (13:01)
[2021-02-16] MEDS ORDERED: HEPARIN SO5000 UNIT/ SUBQ (13:10)
[2021-02-16] MEDS ORDERED: NEPHRO-VITE RX1 TA1 PO (13:26)
[2021-02-16] MEDS ORDERED: AMLODIPINE BESY10 MG PO (13:28)
[2021-02-16 15:41] VITALS: BP 164/108
[2021-02-16 16:15] VITALS: BP 164/108
--- NOTE | 2021-02-16 17:01 | NUR ---
65-year-old male presents to the ED on 02-16-21 with a past medical history of end-stage renal disease and was seen for hypoxia and fever. Patient is currently a patient at [facility] and was noted to have a fever at dialysis earlier today. Patient is Saturday dialysis patient. ID NOW in the ED on 02-15-21 is negative and per ED Triage nursing assessment obtained Pfizer vaccination on 08-29-20 and again on 10-13-20. NOTE: PCR testing on 02-16-21 is Negative. The patient has been admitted for Acute hypoxic respiratory failure - fluid overload - HTN urgency-ESRD - Anemia- Acute on chronic encephalopathy with recent admission for toxic encephalopathy- Chronic pain with chronic opiate dependence- HLD - and Left ear hearing loss. Orders of PT have been placed. CXR: Development of bilateral mild patch infiltrates with vascular congestion. Patient last seen and discharged from the hospital with Case Management services to [facility] on 02-10-21 from acute rehab . Kathya is listed as next of kin at [phone]. Attempted x2 without success to speak with Kathya to reintroduce role of CM. Anticipate as plan of care with medical team develops CM will follow with anticipated return to [facility] for SNF services. Also notified Yasmany Jones Liaison who will follow case with CM team.
--- NOTE | 2021-02-16 17:06 | NUR ---
PT AGITATED AND RESTLESS. NOT ALLOWING STAFF TO DO FULL ASSESSMENT. REFUSING CARE. PT ADMIT TO CCU APPROX 1635 FROM ED. PT ANEURIC, FEBRILE, POOR APPETITE, NO BM. HD TODAY IN ED. COVID NEGATIVE. DAIANA FISTULA WITH POSITIVE BRUIT AND THRILL. 6L NC. PT AND HAVE BEEN THOUROUGHLY UPDATED AND EDUCATED ON PT CONDITION AND POC. PT SLOWLY PROGRESSING TOWARDS POC.
[2021-02-16 19:33] VITALS: BP 163/99
--- NOTE | 2021-02-16 22:37 | NUR ---
PT SLEEPING IN UPRIGHT POSITION IN BED. PT OPENS EYES IN RESPONSE TO NURSE CONVERSATION BUT NO VERBAL RESPONSE BACK. PTS AT BEDSIDE. EDUCATED ON COMFORT CARE IF PT NO LONGER WISHES TO PARTICIPATE IN MEDICATIONS AND CARES. LUNGS COARSE O2 NC 6L. ANNA MARIE AV FISTULA INTACT. PT ANURIC. BED ALARM ON. MONITORING FSBS. NO PO MEDS ADMINISTERED. PROVIDER UPDATED.
[2021-02-17 00:03] VITALS: BP 166/96
[2021-02-17 02:27] LABS: ABSOLUTE NEUTROPHILS 5.1 thou/uL (1.4-8.2); BASOPHILS 0.1 % (0.0-2.0); HEMATOCRIT 22.9 % (42.0-52.0); HEMOGLOBIN 7.7 gm/dL (14.0-18.0); LYMPHOCYTES 5.3 % (24.0-44.0); MCH 28.4 pg (26.0-34.0); MCHC 33.5 g/dL (28.0-37.0); MCV 84.8 fL (80.0-100.0); MONOCYTES 2.1 % (1.0-8.0); PLATELET COUNT 172 thou/uL (150-400); POLYS 92.5 % (36.0-66.0); RDW 20.9 % (10.5-14.5); WBC 5.6 thou/uL (4.0-11.0)
[2021-02-17 02:47] LABS: CALCIUM 7.9 mg/dL (8.5-10.1); CREATININE 4.1 mg/dL (0.7-1.3); MAGNESIUM 1.9 mg/dL (1.8-2.4); PHOSPHORUS 4.6 mg/dL (2.5-4.9); POTASSIUM 4.9 mmol/L (3.5-5.1)
[2021-02-17 04:57] VITALS: BP 162/93
--- NOTE | 2021-02-17 05:57 | NUR ---
PT MORE ALERT THIS AM. ASKED IF IT WAS TIME FOR THE BAR TO CLOSE AND IFIT WAS TIME TO TAKE HIS GABADEWTON, PT PROVIDED AM GABAPENTIN. PT TOOK IN PUDDING.
[2021-02-17 08:05] VITALS: BP 134/93
--- NOTE | 2021-02-17 11:50 | NUR ---
Patient rec dialysis. Patient admits with SOA, fever. He had 2 negative COVID tests including PCR. Patient with recent dc from [facility] rehab unit 02/10 to [facility] for skilled care. Patient dializes with [facility] MW. Updated facility sent clinical information. Sp with plan return to [facility] once stable, IF DC OVER WEEKEND call Yasmany with [facility] [phone]. She will arrange transport. Fax orders obtain chart copy, call with timeframe
--- NOTE | 2021-02-17 14:25 | NUR ---
PT RESTING COMFORTABLY TODAY. HD THIS AM FROM APPROX [id number], 2L OFF PER HD RN. PT CONTINUES TO BE CONFUSED AND AGRESSIVE TOWARDS STAFF AND HIS . PT AFEBRILE, ANEURIC, NO BM, POOR APPETITE. STABLE ON 6L NC. DAIANA ARM FISTULA WITH POSITIVE BRUIT AND THRILL. PT AND AT BEDSIDE HAVE BEEN THOUROUGHLY UPDATED AND EDUCATED ON PT CONDITION AND POC. PT SLOWLY PROGRESSING TOWARDS POC.
[2021-02-17 17:00] VITALS: BP 152/80
[2021-02-17 19:41] VITALS: BP 149/87
[2021-02-18 03:07] LABS: HEMATOCRIT 21.7 % (42.0-52.0); HEMOGLOBIN 7.4 gm/dL (14.0-18.0); MCH 28.8 pg (26.0-34.0); MCV 84.6 fL (80.0-100.0); RBC 2.56 mil/uL (4.50-6.00); RDW 21.1 % (10.5-14.5); WBC 5.9 thou/uL (4.0-11.0)
[2021-02-18 03:17] LABS: CALCIUM 7.9 mg/dL (8.5-10.1); CREATININE 3.4 mg/dL (0.7-1.3); POTASSIUM 3.9 mmol/L (3.5-5.1)
[2021-02-18 03:58] VITALS: BP 164/91
--- NOTE | 2021-02-18 04:54 | NUR ---
Pt. has rested quietly at short intervals during the night when checked on during frequent rounds. He refused po meds. Pt. is confused. Bed alarm is on.
[2021-02-18 08:00] VITALS: BP 172/113
--- NOTE | 2021-02-18 09:09 | NUR ---
PT REFUSED PROTABLE CHEST XRY THIS AM. PT FREQUENTLY TALKING TO PEOPLE WHO ARE NOT IN ROOM. PT REMAINS CONFUSED. WILL CONTINUE TO ASSESS.
[2021-02-18 10:18] VITALS: BP 154/95
[2021-02-18 11:45] VITALS: BP 153/87
--- NOTE | 2021-02-18 14:34 | NUR ---
PT PULLED OF TELE AND PULLED OUT IV. HEAR BACK FROM DR. LOIS MYERS IF PT REFUSES CHEST XRY. WILL RESTAART IV WHEN PT IS MORE AGREEABLE. WILL CONTINUE TO ASSESS.
--- NOTE | 2021-02-18 18:36 | NUR ---
DR. DUBOIS INFORMED THAT PT IS REFUSING A NEW IV START AFTER HE PULLED HIS OUT TODAY.
[2021-02-18 19:58] VITALS: BP 165/105
[2021-02-19 03:30] VITALS: BP 175/104
[2021-02-19 03:33] LABS: HEMATOCRIT 22.8 % (42.0-52.0); HEMOGLOBIN 7.5 gm/dL (14.0-18.0); MCH 27.9 pg (26.0-34.0); MCV 84.7 fL (80.0-100.0); RBC 2.69 mil/uL (4.50-6.00); RDW 20.9 % (10.5-14.5); WBC 8.5 thou/uL (4.0-11.0)
--- NOTE | 2021-02-19 03:53 | NUR ---
Assumed pt care at 1900. Pt is alert and confused. No sign of distress noted. Pt is laying in bed. Fall precaution in place. Assessment completed and documented. Scheduled meds crushed and administered to pt. Pt verbalized pain. Pain med administered to pt. No acute events through the night. Continue to monitor. No further needs at this time.
[2021-02-19 05:51] LABS: CALCIUM 7.6 mg/dL (8.5-10.1)
[2021-02-19 06:02] LABS: CREATININE 5.1 mg/dL (0.7-1.3)
[2021-02-19 07:58] VITALS: BP 170/92
[2021-02-19 11:35] VITALS: BP 157/79
[2021-02-19 15:46] VITALS: BP 156/89
--- NOTE | 2021-02-19 16:12 | NUR ---
PT ALERT TO SELF ONLY VERY CONFUSED. VSS. PT REFUSED MEDS TODAY. PT DENIES PAIN/SOA. PT DID EAT SOME PORTIONS OF HIS MEALS TODAY. WILL CONTINUE TO MONITOR.
[2021-02-19 20:02] VITALS: BP 163/97
[2021-02-20 04:31] VITALS: BP 172/100
--- NOTE | 2021-02-20 04:38 | NUR ---
RECEIVED PATIENT ALERT AND ORIENTED TO SELF BUT STILL CONFUSED.ON ROOM AIR BREATHING SPONTANEOUSLY.WITH LEFT ARM AV FISTULA.NOT IN DISTRESS.STILL HE REFUSED IV CANNULA INSERTION AND IV MEDICATION.REFUSED MRSA SWAB TO BE DONE.ALL NEEDS ATTENDED.FALL PREVENTION MEASURES MAINTAINED.
[2021-02-20 04:57] LABS: HEMATOCRIT 22.8 % (42.0-52.0); HEMOGLOBIN 7.7 gm/dL (14.0-18.0); MCH 28.5 pg (26.0-34.0); MCHC 33.5 g/dL (28.0-37.0); MCV 85.1 fL (80.0-100.0); RBC 2.68 mil/uL (4.50-6.00); RDW 21.5 % (10.5-14.5); WBC 8.9 thou/uL (4.0-11.0)
[2021-02-20 05:08] LABS: CALCIUM 7.5 mg/dL (8.5-10.1); POTASSIUM 3.8 mmol/L (3.5-5.1)
[2021-02-20 05:17] LABS: CREATININE 6.7 mg/dL (0.7-1.3)
[2021-02-20 08:00] VITALS: BP 182/103
--- NOTE | 2021-02-20 10:53 | NUR ---
on-going assessment: CM REVIEWED CHART AND SPOKE WITH ATTENDING WHO REPORTS PT IS STABLE FOR DISCHARGE IF [facility] CAN ACCEPT HIM BACK TODAY. CM FAXED UPDATED CLINICAL TO RAMÓN ALVAREZ AND NOTIFIED KAMARI AND ARCELIA IN ADMISSIONS. AWAITING INPUT FROM [facility] AT THIS TIME.
[2021-02-20 12:06] VITALS: BP 151/84
[2021-02-20] MEDS ORDERED: COREG6.25 MG PO (12:32)
[2021-02-20] MEDS ORDERED: NORVASC5 M1 PO (12:32)
[2021-02-20] MEDS ORDERED: AUGMENTIN 875-1 EACH PO (12:32)
[2021-02-20] MEDS ORDERED: PREDNISONE 20 M20 M1 PO (12:32)
[2021-02-20] MEDS ORDERED: PROAIR HFA8.5 GM INH (12:58)
--- NOTE | 2021-02-20 13:57 | NUR ---
ON-GOING ASSESSMENT: CM REVIEWED CHART AND SPOKE WITH ATTENDING WHO REPORTS PT IS STABLE FOR DISCHARGE. CM NOTIFIED LIASON AT [facility] WHO REPORTS THEY CAN ACCEPT PATIENT BACK TODAY. CM NOTIFIED LIASON PT IS GETTING DIALYSIS AT [facility] BUT CAN DISCHARGE ANYTIME AFTER. CM FAXED UPDATED CLINICAL ON PATIENT WELL DISCHARGE PAPERWORK TO FACILITY AND CONFIRMED THEY RECEIVED IT. CHART COPY WAS ORDERED AND CM NOTIFIED [facility]. CM LEFT VM WIT PATIENTS NIKIA. TRANSPORTATION HAS BEEN ARRANGED BY [facility] FOR 1800. BEDSIDE RN NOTIFIED WELL WITH NUMBER FOR REPORT. PT HAS NO FURTHER NEEDS FROM CM PRIOR TO DISCHARGE.
[2021-02-20 17:32] VITALS: BP 151/84
--- NOTE | 2021-02-20 18:36 | NUR ---
ASSESSMENT CHARTED - MEDS PER AUG. DANIELA DIET AND FLUIDS. HAD DIALYSIS TODAY 3 L REMOVED. PT CONFUSED. PT BACK TO [facility] THIS EVEINGING AFTER DINNER. ATTMEPTED TO CALL REPORT X 2 ON HOLD FOR IN EXCESS OF 20 MIN. INFORMED SHEELCHAIR SHEET METAL DUCT INSTALLER APPRENTICE THAT HAD ATTEMPTED AND TO LET STAFF KNOW TO CALL IF THEY WNATED REPORT. PT TO THE WHEELCHAIR AND LEFT WITH SHEET METAL DUCT INSTALLER APPRENTICE.
== END 2021-02-20 18:15 | DRG 177 ==
LOC: ER 00:35 → EROBS 03:55 → 2N 03:55 → EROBS 16:08 → 2N 16:32
PROVIDERS: Emergency Medicine; Internal Medicine; Internal Medicine Pulmonary Disease; Nurse Practitioner; ADMIT Hospitalist; ATTEND Hospitalist
PROC: 5A1D70Z Performance of Urinary Filtration, Intermittent, Less than 6 Hours Per Day (ICD-10-PCS; principal; 2021-02-20)
DX: J69.0 Pneumonitis due to inhalation of food and vomit (principal); J96.01 Acute respiratory failure with hypoxia; N18.6 End stage renal disease; E43 Unspecified severe protein-calorie malnutrition; R65.11 Systemic inflammatory response syndrome (SIRS) of non-infectious origin with acute organ dysfunction; J44.1 Chronic obstructive pulmonary disease with (acute) exacerbation; G93.40 Encephalopathy, unspecified; K92.2 Gastrointestinal hemorrhage, unspecified; I12.0 Hypertensive chronic kidney disease with stage 5 chronic kidney disease or end stage renal disease; I16.0 Hypertensive urgency; E87.70 Fluid overload, unspecified; E87.5 Hyperkalemia; D64.9 Anemia, unspecified; K21.9 Gastro-esophageal reflux disease without esophagitis; F03.90 Unspecified dementia, unspecified severity, without behavioral disturbance, psychotic disturbance, mood disturbance, and anxiety; E78.5 Hyperlipidemia, unspecified; G47.00 Insomnia, unspecified; G89.29 Other chronic pain; R53.81 Other malaise; F32.9 Major depressive disorder, single episode, unspecified; F17.200 Nicotine dependence, unspecified, uncomplicated; Z20.822 Contact with and (suspected) exposure to COVID-19; Z68.20 Body mass index [BMI] 20.0-20.9, adult; Z79.899 Other long term (current) drug therapy; Z99.2 Dependence on renal dialysis; Z72.89 Other problems related to lifestyle
CPT/HCPCS: 10081; 32100

== ENCOUNTER 2021-03-07 14:26 | Inpatient (IN) | payer OTHER ==
[~2021-03-07] VITALS: Ht 193 cm; Wt 68.5 kg
--- NOTE | ~2021-03-07 | EMS ---
[facility] [address] [place] [address] EMS Patient Care Report Name: DONI COTA Room #: PRE SARA MRamana#: [id number] Admission: Attend Phys: Discharge: Date of : 51 Report #: [id number] THIS REPORT FOR: //name// Report Transmitted: 03/07/2021 14:33 EMS Care Summary [place], [place]/[facility] Incident [id number] @ 03/07/2021 13:53 Incident Location [address] [place] [address] Patient DONI COTA Male, 65 Years 1955 Patient Address [address] [place] [address] Patient History Other,Hypertension (HTN),Kidney/Renal Failure,Stroke/CVA,Dialysis, Patient Allergies No known allergies, Patient Medications Amlodipine, Avapro, Norvasc, Oxycodone, None Reported, Pantoprazole, Hydralazine, Chief Complaint WEAK Disposition Transported No Lights/[place] Dispatch Reason Sick Person Transported To [facility] Narrative RESPONDED TO SICK AT HOME. UPON ARRIVAL PT FOUND SITTING IN RECLINER ALERT WHEN ASKED QUESTIONS BUT VERY LETHARGIC AND WEAKER THAN NORMAL. FAMILY REPORT PT HAS BEEN RECOVERING FROM [facility] A MONTH AGO AND THEY NOTICED CHANGES SINCE SATURDAY. PT [facility] [address] [place] [address] EMS Patient Care Report Name: DONI COTA Room #: PRE SARA Sherman#: [id number] Admission: Attend Phys: Discharge: Date of : 51 Report #: [id number] ASSISTED TO STAIRCHAIR AND CARRIED TO COT WITH SEATBELTS APPLIED. PT VITALS AND 3 LEAD OBTAINED. PT NEGATIVE ON STROKE SCALE. PT TRANSPORTED TO [facility] WITH NO CHANGES. PT TEAM LIFTED TO BED AND HANDRAILS UP. REPORT GIVEN TO NURSE. Initial Vitals @14:11P: 97,R: 18,BP: 164/94,Glucose: 116,SpO2: 99, @14:12P: 60, @14:15P: 94,R: 16,BP: 156/89,Pain: 0/10,GCS: 14,CO: 5,SpO2: 99,Revised Trauma: 12, Assessments @14:03MENTAL:Event Oriented,Time Oriented,Person Oriented,Place Oriented,SKIN:HEENT:Head/Face: No Abnormalities,Neck/Airway: No Abnormalities,LUNG SOUNDS:General: No Abnormalities,Left Upper: No Abnormalities,Right Upper: No Abnormalities,Left Lower: No Abnormalities,Right Lower: No Abnormalities,ABDOMEN:General: No Abnormalities,Left Upper: No Abnormalities,Right Upper: No Abnormalities,Left Lower: No Abnormalities,Right Lower: No Abnormalities,PELVIS//GI:No Abnormalities,EXTREMITIES:Left Arm: Weakness,Right Arm: Weakness,Left Leg: Weakness,Right Leg: Weakness,Right Arm: Other,Left Arm: Other,PULSE:Radial: 2+ Normal,NEURO: Impression Generalized Weakness Procedures @14:03ALS AssessmentResponse: UnchangedSucceeded@14:103-Lead ECGResponse: UnchangedSucceeded Timeline 13:47,Call Received 13:47,Dispatch Notified 13:53,Dispatched 13:53,En Route 14:01,On Scene 14:03,At Patient 14:03,ALS Assessment,Response: UnchangedSucceeded, 14:10,3-Lead ECG,Response: UnchangedSucceeded, 14:11,BP: 164/94 M,PULSE: 97,RR: 18 R,SPO2: 99 Ox,ETCO2: ,B,PAIN: ,GCS: , 14:12,BP: / M,PULSE: 60,RR: R,SPO2: Ox,ETCO2: ,BG: ,PAIN: ,GCS: , 14:14,Depart Scene 14:15,BP: 156/89 M,PULSE: 94,RR: 16 R,SPO2: 99 Ox,ETCO2: ,BG: ,PAIN: 0,GCS: 14, 14:22,At Destination 14:32,Call Closed Disclaimer v1.1 Copyright 2020 [employer] [address] [address] EMS Patient Care Report Name: DONI COTA Room #: PRE M.R.#: [id number] Admission: Attend Phys: Discharge: Date of : 51 Report #: [id number] This EMS Care Summary contains data elements from the applicable legal record (which may be displayed differently). It is designed to provide pertinent information for the following purposes: continuity of care, clinical quality, and state data reporting. The complete legal record is available to ED staff and administrators of the receiving hospital in [facility]'s Patient Tracker. All data is provided "as is."
[~2021-03-07 14:26] MED LIST changes: +AUGMENTIN 875-1 EACH PO; +COREG6.25 MG PO; +HEPARIN SO5000 UNIT/ SUBQ; +NEPHRO-VITE RX1 TA1 PO; +NORVASC5 M1 PO; +PREDNISONE 20 M20 M1 PO; +PROAIR HFA8.5 GM INH; +VITAMIN C500 M2 PO
[2021-03-07 14:29] VITALS: BP 186/108
[2021-03-07 15:22] LABS: BASOPHILS 0.6 % (0.0-2.0); EOSINOPHILS 0.2 % (0.0-3.0); HEMATOCRIT 31.6 % (42.0-52.0); HEMOGLOBIN 10.3 gm/dL (14.0-18.0); LYMPHOCYTES 9.6 % (24.0-44.0); MCHC 32.4 g/dL (28.0-37.0); MCV 89.5 fL (80.0-100.0); MONOCYTES 10.4 % (1.0-8.0); PLATELET COUNT 179 thou/uL (150-400); POLYS 79.2 % (36.0-66.0); RBC 3.53 mil/uL (4.50-6.00); RDW 19.7 % (10.5-14.5); WBC 7.6 thou/uL (4.0-11.0)
[2021-03-07 15:30] LABS: CALCIUM 8.4 mg/dL (8.5-10.1); CREATININE 6.9 mg/dL (0.7-1.3)
[2021-03-07 15:52] LABS: ALBUMIN 2.3 g/dL (3.4-5.0); DIRECT BILIRUBIN 0.1 mg/dL (<0.1-0.2); TOTAL BILIRUBIN 0.5 mg/dL (0.2-1.0); TOTAL PROTEIN 8.2 g/dL (6.4-8.2)
--- NOTE | 2021-03-07 16:12 | NUR ---
PT SPOUSE IS NOW AT BEDSIDE AT NOTES THAT PT HAS BEEN OVER AT [facility] FOR ABOUT X1 MO FOR REHAB TO ASSIST WITH AMBULATION. PT SPOUSE STATES HE HAS ONLY BEEN HOME X1 NIGHT. PT SPOUSE CONFIRMS PT DID GO TO [facility] YEST[place]DAY AND THAT HE DOES NOT MAKE URINE. PT SPOUSE STATES HE HAS BEEN INCREASINGLY DROWSY SINCE HE WAS D/C FROM THIS HOSPITAL OVER TO [facility]. PT SPOUSE STATES SHE ALSO JUST NOTICED THE RIGHT HAND SWELL THIS AFTERNOON AND STATES SHE BELIEVES HE WAS SLEEPING ON HIS ARM
[2021-03-07 16:28] LABS: ANISOCYTOSIS 2+; MACROCYTES FEW; POLYCHROMASIA OCCASIONAL
--- NOTE | 2021-03-07 19:14 | NUR ---
REPORT GIVEN TO GRAHAM KELLY AT THIS TIME
[2021-03-07 23:50] VITALS: BP 188/92
[2021-03-08] VITALS (7 sets, daily range): BP systolic 132–189; BP diastolic 83–116
--- NOTE | 2021-03-08 02:31 | NUR ---
PT ARRIVED FROM ER. A&O X2 TO PERSON AND SITUATION. FORGETFUL. ADMISSION DONE AND PT ORIENTED TO THE UNIT. MONITOR ON TELE.2+ EDEMA NOTED ON RT FOOT AND RT HAND. PT INCONTINENT. PERICARE PROVIDED. FALL PREC IN PLACE. PT HAD A BM ON ARRIVAL. DIALYSIS M/W/F AND HAS A LEFT UA FISTULA. WILL CONT TO MONITOR.
--- NOTE | 2021-03-08 12:07 | NUR ---
A/O X 3. [place] air. bedbound. Right Forearm IV saline locked. Dialysis currently. M/W/F. Puree diet per speech eval. Left upper arm Fistula. Anuric. No home meds have been resumed. Nurse spoke with Dr. Recinos and he will resume home meds and pain medication. Right arm and leg weakness . Psych consult Dr. Roe ordered.
--- NOTE | 2021-03-08 17:32 | NUR ---
Case opened to follow for dc planning. Pt known to cm from [facility] admissions this summer. Pt was living at home with his a few months ago. He is a dialysis pt at [facility] but has not been there in a few months due to 5N acute rehab stay then transition to SNF at [facility] (he had dialysis onsite there). His son vin is at bedside most of the day today and interested in dpoa for hc document if pt wants to complete. Document reveiwed with both of them. Pt states he wants his son to make decisions if he can not. SNF/ ltc discussed and both receptive. [place] is interested in [place] he [place] in [place]. Listing left for their review. Neither are aware if he has applied for [place]icaid as he does not have a secondary ins or supplement. He is into his skilled copay days. Pt also dialyzes in [facility] and may not be able to get directly [place] a dialysis clinic [place]. Case discussed with the CORE MANAGER Feng Keith at [facility]. She indicates [facility] does not have any clinics up north. [facility] or [address] would be the only options. The pt may have to continue coming south to [facility] until he can get established with a [facility] clinic. Son to advise on facility choices tomorrow. Pt may be dc ready soon. Covid is negative. Will follow.
--- NOTE | 2021-03-08 21:56 | NUR ---
ASSUMED CARE OF PT AT 1915. PT IS A&O TO SELF, TIME, SITUATION. REPORTS GENERALIZED PAIN THAT IS BEING MANAGED WITH ORAL PAIN MEDS & OTHER THERAPUETIC TECHNIQUES. PT IS STABLE. IS ON ROOM AIR. NON PITTING EDEMA NOTED IN BLE, MORE SO ON RIGHT, ELEVATED. IS ABLE TO TURN SELF IN BED. TAKES PILLS CRUSHED IN PUDDING. HAS [facility]IALYS[facility] FISTULA. BRUIT AUSCULTATED, THRILL PALPATED. DRSG INTACT. LABS & VITALS REVIEWED. FALL PRECAUTIONS & HOURLY ROUNDING CONTINUED THIS SHIFT. PT IS CURRENTLY SLEEPING CALL LIGHT WITHIN REACH. WILL CONTINUE TO MONITOR. PT IS [place] IN LEFT EAR.
[2021-03-09 03:49] VITALS: BP 174/90
--- NOTE | 2021-03-09 06:04 | NUR ---
PT SPOUSE WAS AT BEDSIDE LAST NIGHT UNTIL VISITING HOURS WERE OVER. PT & SPOUSE WERE INFORMED OF PUREE DIET ORDERS. SPOUSE LEFT VANILLA WAFFERS & A 2 LITER BOTTLE OF SPRITE AT PT BEDSIDE. PT ALSO HAS BEEN REFUSING TO TURN IN BED. EDUCATION HAS BEEN PROVIDED.
--- NOTE | 2021-03-09 10:21 | NUR ---
ASSUMED PT CARE AROUND 0700. PT ALERT X ORIENTED X 3-4, FORGETFUL. HARD OF HEARING,GENERALISED PAIN PARTIALLY CONTROLLED BY PAIN MEDS. EDEMA BILLINGSLEY ON RT FEET, PUREED DIET AND THIN LIQUIDS, MEDS CRUSHED WITH PUDDING. ON TELEMETRY. DIALYSIS PT WITH FISTULA ON LF UPPER ARM, THRILL AND BRUI HEARD ON AUSCULTATION. IV RT FA AND SALINE LOCKED. PT WORKED WITH PATIENT AND EVALUATED ONE PERSON ASST TO BATHROON WITH EXTRA TIME. FALL PRECAUTION IN PLACE, USES CALL LIGHT. WILL CONTINUE TO MONITOR.
[2021-03-09 12:00] VITALS: BP 155/99
--- NOTE | 2021-03-09 12:08 | NUR ---
Lengthy visit with pt and his son Bubba at bedside this am regarding the pt's care needs, goals for himself, and DPOA for HC. The pt is a&ox4 and indicates that he wants his son to be his DPOA for HC. He would like to dc home with his son and consider ltc placement in the future near his son (Jose Ale[facility]). His sister Tiffanie called and the family is helping him secure an civil rights attorney as he is wanting to divorce his Kathya and seperate their affairs. Spiritual care paged for notary services. Pt's son and dtr in law state they can provide 24hr care for him and will transport him to [facility] for continued dialysis tx. The pt has not applied for [place] medicaid and does not have any secondary insurance for copay for snf or for ltc. His financial situation is contingent on dividing his assets with his . He is aware that if he decides to stop dialysis tx in the future this will result in his . He wishes to continue tx at this time. He and the son are aware that hospice services can be initiated should he make this decision in the future. Renal and the attending updated. They would like to resume hh services with [facility]. Pt is medically stable for dc today. [facility] notified to resume his outpt schedule tomorrow. Referral faxed to [facility] for possible placement in the future.
[2021-03-09 12:22] VITALS: BP 187/104
[2021-03-09 14:41] VITALS: BP 187/104
[2021-03-09 15:37] VITALS: BP 187/104
--- NOTE | 2021-03-10 09:37 | NUR ---
Call back rec'd from [facility] referral line this amCirilo Watters at has the request. Back Tender Fourdrinier provided the son's number and OCULAR PATHOLOGIST at [facility] contact info for [facility] to f/u with them. [facility] Chew has t-th-sat openning first shift and they have put a request in for that shift.
== END 2021-03-09 16:06 | disposition home health service (06) | DRG 682 ==
LOC: ER 14:26 → EROBS 19:01 → 4S 19:01 → 4E 03-08 00:33 → 4S 03-08 00:34
PROVIDERS: Emergency Medicine; ADMIT Internal Medicine; ATTEND Internal Medicine
PROC: B54MZZA Ultrasonography of Right Upper Extremity Veins, Guidance (ICD-10-PCS; principal; 2021-03-07)
PROC: 05HY33Z Insertion of Infusion Device into Upper Vein, Percutaneous Approach (ICD-10-PCS; principal; 2021-03-07)
DX: I12.0 Hypertensive chronic kidney disease with stage 5 chronic kidney disease or end stage renal disease (principal); N18.6 End stage renal disease; E43 Unspecified severe protein-calorie malnutrition; G93.41 Metabolic encephalopathy; Z68.1 Body mass index [BMI] 19.9 or less, adult; G47.00 Insomnia, unspecified; F32.9 Major depressive disorder, single episode, unspecified; F17.210 Nicotine dependence, cigarettes, uncomplicated; F03.90 Unspecified dementia, unspecified severity, without behavioral disturbance, psychotic disturbance, mood disturbance, and anxiety; R53.81 Other malaise; G89.4 Chronic pain syndrome; E78.5 Hyperlipidemia, unspecified; E87.70 Fluid overload, unspecified; D63.8 Anemia in other chronic diseases classified elsewhere; Z79.891 Long term (current) use of opiate analgesic; Z82.49 Family history of ischemic heart disease and other diseases of the circulatory system; Z20.822 Contact with and (suspected) exposure to COVID-19
CPT/HCPCS: 10100; 32100

== ENCOUNTER 2021-03-10 21:50 | Inpatient (IN) | payer OTHER ==
[~2021-03-10] VITALS: Ht 193 cm; Wt 66.5 kg
--- NOTE | ~2021-03-10 | EMS ---
[address] [address] EMS Patient Care Report Name: DONI COTA Room #: 463-P ADM IN M.R.#: [id number] Admission: 03/11/21 Attend Phys: Sonido Recinos MD Discharge: Date of : 51 Report #: [id number] THIS REPORT FOR: //name// Report Transmitted: 03/13/2021 10:22 EMS Care Summary [place], [place]/[facility] Incident [id number] @ 03/10/2021 21:38 Incident Location [address] [place] [address] Patient DONI COTA Male, 65 Years 1955 Patient Address [address] [place] [phone] Patient History Other,Hypertension (HTN),Kidney/Renal Failure,Stroke/CVA,Dialysis, Patient Allergies No known allergies, Patient Medications Norvasc, Pantoprazole, Avapro, Oxycodone, Hydralazine, Amlodipine, Chief Complaint altered mental status Disposition Transported No Lights/[place] Dispatch Reason Unconscious/Fainting Transported To [facility] Narrative Initially dispatched with [facility] for unconscious. Upon EMS arrival patient was found sitting in the front passenger seat of his vehicle, conscious, lethargic. Dialysis clinic staff report that the patient had finished his dialysis treatment with no issues. She stated that as they were moving the patient to the car he became very lethargic. Staff stated that it took them "10 [facility] [address] [facility] [address] EMS Patient Care Report Name: DONI COTA Room #: 463-P ADM IN M.R.#: [id number] Admission: 03/11/21 Attend Phys: Sonido Recinos MD Discharge: Date of : 51 Report #: [id number] minutes" to get the patient in the car, then decided to call 911. Patient was picked up out of the car and placed on the stretcher. He was secured and loaded into the ambulance. 12-lead EKG showed Sinus tachycardia. Patient was transported to [facility] without incident. Full report was given to RN prior to signing this document. Initial Vitals @21:54P: 105,BP: 165/95,CO: 7,SpO2: 95, @21:51P: 104,CO: 4,SpO2: 95,ID Suspected: false @21:48P: 136,SpO2: 95, @21:48P: 51,R: 16,BP: 110/73,Pain: 0/10,GCS: 13,Glucose: 76,SpO2: 95,Revised Trauma: 12, Assessments @21:43MENTAL:Person Oriented,Other,Combative,SKIN:No Abnormalities,HEENT:Head/Face: No Abnormalities,Eyes: No Abnormalities,Neck/Airway: No Abnormalities,LUNG SOUNDS:General: No Abnormalities,Left Upper: No Abnormalities,Right Upper: No Abnormalities,Left Lower: No Abnormalities,Right Lower: No Abnormalities,ABDOMEN:General: No Abnormalities,Left Upper: No Abnormalities,Right Upper: No Abnormalities,Left Lower: No Abnormalities,Right Lower: No Abnormalities,PELVIS//GI:EXTREMITIES:Left Arm: No Abnormalities,Right Arm: No Abnormalities,Left Leg: No Abnormalities,Right Leg: No Abnormalities,PULSE:NEURO: Impression Altered Mental Status Procedures @21:5112-Lead ECGResponse: UnchangedSucceeded@21:43ALS AssessmentResponse: UnchangedSucceeded@21:50Saline Lock 0cc (20 ga) Site: Forearm-RightResponse: UnchangedFailed Timeline 21:36,Call Received 21:36,Dispatch Notified 21:38,Dispatched 21:38,En Route 21:43,On Scene 21:43,At Patient 21:43,ALS Assessment,Response: UnchangedSucceeded, 21:48,BP: 110/73 M,PULSE: 51,RR: 16 R,SPO2: 95 Ox,ETCO2: ,B,PAIN: 0,GCS: 13, 21:48,BP: / M,PULSE: 136,RR: R,SPO2: 95 Ox,ETCO2: ,BG: ,PAIN: ,GCS: , 21:50,Saline Lock 0cc 20 ga Site: Forearm-Right,Response: UnchangedFailed, 21:51,12-Lead ECG,Response: UnchangedSucceeded, [facility] [address] [place] [address] EMS Patient Care Report Name: DONI COTA Room #: 463-P ADM IN M.R.#: [id number] Admission: 03/11/21 Attend Phys: Sonido Recinos MD Discharge: Date of : 51 Report #: [id number] 21:51,BP: / M,PULSE: 104,RR: R,SPO2: 95 Ox,ETCO2: ,BG: ,PAIN: ,GCS: , 21:54,Depart Scene 21:54,BP: 165/95 M,PULSE: 105,RR: R,SPO2: 95 Ox,ETCO2: ,BG: ,PAIN: ,GCS: , 21:56,At Destination 22:04,Call Closed Disclaimer v1.1 Copyright 2020 [employer] This EMS Care Summary contains data elements from the applicable legal record (which may be displayed differently). It is designed to provide pertinent information for the following purposes: continuity of care, clinical quality, and state data reporting. The complete legal record is available to ED staff and administrators of the receiving hospital in [facility]'s Patient Tracker. All data is provided "as is."
[2021-03-10 22:08] VITALS: BP 159/83
--- NOTE | 2021-03-10 22:21 | NUR ---
SPOKE WITH PT SON, HE HAS RECENTLY ASSUMED CARE OF PT DUE TO PT AD HIS . PT SON NOT AWARE OF PT BASELINE BEHAVIOR FAR VIOLENT AND HOSTILE BEHAVIOR. BUT STATES THAT THERE MAY HAVE BEEN SOME OF THIS BEHAVIOR INVOLVED IN THE SITUATION WITH THE PT AND HIS
--- NOTE | 2021-03-10 22:32 | NUR ---
WHILE SECURITY AT BEDSIDE AND NURSING STAFF ATTEMPTING TO PLACE IV PT CONTINUES TO MAKE VERBAL THREATS TO STAFF. ATTEMPTING TO GRAB AND HIT STAFF WHILE WE ARE ATTEMPTING TO ROVIDE MEDICAL TREATMENT. INITIAL LABS WERE OBTAINED BUT UNABLE TO OBTAIN IV ACCESS OT EKG DUE TO PT VIOLENT BEHAVIOR TOWARDS STAFF.
[2021-03-10 22:48] LABS: CALCIUM 8.5 mg/dL (8.5-10.1); CREATININE 3.5 mg/dL (0.7-1.3); POTASSIUM 3.8 mmol/L (3.5-5.1)
[2021-03-10 23:07] LABS: ALBUMIN 2.4 g/dL (3.4-5.0); MAGNESIUM 1.8 mg/dL (1.8-2.4); TOTAL BILIRUBIN 0.4 mg/dL (0.2-1.0); TOTAL PROTEIN 8.4 g/dL (6.4-8.2)
[2021-03-10 23:09] LABS: HEMATOCRIT 31.2 % (42.0-52.0); HEMOGLOBIN 10.4 gm/dL (14.0-18.0); MCH 29.7 pg (26.0-34.0); MCHC 33.1 g/dL (28.0-37.0); MCV 89.8 fL (80.0-100.0); PLATELET COUNT 228 thou/uL (150-400); RBC 3.48 mil/uL (4.50-6.00); RDW 19.2 % (10.5-14.5); WBC 11.3 thou/uL (4.0-11.0)
[2021-03-11 00:05] LABS: ANISOCYTOSIS 2+
--- NOTE | 2021-03-11 08:04 | NUR ---
- SON BELEM COTA.
--- NOTE | 2021-03-11 11:26 | EKG ---
[place] [address] [facility] [address] ELECTROCARDIOGRAM REPORT Name: BEATADONI Room #: 170-2 ADM IN M.R.#: [id number] Admission: 03/11/21 Attend Phys: Mony Alcantar MD Discharge: Date of : 51 Report #: [id number] [facility] ED Test Date: 2021-03-11 Test Time: 02:08:24 Pat Name: DONI COTA Department: Room: 170 Gender: M Inbound Telemarketer: CELSA : 1955 Requested By: Varghese Lagos Order Number: [id number] MD: Esvin Queen Measurements Intervals [place] Rate: 96 P: -3 [place]: 172 QRS: -59 QRSD: 81 T: 124 QT: 364 QTc: 460 Interpretive Statements Sinus rhythm Left ventricular hypertrophy Anterior infarct, old T wave inversions in the lateral leads compared to ECG 02/16/2021 01:16:00 Sinus tachycardia no longer present Left anterior fascicular block no longer present Prolonged QT interval no longer present Electronically Signed On 03-11-2021 11:26:06 CDT by Esvin Queen [email or web address] <ELECTRONICALLY SIGNED> By: Esvin Queen MD 03/11/21 1126 Esvin Queen MD /HALLIE
[2021-03-11 11:54] VITALS: BP 162/96
[2021-03-11 12:01] VITALS: BP 156/90
[2021-03-11 13:15] VITALS: BP 170/87
[2021-03-11 15:39] VITALS: BP 164/78
[2021-03-11 21:12] VITALS: BP 136/71
--- NOTE | 2021-03-12 07:05 | NUR ---
Assumed pt care at 1900. A/OX4 with forgetfulness noted but able to make needs known.No aggressive behaviors noted. VSS. Anuric but incontinent of bowels this shift. Open area noted on right ischium and a healing peeling spot on right buttock;wound care cordinator consulted. LUE fistula with bruit/thrill present. Pt has no PIV,refused to be stuck. Fall precations in place.
[2021-03-12 09:03] VITALS: BP 158/77
[2021-03-12 16:38] VITALS: BP 142/76
--- NOTE | 2021-03-12 18:53 | NUR ---
PT RRESTED IN BED TODAY BUT WAS UP TO BATHROOM. PT TOLERATING PO WELL.
--- NOTE | 2021-03-13 04:23 | NUR ---
ASSUMED PT CARE AT 1930. PT IS ALERT AND ORIENTED WITH CONFUSION. PT WAS PLEASANTLY CHATTING WITH SON. PT IS KIVALINA. PT HAS SHUNT TO THE ANNA MARIE WITH SUTURES AND DRSG INTACT. VS ARE WITHIHN THE NORMAL RANGE AND MEDS WERE GIVEN PER EMAR ORDERS. PT HAS OPEN SORE TO THE SACRUM AND R ISCHIUM. PT CANNOT EXPLAINED HOW THE SORE DEVELOPED WHEN QUESTIONED. PT CAN SOMETIMES BE NON-COMPLIANT WITH THE USE OF CALL LIGHT EVEN AFTER RE-EDUCATION. FALL PREACUTIONS IN PLACE. WILL CONTINUE TO MONITOR.
[2021-03-13 06:32] VITALS: BP 128/76
[2021-03-13 08:31] VITALS: BP 200/111
--- NOTE | 2021-03-13 10:01 | NUR ---
WOUND CONSULT; AN AREA WAS IDENTIFIED TO THE SACRUM AND THE UPPER BACK. THE SACRUM AREA IS PRESSURE VS FRICTION. NO DRAINAGE SEEN. NO ORDER. THE UPPER BACK HAS S/S OF PRESSURE VS FRICTION. RECOMMENDATIONS; BARRIER CREAM TO THE UPPER BACK AND SACRUM. DISCUSSED WITH RN.
--- NOTE | 2021-03-13 14:25 | NUR ---
PT ADMITTED SATURDAY. PT HAD DISCHARGED HOME Saturday03/09/21 WITH HIS SON AND [facility]. PT GOES TO DIALYSIS AT [facility] AND [facility] HAD BEEN TRANSPORTING PT. LOOKS LIKE REFERRALS HAD BEEN SENT TO [facility] FOR SHORT TERM SKILLED STAY AND TO [facility] TO INITIATE TRANSFER FOR DIALYSIS [place] TO WHERE PT IS STAYING WITH SON. CM SPOKE WITH SON BELEM THIS AM AND HE INDICATED THEY WERE INTERESTED IN SHORT TERM SKILLED AT AT [facility] OR [facility]. CM CALLED AND LEFT VM WITH ALDO IN ADMISSIONS AT [facility] AND FAXED REFERRAL TO [facility] FOR REVIEW. CM CALLED AND SPOKE WITH INTAKE AT [facility] AND THEY INDICATED THAT THEY ANTICIPATE PT STARTING CARES THERE TOMORROW Saturday03/14/21 5:30 CHAIR TIME T,R,S. CM FOLLOWING REGARDING DC PLANNING. THERAPY AND COVID TEST ORDERED. CARE TEAM INDICATED THAT PT WOULD BE MEDICALLY STABEL TO DC AFTER DIALYSIS THIS DAY. CM ATTEMPTING TO FIND ACCEPTING FACILITY.
[2021-03-13 16:42] VITALS: BP 135/72
[2021-03-13 19:34] VITALS: BP 123/69
--- NOTE | 2021-03-13 20:03 | NUR ---
PATIENT ON DIALYSIS THIS MORNING AT SHIFT CHANGE. 3L TAKEN OFF. TOLERATED WELL. WAS HYPERTENSIVE WITH DIALYSIS BUT PRESSURES CAME DOWN POST DIALYSIS AND AFTER ADMINISTRATION OF BLOOD PRESSURE MEDICATIONS. PATIENT ALERT AND ORIENTED AT TIMES WITH MOMENTS OF CONFUSION AND FORGETFULNESS. IMPULSIVE AT TIME, BED ALARM AND ALL FALL PRECAUTIONS IN PLACE. PT/OT ORDERS PLACED. ATTEMPTED TO OBTAIN COVID SWAB FOR DISCHARGE, PATIENT REFUSED MULTIPLE TIMES. WILL RE-ADDRESS. PLAN FOR PATIENT TO DISCHARGE TO FACILITY.
--- NOTE | 2021-03-14 04:44 | NUR ---
ASSUMED PT CARE THIS EVENING. PT IS ALERT AND ORIENTED TO SELF WITH CONFUSION AND FORGETFULNESS. PT IS UNPLEASANT AND IRRITATED.PT IS ANGRY ABOUT NOT BEING DISCHARGED HOME. PT STILL IRRITATED EVEN AFTER EXPLAINING REASON FOR THE DELAY. PT REFUSED PAIN MEDS EVEN AFTER REQUESTING AND STARTED CUSSING. PT REFUSED PIV ACCESS.PT HAS DIALYSIS SHUNT ON ANNA MARIE. PT HAS WOUND TO THE R ISCHIUM AND R SACRUM. PT TOLERATING RA, FALL PREACUTIONS IN PLACE. WILL CONTINNUE TO MONITOR.
[2021-03-14 08:07] VITALS: BP 118/58
[2021-03-14 11:32] VITALS: BP 122/61
--- NOTE | 2021-03-14 11:54 | NUR ---
CM SPOKE WITH ADMISSIONS AT [facility] AND THEY INDICATED NO LTC BEDS, CM SPOKE WITH ADMISSIONS AT [facility] AND AND THEY DON'T HAVE ANY LTC BEDS. CM CALLED [facility] AND FAXED REFERRAL FOR REVIEW AND [facility] AND FAXED REFERRAL FOR REVIEW. CM SPOKE WITH PT'S SON THIS AM INDICATING THAT HE IS LOOKING FOR PT TO GO SHORT TERM SKILLED TRANSITION TO [place]TC [place]ENDING HE'S RETURNING TO WORK AND CAN'T MEET PT'S CARE NEEDS. CM AWAITING THEIR REVIEW.
[2021-03-14 17:24] VITALS: BP 149/71
[2021-03-14 19:49] VITALS: BP 149/67
--- NOTE | 2021-03-14 19:49 | NUR ---
Alert and orientated to person, place and time. Conversive. Calm, cooperative and compliant. Breath sounds clear. Reg HR auscultated. Color pink with brisk capillary refill and palpable peripheral pulses. Dialysis cathetar per L upper arm, capped, drsg dry and intact. Anuric. Active bowel sounds over soft, flat abdomen. Wounds per R hip and sacrum, cleaned x 2 today and dressed with borderfoam. Unable to find 4x4 borderfoam on 4 different units for R hip wound so placed borderless drsg. Bed malfunctioning late in day so transferred to different bed. Currently in room without s/o distress, talkative.
--- NOTE | 2021-03-15 05:08 | NUR ---
RECEIVED CARE OF THIS PAITENT AT 1900. PATIENT ALERT AND ORIENTED X PERSON, PLACE, AND TIME. GETS CONFUSED AT TIMES. GETS UP WITH ASSIST OFONE. DRESSING ON HIP AND COCCYX INTACT. HARD OF HEARINGI R EAR AND NO HEARING IN THE L. C/O PAIN, MED GIVEN. SLEPT OFF AND ON DURING NIGHT.
[2021-03-15 08:08] VITALS: BP 140/69
--- NOTE | 2021-03-15 12:06 | NUR ---
Nutrition: RECommend ST eval. Last admit pureed diet was recommended. Currently only on renal.
--- NOTE | 2021-03-15 14:51 | NUR ---
CM FOLLOWED UP WITH FACILITIES THAT REFERRALS HAD BEEN SENT TO YESTERDAY. [facility] HAVE INDICATED THAT THEY WANT NURSING NOTES AND COPY OF SUBMITTED MEDICAID APPLICATION. CM AWAITING COPY OF MEDICAID APPLICATION FROM [facility]. CM TO FAX AND FOLLOW UP.
--- NOTE | 2021-03-15 15:56 | NUR ---
ASSUMED PT CARE AROUND 0720. PT ALERT X ORIENTED X3. ONE PERSON X ASSIST X WALKER. DIALYSIS M,W,F. LEFT UA FISTULA.HARD OF HEARING ON RT EAR AND NO HEARING ON LEFT SIDE. WEAK ON LEFT SIDE, CONTRACTURE ON LEFT SIDE. TAKE MEDICINE WHOLE WITH PUDDING. HAD DIALYSIS TODAY, SON WAS IN THE ROOM TILL TODAY AFTERNOON. PATIENT WILL CALL AND ASK FOR PAIN MEDICINE. CALL LIGHT IN REACH. FALL PRECT IN PLACE. WILL CONT TO MONITOR.
[2021-03-15 18:42] VITALS: BP 147/62
--- NOTE | 2021-03-16 04:07 | NUR ---
ASSUMED PT CARE THIS EVENING. PT IS ALERT AND ORIENTED TO SELF WITH CONFUSION AND FORGETFULNESS. PT HAS DIALYSIS SHUNT TO THE ANNA MARIE. PT HAS WOUND TO THE R ISCHIUM AND R BUTT. DRSG CHANGE DONE. PT REFUSED COVID SWAB. PT HAS NO IV ACCESS. PT IS UPX1 WITH WALKER AND GB TO BR/BSC. PT CAN SOMETIMES BE NON-COMPLIANT WITH THE USE OF CALL LIGHT. PT TOLERATING RA. NO VISIBLE SIGN OF DISTRESS NOTED. FALL PRECAUTIONS IN PLACE. WILL CONTINUE TO MONITOR.
[2021-03-16 08:15] VITALS: BP 145/82
--- NOTE | 2021-03-16 13:35 | NUR ---
Assumed pt care at 7am.Pt in bed sleeping on and off without c/o. Assessment completed.vss.Pt tolerated meds and diet.Dr Salinas here.order noted. Pt still waiting for placement at [facility].Pt refused therapy this am. Waiting for pt son to be at bs before collecting nasal swab for covid 19.Pt in bed sleeping at present.Will continue to monitor.
--- NOTE | 2021-03-16 14:40 | NUR ---
CM RECEIVED COPY OF PT'S SUBMITTED [place] MEDICAID APPLICATION. CM FAXED IT AND NURSING NOTES TO [facility] FOR REVIEW FOR POSSIBLE ADMISSION. CM REACHED OUT TO ADMISSIONS AND SHE STATED SHE WOULD REVIEW AND FOLLOW BACK UP.
[2021-03-16 17:22] VITALS: BP 152/79
[2021-03-16 19:27] VITALS: BP 148/73
[2021-03-17 08:51] VITALS: BP 141/72
--- NOTE | 2021-03-17 09:14 | HC ---
[facility] [place] [address] CONSULTATION Name: DONI COTA Room #: 463-P ADM IN M.R.#: [id number] Admission: 03/11/21 Attend Phys: Sonido Recinos MD Discharge: Date of : 51 Report #: [id number] THIS REPORT FOR: cc: Myron Oneil MD, Ahmed I. MD Althoff, Jeffrey R. MD ~ DATE OF SERVICE: 03/13/2021 CHIEF COMPLAINT: Right ischial and right hip pressure ulcerations. HISTORY OF PRESENT ILLNESS: This is a 65-year-old male patient who was admitted to the hospital with acute encephalopathy. He has a history of end-stage renal disease requiring hemodialysis, hypertension and some underlying dementia. The patient lives with his son. The patient is somewhat confused at this time, but cooperative. PAST MEDICAL HISTORY: Positive for dementia, hypertension, insomnia, end-stage renal disease requiring hemodialysis, depression. SOCIAL HISTORY: The patient is a current smoker. Admits to occasional alcohol use. FAMILY HISTORY: Noncontributory. MEDICATIONS: Includes carvedilol, amlodipine, oxycodone, gabapentin, trazodone, lidocaine. ALLERGIES: No known drug allergies. REVIEW OF SYSTEMS: Very limited due to the patient's somewhat confused and slightly somnolent state and all pertinent review of systems are listed in his history of present illness. PHYSICAL EXAMINATION: VITAL SIGNS: The patient's vital signs include temperature 37.1, pulse 83, respirations 19, blood pressure 122/61. GENERAL: This is a chronically ill-appearing male patient who appears to be in minimal distress. HEENT: Head normocephalic. Nose and throat clear. NECK: Supple. LUNGS: Clear. ABDOMEN: Soft. EXTREMITIES: Examination of the extremities demonstrate what appears to be a stage 2 pressure ulceration to his right hip, stage 3 pressure ulceration to the right ischial region. It is relatively shallow with no exposed deep structures. NEUROLOGIC: The patient is somewhat confused, some limited motion on the right [address] [address] CONSULTATION Name: DONI COTA Jaime Room #: 463-P [facility] IN ..#: [id number] Admission: 03/11/21 Attend Phys: Sonido Recinos MD Discharge: Date of : 51 Report #: [id number]. LABORATORY STUDIES: Include white blood cell count 11.3 with a hemoglobin of 10.4. Sodium 136, potassium 3.8, chloride 97, CO2 of 30, BUN 12, creatinine 3.5, glucose 79. Albumin is 2.4. CLINICAL IMPRESSION: 1. Stage 3 pressure ulceration of the right greater trochanter and right gluteal ischial region. 2. End-stage renal disease requiring hemodialysis. 3. Severe debility with self-care deficit. 4. Hypertension. 5. Chronic obstructive pulmonary disease. 6. Hyperlipidemia. 7. Chronic anemia. 8. Chronic pain syndrome. 9. Severe protein-calorie malnutrition with an albumin of 2.4. RECOMMENDATIONS: At this point in time, the patient will be placed on a low air loss surface with Z-Guard and daily to both of the ulcerated areas. He will need q.2 hour turning and repositioning, aggressive nutritional support as well as he can tolerate with his underlying renal insufficiency. Continue medical management and current medications. I appreciate being asked to see him in consultation. <ELECTRONICALLY SIGNED> By: Tre Watt MD 03/17/21 0914 1722 [id number] Tre Watt MD /nt
--- NOTE | 2021-03-17 15:19 | NUR ---
[facility] SAYING THEY WON'T TAKE PT BECAUSE HE WE'VE BEEN USING BED AND CHAIR ALARMS. CM CALLED ADMISSIONS AND WAS TOLD SHE'S LEFT FOR THE DAY. CM LEFT MESSAGE FOR CALL BACK. [facility] CALLED [facility] TO FOLLOW UP ON REFERRAL SENT THERE EARLIER.
[2021-03-17 15:59] VITALS: BP 129/65
--- NOTE | 2021-03-17 18:51 | NUR ---
Assumed pt care at 7am.Pt in bed most of the time this shift.Assessment completed .vss.Pt c/o generalized bodyache.Am meds given with breakfast and well toerated. Dr Rubio here early this shift wanted cm to assist with dc planning and also inform the pt when he will be dc. Cm notified. Pt dialyzed today and 1.5liter of fluid was taken off.Pain med given once this evening with relief.Pt here, updates given.Report off to kendra rn.
[2021-03-17 19:46] VITALS: BP 145/74
--- NOTE | 2021-03-18 07:25 | NUR ---
PATIENT AOX1 CONFUSED AND FORGETFUL. FALL PRECAUTION IN PLACE. PAIN CONTROLLED THIS SHIFT. PATIENT IN BED ASLEEP AT THIS TIME BREATHING REGULAR AND UNLABOURED.
[2021-03-18 08:00] VITALS: BP 146/77
--- NOTE | 2021-03-18 16:24 | NUR ---
Assumed pt care at 7am.Pt in bed sleeping most of the time today. Assessment completed.vss.Meds given and well tolerated. Pt c/o back pain. Pain patch applied. Repositioned pt as need for comfort. Pt still waiting for bed palcement and insurance auth. Will continue to monitor.
[2021-03-18 21:30] VITALS: BP 160/85
--- NOTE | 2021-03-19 04:28 | NUR ---
Pt. rested quietly during the night when checked on during frequent rounds. He c/o generalized pain and po pain med given (see emar) with some relief noted. He is alert, but confused. Assisted to the bathroom with walker and gait belt. Bed alarm is on.
[2021-03-19 07:02] LABS: HEMATOCRIT 28.3 % (42.0-52.0); HEMOGLOBIN 9.2 gm/dL (14.0-18.0); MCH 29.2 pg (26.0-34.0); MCHC 32.6 g/dL (28.0-37.0); MCV 89.4 fL (80.0-100.0); RBC 3.17 mil/uL (4.50-6.00); RDW 18.2 % (10.5-14.5); WBC 6.1 thou/uL (4.0-11.0)
[2021-03-19 07:21] LABS: CALCIUM 8.6 mg/dL (8.5-10.1); POTASSIUM 4.3 mmol/L (3.5-5.1)
[2021-03-19 08:07] VITALS: BP 160/89
[2021-03-19 16:17] VITALS: BP 122/59
--- NOTE | 2021-03-19 19:49 | NUR ---
Assumed pt care at 7am.Pt in bed most of the time today.Repositioned as needed for comfort.Assessment completed.vss.Pt tolerated meds and diet.Good appetite noted. Pt likes nepro supplement and requested for it at all meals. here to visit,updates given. Pt will dialyze in the morning and p[ossibly dc to snf if approve by insurance.Fall bundle in place. Will continue to monitor.
[2021-03-19 20:00] VITALS: BP 149/75
--- NOTE | 2021-03-20 03:39 | NUR ---
Patient aox1 confused and forgetful.pain controlled this shift. patient has left upper arm fistula. fall precaution in place. patient in bed asleep at this time breathing regular and unlaboured.
[2021-03-20 08:00] VITALS: BP 172/76
--- NOTE | 2021-03-20 15:06 | NUR ---
ASSUMED PT CARE THIS AM. PT A&OX1, DOES NOT MAKE NEEDS KNOWN WITH CALL LIGHT. PATIENT REPORTING NO PAIN. PATIENT SLEEPING THROUGH MOST OF SHIFT. MEDICATION TAKEN, HAD TO ENCOURAGE PATIENT TO SWALLOW BITE OF APPLESAUCE WITH PILLS. FALL PRECAUTIONS ARE IN PLACE, CALL LIGHT WITHIN REACH.
--- NOTE | 2021-03-20 16:39 | NUR ---
CM FOLLOWED UP WITH [facility] THIS DAY. THEY REVIEWED REFERRAL AND ASKED FOR UPDATED PROG NOTE AND NURSING NOTES. CM FAXED THEM. CM FOLLOWING REGARDIGN HOPEFUL DC TO A SKILLED FACILITY [place].
[2021-03-20 17:40] VITALS: BP 106/55
[2021-03-20 21:20] VITALS: BP 140/78
[2021-03-20 22:06] LABS: SYPHILIS AB Non Reactive (Non Reactive)
[2021-03-21 07:22] VITALS: BP 147/77
--- NOTE | 2021-03-21 09:08 | NUR ---
RECEIVED CARE OF THIS PATIENT AT 1900. PATIENT ALERT AND ORIENTED TO SELF ONLY. HAS DIALYSIS FISTULA IN ANNA MARIE. ANURIC. HAS DRESSING R JACKIE AND R HIP D/I. PATIENT CONFUSED AND REPEATS SELF. NEED TO REPEAT THINGS TO PATIENT. AT TIMES SEEMS TO UNDERSTAND AND OTHER TIMES DOES NOT. SLEPT OFF AND ON DURING NIGHT. C/O PAIN, MED GIVEN.
--- NOTE | 2021-03-21 11:58 | NUR ---
ASSUMED PT CARE THIS AM. PT A&OX3, ABLE TO MAKE NEEDS KNOWN WITH CALL LIGHT. PATIENT REPOTING NO PAIN. PATIENT REMAINS INCONTINENT OF BOWEL AND ANURIC. MEDICATIONS TAKEN WITHOUT ISSUE. FALL PRECAUTIONS ARE IN PLACE, CALL LIGHT WITHIN REACH.
--- NOTE | 2021-03-21 14:32 | NUR ---
CM FOLLOWED UP WITH ADMISSIONS STAFF AT [facility] AND THEY HAD RECEIVED UPDATED CLINICAL THEY HAD REQUESTED YESTERDAY. THEIR BUSSINESS OFFICE HAD ASKED HOW MANY DAYS PT HAD BEEN AT [facility] AND CM CALLED THERE AND HE HAD USED 18 DAYS 02/10-02/16 AND THEN 02/20-03/05. CM NOTIFIED ADMISSIONS AT [facility] OF THIS. CM AWAITING RESPONSE FROM THEM.
[2021-03-21 16:35] VITALS: BP 129/77
[2021-03-21 19:47] VITALS: BP 102/59
--- NOTE | 2021-03-22 07:11 | NUR ---
patient aox1/2 confused and forgetful. pain controlled this shift. patient uses a walker to ambulate. patient uses bedside commode. fall precaution in place. patient in bed doing dialysis at this time.
[2021-03-22 07:29] VITALS: BP 170/95
--- NOTE | 2021-03-22 15:24 | NUR ---
ASSUMED PT CARE THIS AM. PT IS ALERT & ORIENTED X2, CONFUSED AND FORGETFUL. PT HAS ANNA MARIE FISTULA. PT HAD DIALYSIS THIS AM AND 1.5L OUTPUT. DID WOUND CARE ON R BUTTOCK AND R TROCHANTER WITH NS, BARRIER CREAM AND BORDERED FOAM. PT IS INCONTINENT OF BOWEL AND ANURIC. PT IS ON ROOM AIR. GIVEN MEDICATIONS WITH PUDDING. LAST BM WAS TODAY. PT ON THE BED, BED ON THE LOWEST POSITION, SIDE RAILS UP, CALL LIGHT WITHIN REACH. WILL CONTINUE TO MONITOR PT. FOLLOW POC.
[2021-03-22 15:28] VITALS: BP 126/64
--- NOTE | 2021-03-22 16:00 | NUR ---
[facility] SPOKE WITH MELIA IN ADMISSIONS AT [facility] THIS AM. CM FAXED OVER SUBMITTED MEDICAID APPLICATION FOR REVIEW. [facility] FOLLOWING. HOPEFULL THAT [facility] WILL BE ABLE TO ACCEPT PT.
[2021-03-22 16:33] VITALS: BP 119/60
[2021-03-22 19:45] VITALS: BP 133/62
--- NOTE | 2021-03-23 05:43 | NUR ---
Assumed pt care at 1900. A/OX2-3,confused/forgetful but able to make needs known. at the bedside at HS. C/o generalized pain,medicated per EMAR with relief reported. Pt is anuric. LUE fistula in place positive for bruit/thrill. Fall preccauitons in place, will continue to monitor pt.
[2021-03-23 07:42] VITALS: BP 133/53
--- NOTE | 2021-03-23 15:26 | NUR ---
[facility] IS ACCEPTING OF PT FOR SHORT TERM SKILLED REHAB [place]ANSITION [place] MEDICA[place] PENDING WITH A SUBMITTED APPLICATION LTC. PLAN IS FOR PT TO DC AFTER DIALYSIS TOMORROW. CM NOTIFIED [facility] AND FAXED CLINICAL OVER INDICATING SOC WITH THEM ON Saturday03/25/21. COVID TEST TO BE DONE. CM FOLLOWING REGARDING DC TRANSPORT TOMORROW. CM ATTEMPTED PC TO PT'S SON. CM FOLLOWING.
[2021-03-23 15:39] VITALS: BP 132/76
[2021-03-23 21:00] VITALS: BP 150/68
--- NOTE | 2021-03-24 03:28 | NUR ---
Pt. rested quietly during the night when checked on during frequent rounds. He c/o generalized pain and po pain med given (see emar) with some relief noted. Bed alarm is on.
[2021-03-24 10:13] VITALS: BP 142/84
[2021-03-24] MEDS ORDERED: MIRALAX17 GM PO (14:59)
[2021-03-24] MEDS ORDERED: PERCOCET PO (14:59)
[2021-03-24] MEDS ORDERED: AMLODIPINE BESY10 MG PO (14:59)
[2021-03-24] MEDS ORDERED: LIDOPATCH1 EACH TRANSDERM (14:59)
[2021-03-24] MEDS ORDERED: SEROQUEL 25 MG25 M1 PO (14:59)
[2021-03-24 15:42] VITALS: BP 143/89
--- NOTE | 2021-03-24 16:28 | NUR ---
PT TO DC TO [facility] SKILLED THIS DAY. SON IS AWARE AND AGREEABLE. PT'S SPOUSE VISITED THIS AFTERNOON SHE WAS LESS THAN THRILLED ABOUT ARRANGEMENTS. CM INDICATED THAT WE HAVE A MORE RECENT DPOA DOCUMENT WITH JUST SON. CM INDICATED THAT AFTER VISITING WITH HER AND PT LAST SATURDAY CN HAD SENT INFO TO [facility] PER HER REQUEST AND THEY CAN'T ACCEPT. TRANSPORT ARRANGED FOR [phone]. CM FAXED DC INFO AND FLOW SHEETS TO [facility]. NO OTHER CM INTERVENTION INDICATED. CASE CLOSED.
[2021-03-24 16:57] VITALS: BP 143/89
--- NOTE | 2021-03-24 17:45 | NUR ---
TODAY THIS PT HAS BEEN D/C. HE DID HAVE A ROUND OF DIALYSIS TODAY AND HE HAD SOME STATED PAIN IN WHICH HE RECIEVED MEDS FOR. HE HAS HAD A COUPLE OF INCONITNENT BOWEL MOVEMENTS AND HAS OTHERWISE BEEN TURNED EVERY TWO HOURS. REPORT WAS CALLED AND GIVEN TO HIS FACILITY.
== END 2021-03-24 18:28 | DRG 70 ==
LOC: ER 21:50 → 4W 03-11 03:14 → EROBS 03-11 03:14 → 4W 03-11 12:02
PROVIDERS: Emergency Medicine; Hospitalist; ADMIT Internal Medicine; ATTEND Internal Medicine
PROC: 5A1D70Z Performance of Urinary Filtration, Intermittent, Less than 6 Hours Per Day (ICD-10-PCS; principal; 2021-03-20)
PROC: 5A1D70Z Performance of Urinary Filtration, Intermittent, Less than 6 Hours Per Day (ICD-10-PCS; 2021-03-22)
PROC: 5A1D70Z Performance of Urinary Filtration, Intermittent, Less than 6 Hours Per Day (ICD-10-PCS; 2021-03-24)
DX: G93.41 Metabolic encephalopathy (principal); N18.6 End stage renal disease; L89.213 Pressure ulcer of right hip, stage 3; L89.313 Pressure ulcer of right buttock, stage 3; E43 Unspecified severe protein-calorie malnutrition; F11.20 Opioid dependence, uncomplicated; I12.0 Hypertensive chronic kidney disease with stage 5 chronic kidney disease or end stage renal disease; F03.90 Unspecified dementia, unspecified severity, without behavioral disturbance, psychotic disturbance, mood disturbance, and anxiety; G89.4 Chronic pain syndrome; J44.9 Chronic obstructive pulmonary disease, unspecified; E78.5 Hyperlipidemia, unspecified; Z20.822 Contact with and (suspected) exposure to COVID-19; Z74.1 Need for assistance with personal care; G47.00 Insomnia, unspecified; F32.9 Major depressive disorder, single episode, unspecified; R40.0 Somnolence; R53.81 Other malaise; K21.9 Gastro-esophageal reflux disease without esophagitis; F17.210 Nicotine dependence, cigarettes, uncomplicated; D63.8 Anemia in other chronic diseases classified elsewhere; Z66 Do not resuscitate; Z99.2 Dependence on renal dialysis; Z79.899 Other long term (current) drug therapy
CPT/HCPCS: 10040; 32100